=== PATIENT | female | born 1950 | race Caucasian/White ===

== ENCOUNTER → 2017-02-20 | Outpatient (CLI) | payer MEDICARE, BC ==
[~2017-02-20] MED LIST: CIPR-225 PO; METF500T4 PO; METF500T8 PO; METR500T PO; OMEP-10 PO; no home medications
--- NOTE | 2017-02-24 18:27 | Diagnostic Imaging Report ---
Digital mammogram bilateral screening. This study was compared to the prior exams of 08/22/2014 and 08/24/2010. At this time, there are no current complaints. The current study was also evaluated with a Computer Aided Detection (CAD) system. FINDINGS: There are scattered fibroglandular densities in both breasts which could obscure a lesion. Overall, there does not appear to have been any significant change when compared to the prior exam. No primary or secondary sign of malignancy is noted. IMPRESSION: 1. There is no radiographic evidence for malignancy. 2. The patient should have her annual bilateral screening mammogram on schedule in January of 2018. ACR BI-RADS Category 1: Negative. Result letter will be mailed to the patient. Note: At least 10% of breast cancer is not imaged by mammography. Dictated by: Dictated on workstation # [id number]
== END ==
LOC: RAD 10:25
PROVIDERS: ATTEND Family Medicine
DX: Z12.31 Encounter for screening mammogram for malignant neoplasm of breast (principal)
CPT/HCPCS: 77067

== ENCOUNTER 2017-02-22 17:38 | Emergency (ER) | payer MEDICARE, BC ==
[~2017-02-22] VITALS: Ht 152.4 cm; Wt 72.1 kg
[~2017-02-22 17:38] MED LIST changes: -CIPR-225 PO; -METF500T4 PO; -METF500T8 PO; -METR500T PO
[2017-02-22] MEDS ORDERED: METF500T8 PO (18:25)
[2017-02-22] MEDS ORDERED: METF500T4 PO (18:25)
[2017-02-22 18:41] LABS: BASOPHILS # (AUTO) 0.1 10^3/uL (0.0-0.1); BASOPHILS % (AUTO) 0 % (0-10); EOSINOPHILS # (AUTO) 0.3 10^3/uL (0.0-0.3); EOSINOPHILS % (AUTO) 2 % (0-10); LYMPHOCYTES # (AUTO) 2.7 X 10^3 (1.0-4.0); LYMPHOCYTES % (AUTO) 20 % (12-44); MEAN CORPUSCULAR HEMOGLOBIN 29 PG (25-34); MEAN CORPUSCULAR HGB CONC 33 G/DL (32-36); MEAN CORPUSCULAR VOLUME 87 FL (80-99); MEAN PLATELET VOLUME 11.2 FL (7.4-10.4); MONOCYTES # (AUTO) 0.7 X 10^3 (0.0-1.0); MONOCYTES % (AUTO) 5 % (0-12); NEUTROPHILS # (AUTO) 9.8 X 10^3 (1.8-7.8); NEUTROPHILS % (AUTO) 72 % (42-75); PLATELET COUNT 274 10^3/uL (130-400); RED BLOOD COUNT 5.33 10^6/uL (4.35-5.85); RED CELL DISTRIBUTION WIDTH 13.1 % (10.0-14.5); WHITE BLOOD COUNT 13.5 10^3/uL (4.3-11.0)
[2017-02-22 18:42] LABS: BILIRUBIN,URINE NEGATIVE (NEGATIVE); KETONES,URINE NEGATIVE (NEGATIVE); LEUKOCYTE ESTERASE ,URINE 1+ (NEGATIVE); NITRITE,URINE NEGATIVE (NEGATIVE); PH,URINE 6 (5-9); PROTEIN,URINE NEGATIVE (NEGATIVE); UROBILINOGEN,URINE NORMAL (NORMAL)
[2017-02-22 19:03] LABS: ALANINE AMINOTRANSFERASE 39 U/L (0-55); ALBUMIN 4.2 G/DL (3.2-4.5); ANION GAP 10 MMOL/L (5-14); ASPARTATE AMINO TRANSFERASE 20 U/L (5-34); BILIRUBIN,TOTAL 0.3 MG/DL (0.1-1.0); BLOOD UREA NITROGEN 10 MG/DL (7-18); BUN/CREATININE RATIO 12; CALCIUM 9.7 MG/DL (8.5-10.1); CARBON DIOXIDE 26 MMOL/L (21-32); CHLORIDE 106 MMOL/L (98-107); CREATININE SERUM 0.83 MG/DL (0.60-1.30); GFR ESTIMATED > 60; GLUCOSE 206 MG/DL (70-105); LIPASE 35 U/L (8-78); POTASSIUM 4.3 MMOL/L (3.6-5.0); TOTAL PROTEIN 7.9 G/DL (6.4-8.2)
[2017-02-22 19:24] LABS: SODIUM 142 MMOL/L (135-145)
--- NOTE | 2017-02-22 20:04 | Diagnostic Imaging Report ---
PROCEDURE: CT abdomen and pelvis without contrast. TECHNIQUE: Multiple contiguous axial images were obtained through the abdomen and pelvis without the use of intravenous contrast. INDICATION: Left lower quadrant pain x2 days Lung bases are clear. There is a calcified granuloma at the left lung base. There is a sliding hiatal hernia. The liver appears normal. The gallbladder is surgically absent. The pancreas appears normal. The spleen is not enlarged. The adrenal glands are normal. The kidneys appear normal. There is calcific atherosclerosis of the aorta and iliac arteries. There is no intraperitoneal free air or free fluid. There is diverticulosis of the colon. There is inflammatory change of the descending colon consistent with diverticulitis. Uterus is present. Urinary bladder appears normal. Adnexa are unremarkable. IMPRESSION: Diverticulitis of the descending colon. Dictated by: Dictated on workstation # [id number]
[2017-02-22] MEDS ORDERED: NS IV 1000 ML 1,000 ML IV ONE (20:09)
[2017-02-22] MEDS ORDERED: metroNIDAZOLE 500 MG (FLAGYL) TAB PO ONE (20:15)
[2017-02-22] MEDS ORDERED: METR500T PO (20:15)
[2017-02-22] MEDS ORDERED: CIPR-225 PO (20:15)
[2017-02-22] MEDS ORDERED: LEVOFLOXACIN 500 MG/100 ML IV 100 ML IV ONE (20:15)
--- NOTE | 2017-02-22 20:15 | ED Abdominal Pain ---
General Chief Complaint: Abdominal/GI Problems Stated Complaint: L SIDE PAIN Nursing Triage Note: PT CO OF LLQ PAIN Sepsis Screen: No Definite Risk Source of Information: Patient Exam Limitations: No Limitations History of Present Illness Time Seen By Provider: 19:25 Initial Comments This pleasant 67-year-old woman presents to the emergency room with left lower quadrant pain since yesterday morning. Temperature is 99.8. She denies any fevers over 100. She denies nausea, vomiting, diarrhea, or constipation. Urine has been normal. She denies any blood in her stools. Pain is intermittent and ranges from 0-10. Last bowel movement was this morning and was reportedly normal. She is having no significant pain at this time. Allergies and Home Medications Allergies Coded Allergies: IV Dye, Iodine Containing Contrast (Verified Allergy, 02/12/13) Uncoded Allergies: ASPRIN (Allergy, Mild, 03/02/10) Home Medications Ciprofloxacin HCl 500 Mg Tablet, 500 MG PO BID, #20 Prescribed by: CYRUS ANGEL on 02/22/172014 Metformin HCl 500 Mg Tab.er.24h, 500 MG PO DAILY, (Reported) Metronidazole 500 Mg Tablet, 500 MG PO TID, #30 Prescribed by: CYRUS ANGEL on 02/22/172014 Review of Systems Constitutional: no symptoms reported EENTM: No Symptoms Reported Respiratory: No Symptoms Reported Cardiovascular: No Symptoms Reported Gastrointestinal: See HPI Genitourinary: No Symptoms Reported Musculoskeletal: no symptoms reported Skin: no symptoms reported Psychiatric/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: No Symptoms Reported Endocrine: No Symptoms Reported Hematologic/Lymphatic: No Symptoms Reported Past Xwzffvv-Ynqpby-Rlpebu Hx Patient Social History Alcohol Use: Denies Use Recreational Drug Use: No Smoking Status: Never a Smoker Recent Foreign Travel: No Contact w/Someone Who Travel: No Recent Infectious Disease Expo: No Recent Hopitalizations: No Seasonal Allergies Seasonal Allergies: No Surgeries HX Surgeries: Yes (EGD/ESOPHAGEAL DILATIONS) Surgeries: Gallbladder, Oophorectomy, Tubal Ligation Respiratory Hx Respiratory Disorders: Yes (CPAP AT NIGHT) Respiratory Disorders: Sleep Apnea Cardiovascular Hx Cardiac Disorders: No 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 Hx 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 Genitourinary Hx Genitourinary Disorders: Yes Genitourinary Disorders: Kidney Stones Gastrointestinal Hx Gastrointestinal Disorders: Yes (esophageal strictures status post dilation) Gastrointestinal Disorders: Gastroesophageal Reflux, Hiatal Hernia Musculoskeletal Hx Musculoskeletal Disorders: No Endocrine Hx Endocrine Disorders: Yes (Diabetes, Diet controlled) Endocrine Disorders: Diabetes, Non-Insulin dep HEENT HX ENT Disorders: No Cancer Hx Cancer: No Psychosocial Hx Psychiatric Problems: No Integumentary HX Skin/Integumentary Disorder: No Blood Transfusions Hx Blood Disorders: No Physical Exam Vital Signs VS - Last 72 Hours, by Label 02/22/17 02/22/17 18:05 21:45 Temp 99.8 97.5 Pulse 114 90 Resp 18 18 B/P (MAP) 139/71 Pulse Ox 94 94 Capillary Refill : Less Than 3 Seconds General Appearance: WD/WN, no apparent distress HEENT: PERRL/EOMI, normal ENT inspection, pharynx normal Neck: normal inspection Respiratory: lungs clear, normal breath sounds, no respiratory distress, no accessory muscle use Cardiovascular: regular rate, rhythm, no edema, no murmur Gastrointestinal: normal bowel sounds, soft, tenderness (left side of abdomen) Extremities: normal inspection, no pedal edema Back: normal inspection 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, no motor/sensory deficits, alert, normal mood/affect, oriented x 3 Skin: normal color, warm/dry Progress/Results/Core Measures Results/Orders Lab Results Laboratory Tests Test 02/22/17 18:00 02/22/17 18:34 Range/Units White Blood Count 13.5 H 4.3-11.0 10^3/uL Red Blood Count 5.33 4.35-5.85 10^6/uL Hemoglobin 15.2 11.5-16.0 G/DL Hematocrit 46 35-52 % Mean Corpuscular Volume 87 80-99 FL Mean Corpuscular Hemoglobin 29 25-34 PG Mean Corpuscular Hemoglobin Concent 33 32-36 G/DL Red Cell Distribution Width 13.1 10.0-14.5 % Platelet Count 274 130-400 10^3/uL Mean Platelet Volume 11.2 H 7.4-10.4 FL Neutrophils (%) (Auto) 72 42-75 % Lymphocytes (%) (Auto) 20 12-44 % Monocytes (%) (Auto) 5 0-12 % Eosinophils (%) (Auto) 2 0-10 % Basophils (%) (Auto) 0 0-10 % Neutrophils # (Auto) 9.8 H 1.8-7.8 X 10^3 Lymphocytes # (Auto) 2.7 1.0-4.0 X 10^3 Monocytes # (Auto) 0.7 0.0-1.0 X 10^3 Eosinophils # (Auto) 0.3 0.0-0.3 10^3/uL Basophils # (Auto) 0.1 0.0-0.1 10^3/uL Sodium Level 142 135-145 MMOL/L Potassium Level 4.3 3.6-5.0 MMOL/L Chloride Level 106 98-107 MMOL/L Carbon Dioxide Level 26 21-32 MMOL/L Anion Gap 10 5-14 MMOL/L Blood Urea Nitrogen 10 7-18 MG/DL Creatinine 0.83 0.60-1.30 MG/DL Estimat Glomerular Filtration Rate > 60 BUN/Creatinine Ratio 12 Glucose Level 206 H 70-105 MG/DL Calcium Level 9.7 8.5-10.1 MG/DL Total Bilirubin 0.3 0.1-1.0 MG/DL Aspartate Amino Transf (AST/SGOT) 20 5-34 U/L Alanine Aminotransferase (ALT/SGPT) 39 0-55 U/L Alkaline Phosphatase 109 40-136 U/L Total Protein 7.9 6.4-8.2 G/DL Albumin 4.2 3.2-4.5 G/DL Lipase 35 8-78 U/L Urine Color YELLOW Urine Clarity CLEAR Urine pH 6 5-9 Urine Specific [place] 1.015 L 1.016-1.022 Urine Protein NEGATIVE NEGATIVE Urine Glucose (UA) 2+ H NEGATIVE Urine Ketones NEGATIVE NEGATIVE Urine Nitrite NEGATIVE NEGATIVE Urine Bilirubin NEGATIVE NEGATIVE Urine Urobilinogen NORMAL NORMAL MG/DL Urine Leukocyte Esterase 1+ H NEGATIVE Urine RBC (Auto) NEGATIVE NEGATIVE Urine RBC NONE /HPF Urine WBC 2-5 /HPF Urine Squamous Epithelial Cells 10-25 H /HPF Urine Crystals NONE /LPF Urine Bacteria NEGATIVE /HPF Urine Casts NONE /LPF Urine Mucus NEGATIVE /LPF Urine Culture Indicated NO My Orders Orders - CYRUS PALMER MD Cbc With Automated Diff (02/22/17 18:09) Comprehensive Metabolic Panel (02/22/17 18:09) Lipase (02/22/17 18:09) Ua Culture If Indicated (02/22/17 18:09) Saline Lock/Iv-Start (02/22/17 18:09) Ct Abdomen/Pelvis Wo (02/22/17 19:41) Ns Iv 1000 Ml (Sodium Chloride 0.9%) (02/22/17 20:09) Levofloxacin 500 Mg/100 Ml Iv (Levaquin (02/22/17 20:15) Metronidazole Tablet (Flagyl Tablet) (02/22/17 20:15) Acetaminophen Tablet (Tylenol Tablet) (02/22/17 20:30) Iv Infusion <= First Hr Ed (02/22/17 ) Vital Signs/I&O Vital Sign - Last 12Hours 02/22/17 02/22/17 18:05 21:45 Temp 99.8 97.5 Pulse 114 90 Resp 18 18 B/P (MAP) 139/71 Pulse Ox 94 94 Blood Pressure Mean: 93 Progress Note : Progress Note Patient was found to have leukocytosis. In the context of left-sided abdominal pain, colitis or diverticulitis was suspected. Options were discussed including empiric antibiotic therapy versus imaging. Patient elects imaging. Diverticulitis was identified on the CT scan. A dose of IV Levaquin was administered in the emergency room as patient does have diabetes and had borderline vital signs. Flagyl was administered orally along with Tylenol. A liter of IV fluids was infused. Return precautions were discussed. Diagnostic Imaging Diagonstic Imaging: CT Plain Films/CT/US/NM/MRI: abdomen, pelvis Comments CT abdomen and pelvis viewed by me and report reviewed. See report below: NAME: ROXANA ACOSTA [facility] REC#: [id number] PT STATUS: REG ER : 1950 PHYSICIAN: CYRUS PALMER MD ADMIT DATE: 02/22/17/ER Signed Date of Exam: 02/22/17 CT ABDOMEN/PELVIS WO PROCEDURE: CT abdomen and pelvis without contrast. TECHNIQUE: Multiple contiguous axial images were obtained through the abdomen and pelvis without the use of intravenous contrast. INDICATION: Left lower quadrant pain x2 days Lung bases are clear. There is a calcified granuloma at the left lung base. There is a sliding hiatal hernia. The liver appears normal. The gallbladder is surgically absent. The pancreas appears normal. The spleen is not enlarged. The adrenal glands are normal. The kidneys appear normal. There is calcific atherosclerosis of the aorta and iliac arteries. There is no intraperitoneal free air or free fluid. There is diverticulosis of the colon. There is inflammatory change of the descending colon consistent with diverticulitis. Uterus is present. Urinary bladder appears normal. Adnexa are unremarkable. IMPRESSION: Diverticulitis of the descending colon. Dictated by: Dictated on workstation # [id number] Dict: 02/22/171999 Trans: 02/22/172003 NEAL [id number] Interpreted by: COSME WOOD Electronically signed by:COSME WOOD 02/22/172003 Departure Impression Impression: Primary Impression: Diverticulitis of intestine Qualified Codes: K57.32 - Diverticulitis of large intestine without perforation or abscess without bleeding Disposition: HOME, SELF-CARE Condition: Improved Departure-Patient Inst. Decision time for Depature: 20:12 Referrals: JOON ARCEO MD (PCP/Family) Primary Care Physician Patient Instructions: Diverticulitis (DC) Add. Discharge Instructions: Complete your antibiotics as prescribed. Clear liquid diet until pain improves. Then gradually advance your diet with small quantities of bland food as tolerated. Avoid foods with fibrous particulate matter such as popcorn, frequent with small seeds, nuts, etc. Return to care if symptoms worsen. Follow up with your doctor later this week. Take Tylenol up to 1000 mg every 6 hours as needed for pain. All discharge instructions reviewed with patient and/or family. Voiced understanding. Scripts Ciprofloxacin HCl (Cipro) 500 Mg Tablet 500 MG PO BID, #20 TAB Prov: CYRUS PALMER MD 02/22/17 Metronidazole (Flagyl) 500 Mg Tablet 500 MG PO TID, #30 TAB Prov: CYRUS PALMER MD 02/22/17 Copy Copies To 1: JOON ARCEO MD, JOSHUA T MD Feb 22, 2017 20:15
[2017-02-22] MEDS ORDERED: ACETAMINOPHEN 500 MG TAB (TYLENOL) PO ONE (20:30)
[2017-02-22 21:45] VITALS: BP 139/65
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
== END 2017-02-22 21:47 | disposition home or self-care (01) ==
LOC: EDUNIT# 17:38 → ER 17:39
DX: K57.32 Diverticulitis of large intestine without perforation or abscess without bleeding (principal); E11.9 Type 2 diabetes mellitus without complications
CPT/HCPCS: 36415; 74176; 80053; 81000; 83690; 85025; 96361; 96365

== ENCOUNTER → 2017-08-18 | Outpatient (CLI) | payer MEDICARE, BC ==
[~2017-08-18] MED LIST changes: +CIPR-225 PO; +METF500T4 PO; +METF500T8 PO; +METR500T PO; +PANT40TA2 PO
== END ==
LOC: PREOP 12:10
PROVIDERS: ATTEND Surgery
DX: Z01.818 Encounter for other preprocedural examination (principal); R13.10 Dysphagia, unspecified; K21.9 Gastro-esophageal reflux disease without esophagitis

== ENCOUNTER 2017-08-19 08:57 | Day surgery (SDC) | payer MEDICARE, BC ==
[~2017-08-19] VITALS: Ht 152.4 cm; Wt 72.4 kg
[~2017-08-19 08:57] MED LIST changes: -PANT40TA2 PO
[2017-08-19 09:22] VITALS: BP 146/91
[2017-08-19] MEDS ORDERED: NS IV 500 ML 500 ML ONE (09:23)
[2017-08-19] MEDS ORDERED: NS IV 500 ML 500 ML IV SCH (09:30)
[2017-08-19] MEDS ORDERED: HURRICAINE EXT TUBE (BENZOCAINE) XX PRN (09:30)
[2017-08-19] MEDS ORDERED: LIDOCAINE JELLY 2% (XYLOCAINE) 5 ML TUBE MM PRN (09:30)
[2017-08-19] MEDS ORDERED: MIDAZOLAM 2 MG/2 ML (VERSED) VIAL ONE ×3 (10:41)
[2017-08-19] MEDS ORDERED: LIDOCAINE JELLY 2% (XYLOCAINE) 5 ML TUBE ONE (10:42)
[2017-08-19] MEDS ORDERED: fentaNYL INJECTION 100 MCG/2 ML AMP ONE (10:42)
[2017-08-19] MEDS ORDERED: HURRICAINE EXT TUBE (BENZOCAINE) ONE (10:42)
--- NOTE | 2017-08-19 10:47 | Conscious Sedation/ASA ---
Conscious Sedation Pre-Proced Time Reviewed: 10:00 ASA Class: 2 Airway Mallampati Classification: ([place] appropriate class) I. II. III, IV Lungs Heart ASA score ASA 1: a normal healthy patient ASA 2: a patient with a mild systemic disease (mid diabetes, controlled hypertension, obesity ASA 3: a patient with a severe systemic disease that limits activity (angina , COPD, prior Myocardial infarction) ASA 4: a patient with an incapacitating disease that is a constant threat to life (CHF, renal failure) ASA 5: a moribund patient not expected to survive 24 hrs. (ruptured aneurysm) ASA 6: a declared brain patient whose organs are being harvested. For emergent operations, add the letter E after the classification Grade 2 Sedation Plan: Analgesia, Amnesia, Plan communicated to team members, Discussed options with patient/fam, Discussed risks with patient/fam Note The patient is an appropriate candidate to undergo the planned procedure, sedation, and anesthesia. The patient immediately re-assessed prior to indication. LEE MOSS MD Aug 19, 2017 10:47 am
--- NOTE | 2017-08-19 10:47 | Progress Note-Pre Operative ---
Pre-Operative Progress Note H&P Reviewed The H&P was reviewed, patient examined and no changes noted. Date Seen by Provider: Aug 19, 2017 Time Seen by Provider: 10:00 Date H&P Reviewed: Aug 19, 2017 Time H&P Reviewed: 10:00 Pre-Operative Diagnosis: dysphagia LEE MOSS MD Aug 19, 2017 10:47 am
[2017-08-19] MEDS: fentaNYL INJECTION 100 MCG/2 ML AMP IVP PRN ×2 (10:48→10:53)
[2017-08-19] MEDS: MIDAZOLAM 2 MG/2 ML (VERSED) VIAL IVP PRN ×2 (10:50→10:55)
[2017-08-19] MEDS ORDERED: ACETAMINOPHEN 325 MG TABLET/CAPLET (TYLENOL) PO PRN (11:00)
[2017-08-19] MEDS ORDERED: morphine INJ 10 MG/ML 1ML (SYR OR VIAL) IV PRN (11:00)
[2017-08-19] MEDS ORDERED: ONDANSETRON 4 MG/2 ML (SDV) Z0FRAN IV PRN (11:00)
[2017-08-19] MEDS ORDERED: HYDROcodone/APAP 5 MG/325 MG (LORTAB) TAB PO PRN (11:00)
--- NOTE | 2017-08-19 11:18 | Progress Note-Post Operative ---
Post-Operative Progess Note Surgeon (s)/Manager Of It (s) Surgeon LEE MOSS MD Manager Of It: none Pre-Operative Diagnosis dysphagia Post-Operative Diagnosis reflux esophagitis(B-C), distal esophageal stricture, large HH(4cm), moderate gastritis. Procedure & Operative Findings Date of Procedure 08/19/17 Procedure Performed/Findings EGD with bx and balloon dilatation. Anesthesia Type GET Estimated Blood Loss Estimated blood loss (mL): minimal Specimens/Packing Specimens Removed antrum, GE jxn LEE MOSS MD Aug 19, 2017 11:18 am
[2017-08-19] MEDS ORDERED: PANT40TA2 PO ×2 (11:19)
--- NOTE | 2017-08-19 11:20 | Discharge Inst-Surgical ---
D/C Lap Instructions-KIDO New, Converted, or Re-Newed RX: RX on Chart Follow Up PRN Activity as tolerated High Fiber Diet 25g or more per day Avoid Alcohol, Caffeine, Spicy [place] and Acid foods. Drink 64 fluid oz or more of fluids per day. Symptoms to Report: Fever over 101 degree F, Nausea/Vomiting If any problems/questions: Contact your physician or go to Emergency Room LEE MOSS MD Aug 19, 2017 11:20 am
[2017-08-19 11:30] VITALS: BP 147/83
[2017-08-19 12:10] VITALS: BP 123/69
--- NOTE | 2017-08-19 21:36 | OPERATIVE REPORT ---
DATE OF SERVICE: 08/19/2017 ATTENDING PRIMARY CARE PHYSICIAN: Dr. Krystal Benavides. PREOPERATIVE DIAGNOSIS: Dysphagia. POSTOPERATIVE DIAGNOSIS: Reflux esophagitis between class B and C, moderate distal esophageal stricture, large hiatal hernia approximately 4 cm in size, moderate severity gastritis. PROCEDURE: EGD with biopsy and balloon dilatation. SURGEON: Dr. Moss. ANESTHESIA: Conscious sedation. ESTIMATED BLOOD LOSS: Minimal. FINDINGS: Reflux esophagitis between class B and C with a distal esophageal stricture and Schatzki's ring. There is also a concomitant large hiatal hernia approximately 4 cm in size. Moderate severity gastritis. Pylorus and duodenum appeared normal with no distal obstructions. DISPOSITION: The patient tolerated the procedure well. INDICATIONS: The patient is a 67-year-old female who was referred to us for reflux type of symptoms progressing the dysphagia. She reports that she has had this issue before in the past and has undergone previous EGDs as well as dilatations. Her last one was approximately 4 years ago. Over time she reports recurrent episodes of reflux which were initially manageable; however, she developed dysphagia, especially for specific solids with substernal pressure sensation and occasional episodes of regurgitation. DESCRIPTION OF PROCEDURE: The patient was brought to the endoscopy suite, laid in the left lateral decubitus position. After adequate IV pain and sedating medications and conscious sedation anesthesia, the mouthpiece was applied. The endoscope was placed in the mouth, visualizing the pharynx and hypopharyngeal region. Vocal cords, epiglottis and vallecula identified and appeared to be normal. The endoscope was then gently intubated at the esophageal opening and esophagus insufflated. The endoscope was then advanced to the first, second and third portions of the esophagus. At the level of the GE junction, a reflux esophagitis between class B and C identified. There was also a distal esophageal stricture identified which was moderate in severity. A biopsy was taken of this area using biopsy forceps with visualization of good hemostasis. The endoscope was then advanced through the area of stricture with minimal resistance and the endoscope retroflexed, visualizing a large hiatal hernia approximately 4 cm in size. The stricture was also identified through this view. A moderate severity gastritis was noted. There were no formal ulcers, polyps or any neoplasms identified. A biopsy was taken of the stomach antrum with visualization of good hemostasis. The endoscope was then advanced through the pylorus and the first and second portions of the duodenum, which appeared normal with no distal obstructions. We then proceeded with dilatation of esophageal stricture. A medium sized CRE fixed guidewire balloon was placed into the stomach under direct visualization. The balloon was then pulled back to the area of the stricture. We first proceeded with 3 atmospheres of pressure or 15 mm in diameter with no resistance. We then proceeded to 4.5 atmospheres of pressure or 17 mm diameter with minimal resistance. We then proceeded to 7 atmospheres of pressure or 18 mm in diameter with mild to moderate resistance and left this in place for approximately 60 seconds. The balloon was desufflated and removed. There were no mucosal tears or any bleeding identified. The endoscope was then slowly withdrawn while suctioning residual air and taking a second look with no additional findings. The patient tolerated the procedure well. We will have her undergo the necessary lifestyle and diet accommodation including small and more frequent meals, avoidance of eating at night as well as head elevation while laying supine. She also needs to avoid caffeinated beverages, spicy, greasy and acidic foods. We will also start her on Protonix 40 mg daily. Job ID: [id number] DocumentID: [id number] Dictated Date: 08/19/2017 11:25:37 Time Study Technician Date: 08/19/2017 21:35:38 Dictated By: LEE MOSS MD
== END 2017-08-19 12:23 | disposition home or self-care (01) ==
LOC: ENDO 08:57
PROVIDERS: ATTEND Surgery
DX: K21.0 Gastro-esophageal reflux disease with esophagitis (principal); K22.2 Esophageal obstruction; K44.9 Diaphragmatic hernia without obstruction or gangrene; K29.70 Gastritis, unspecified, without bleeding; E11.9 Type 2 diabetes mellitus without complications; Z79.84 Long term (current) use of oral hypoglycemic drugs
CPT/HCPCS: 88305; 88342

== ENCOUNTER → 2018-12-02 | Outpatient (CLI) | payer MEDICARE, BC ==
[~2018-12-02] MED LIST changes: +METF-397 PO; -METF500T4 PO; +PANT40TA2 PO
--- NOTE | 2018-12-02 16:59 | Diagnostic Imaging Report ---
INDICATION: Right flank pain EXAMINATION: KUB 4:31 p.m. Gallbladder surgically absent. Bowel gas pattern is normal. There are no pathologic masses or calcifications. IMPRESSION: No acute abnormalities in the abdomen. Dictated by: Dictated on workstation # [id number]
== END ==
LOC: RAD 16:00
PROVIDERS: ATTEND Nurse Practitioner Family
DX: R10.9 Unspecified abdominal pain (principal); Z90.49 Acquired absence of other specified parts of digestive tract
CPT/HCPCS: 74018

== ENCOUNTER → 2018-12-09 | Outpatient (CLI) | payer MEDICARE, BC ==
[2018-12-09 09:11] LABS: ALANINE AMINOTRANSFERASE 64 U/L (0-55); ALBUMIN 4.1 GM/DL (3.2-4.5); ALKALINE PHOSPHATASE 85 U/L (40-136); BILIRUBIN,TOTAL 0.5 MG/DL (0.1-1.0); BUN/CREATININE RATIO 15; CALCIUM 9.4 MG/DL (8.5-10.1); CARBON DIOXIDE 24 MMOL/L (21-32); CHLORIDE 108 MMOL/L (98-107); CREATININE SERUM 0.75 MG/DL (0.60-1.30); GFR ESTIMATED > 60; GLUCOSE 130 MG/DL (70-105); POTASSIUM 4.2 MMOL/L (3.6-5.0); SODIUM 142 MMOL/L (135-145); TOTAL PROTEIN 7.4 GM/DL (6.4-8.2)
--- NOTE | 2018-12-09 10:25 | Diagnostic Imaging Report ---
PROCEDURE: CT abdomen and pelvis without contrast. TECHNIQUE: Multiple contiguous axial images were obtained through the abdomen and pelvis without the use of intravenous contrast. INDICATION: Right flank pain. COMPARISON: Comparison is made with prior CT from 02/22/2017. FINDINGS: The lung bases are clear apart from a calcified granuloma in the left lower lobe. No discrete liver mass is seen. The gallbladder is surgically absent. No biliary duct dilatation is seen. The pancreas and spleen are unremarkable. No adrenal mass is seen. No definite renal calculi or hydronephrosis is identified apart from questionable tiny nonobstructing calculus upper pole right kidney. No definite ureteral or bladder calculi are seen. There is a moderate-sized hiatal hernia. The aorta is non-aneurysmal but heavily calcified. The bowel loops are normal caliber. There is no ascites. IMPRESSION: 1. Moderate-sized hiatal hernia. 2. Tiny nonobstructing right upper pole renal calculus. No ureteral calculi or hydronephrosis is detected. Dictated by: Dictated on workstation # [id number]
== END ==
LOC: RAD 08:17
PROVIDERS: ATTEND Nurse Practitioner Family
DX: K44.9 Diaphragmatic hernia without obstruction or gangrene (principal); Z90.49 Acquired absence of other specified parts of digestive tract
CPT/HCPCS: 36415; 74176; 80053

== ENCOUNTER 2019-01-13 12:38 | Inpatient (IN) | payer MEDICARE, BC ==
[~2019-01-13] VITALS: Ht 154.9 cm; Wt 73.0 kg
--- OUTSIDE RECORDS SUMMARY | 2019-01-13 12:47 | XMS REPORT | CCD ---
Author Author Nadia Lin Organization Krystal Benavides MD, [facility] Address [address] [place] [address] Phone Care Team Providers Care Commercial Finance Manager Name Role Phone PP Unavailable CCM Unavailable Summary Purpose Interface Exchange Insurance Providers Payer name Policy type / Coverage type Covered constitution party ID Effective Begin Date Effective End Date WPS Medicare Part B Medicare Part B [id number] 2018 Unknown [facility] Medicare Part B [id number] Unknown Family history Daughter Diagnosis Age At Onset Alcoholism Unknown Diabetes mellitus Type 2 Unknown Mother Diagnosis Age At Onset Alcoholism Unknown Ovarian cancer Unknown Cancer Unknown Bleeding disorders Unknown cervical cancer Unknown Runs in the family Diagnosis Age At Onset Heart disease Unknown Diabetes mellitus Type 2 Unknown Brother Diagnosis Age At Onset Diabetes mellitus Type 2 Unknown Father Diagnosis Age At Onset Kidney cancer Unknown Cancer Unknown Social History Social History Element Codes Description Effective Dates Employment Unknown 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 [employer] 02/26/2018 Marital status Unknown Raúl 07/24/2016 Number of children Unknown 10 2 07/24/[address]: 8529266 Former smoker quit 2005 07/24/[address]: 809859410 Never drinks alcohol 07/24/2016 Allergies, Adverse Reactions, Alerts Substance Reaction Codes Entered Date Inactivated Date Status aspirin hives, RxNorm: 1191 07/24/2016 No Inactive Date Active IV DYE, IODINE CONTAINING hives Unknown 07/24/2016 No Inactive Date Active Past Medical History Illness Codes Condition Status Onset Date Resolved Date Right lower quadrant pain ICD-9: 789.03 ICD-10: R10.31 Active 12/02/2018 Unknown Encounter for general adult medical examination with abnormal findings ICD-9: V70.0 ICD-10: Z00.01 Active 02/20/2017 Unknown Rash and other nonspecific skin eruption ICD-9: 782.1 ICD-10: R21 Active 08/23/2018 Unknown Type 2 diabetes mellitus without complications ICD-9: 250.00 ICD-10: E11.9 Active 07/23/2016 Unknown Gastro-esophageal reflux disease without esophagitis ICD-9: 530.81 ICD-10: K21.9 Active 12/15/2017 Unknown Primary central sleep apnea ICD-9: 327.22 ICD-10: G47.31 Active 12/15/2017 Unknown Diabetes Unknown Active 08/10/2017 Unknown Dysphagia, pharyngeal phase ICD-9: 787.23 ICD-10: R13.13 Active 08/10/2017 Unknown Encounter for screening mammogram for malignant neoplasm of breast ICD-9: V76.12 ICD-10: Z12.31 Active 02/10/2017 Unknown sleep apnea Unknown Active 07/24/2016 Unknown Torticollis Unknown Active 1950 Unknown Obstructive sleep apnea (adult) (pediatric) ICD-9: 327.23 ICD-10: G47.33 Active 07/23/2016 Unknown Personal history of colonic polyps ICD-9: V12.72 ICD-10: Z86.010 Active 07/23/2016 Unknown Problems Condition Codes Effective Dates Condition Status Right lower quadrant pain ICD-9: 789.03 ICD-10: R10.31 12/02/2018 Active Encounter for general adult medical examination with abnormal findings ICD-9: V70.0 ICD-10: Z00.01 02/20/2017 Active Rash and other nonspecific skin eruption ICD-9: 782.1 ICD-10: R21 08/23/2018 Active Type 2 diabetes mellitus without complications ICD-9: 250.00 ICD-10: E11.9 07/23/2016 Active Gastro-esophageal reflux disease without esophagitis ICD-9: 530.81 ICD-10: K21.9 12/15/2017 Active Primary central sleep apnea ICD-9: 327.22 ICD-10: G47.31 12/15/2017 Active Diabetes Unknown 08/10/2017 Active Dysphagia, pharyngeal phase ICD-9: 787.23 ICD-10: R13.13 08/10/2017 Active Encounter for screening mammogram for malignant neoplasm of breast ICD-9: V76.12 ICD-10: Z12.31 02/10/2017 Active sleep apnea Unknown 07/24/2016 Active Torticollis Unknown 1950 Active Obstructive sleep apnea (adult) (pediatric) ICD-9: 327.23 ICD-10: G47.33 07/23/2016 Active Personal history of colonic polyps ICD-9: V12.72 ICD-10: Z86.010 07/23/2016 Active Medications Medication Codes Instructions Start Date Stop Date Status Fill Instructions metformin 1,000 mg tablet RxNorm: 311260 Tablet(s) TAKE ONE TABLET BY MOUTH TWICE A DAY 11/19/2018 05/17/2019 Active metformin 1,000 mg tablet RxNorm: 734675 TAKE ONE TABLET BY MOUTH TWICE A DAY 11/18/2018 11/18/2018 Inactive metformin 1,000 mg tablet RxNorm: 926431 TAKE ONE TABLET BY MOUTH TWICE A DAY 11/17/2018 11/17/2018 Inactive betamethasone valerate 0.1 % topical cream RxNorm: 303230 1 Application TOP BID 09/06/2018 09/05/2018 Inactive betamethasone valerate 0.1 % topical cream RxNorm: 818959 1 Application TOP BID 09/06/2018 09/06/2018 Inactive Diflucan 150 mg tablet RxNorm: 696549 1 Tablet(s) PO daily 09/12/2018 Inactive ketoconazole 2 % topical cream RxNorm: 541666 1 Application TOP BID 09/06/2018 09/19/2018 Inactive Diflucan 150 mg tablet RxNorm: 471319 1 Tablet(s) PO daily 09/05/2018 Inactive ketoconazole 2 % topical cream RxNorm: 174469 1 Application TOP BID 09/06/2018 09/05/2018 Inactive metformin 1,000 mg tablet RxNorm: 027670 TAKE ONE TABLET BY MOUTH TWICE A DAY 08/18/2018 11/15/2018 Inactive metformin 1,000 mg tablet RxNorm: 968373 Tablet(s) PO TAKE ONE TABLET BY MOUTH TWICE A DAY 01/13/2018 05/12/2018 Inactive metformin 1,000 mg tablet RxNorm: 337020 Tablet(s) PO TAKE ONE TABLET BY MOUTH TWICE A DAY 01/11/2018 01/12/2018 Inactive metformin 1,000 mg tablet RxNorm: 579205 1 Tablet(s) PO BID 11/201701/17/2018 Inactive metformin 500 mg tablet RxNorm: 616340 TAKE ONE TABLET BY MOUTH TWICE A DAY 10/30/2017 01/10/2018 Inactive Pepcid 20 mg tablet RxNorm: 429780 1 Tablet(s) PO BID 201603/07/2018 Inactive metformin 500 mg tablet RxNorm: 072756 TAKE ONE TABLET BY MOUTH TWICE A DAY 08/04/2017 10/29/2017 Inactive metformin 500 mg tablet RxNorm: 639460 TAKE ONE TABLET BY MOUTH TWICE A DAY 08/04/2017 12/23/2017 Inactive metformin 500 mg tablet RxNorm: 685256 1 Tablet(s) PO BID 12/2307/20/2017 Inactive metformin 500 mg tablet RxNorm: 187570 1 Tablet(s) PO BID 08/0712/22/2016 Inactive Tylenol PM Extra Strength 25 mg-500 mg tablet RxNorm: 9297244 1 Tablet(s) PO QHS No Start Date Active Hair,Nails and Skin Vitamin oral RxNorm: 13395 oral No Start Date Active metformin 500 mg tablet RxNorm: 386619 1 Tablet(s) PO BID No Start Date 08/06/2016 Inactive Medication Administered No Medication Administered data Immunizations No Immunization data Assessments Condition Codes Effective Dates Right lower quadrant pain ICD-10: R10.31 ICD-9: 789.03 12/02/2018 Type 2 diabetes mellitus without complications ICD-10: E11.9 ICD-9: 250.00 08/23/2018 Rash and other nonspecific skin eruption ICD-10: R21 ICD-9: 782.1 08/23/2018 Encounter for general adult medical examination with abnormal findings ICD-10: Z00.01 ICD-9: V70.0 02/26/2018 Primary central sleep apnea ICD-10: G47.31 ICD-9: 327.22 12/15/2017 Gastro-esophageal reflux disease without esophagitis ICD-10 : K21.9 ICD-9: 530.81 12/15/2017 Dysphagia, pharyngeal phase ICD-10: R13.13 ICD-9: 787.23 08/10/2017 Encounter for screening mammogram for malignant neoplasm of breast ICD-10: Z12.31 ICD-9: V76.12 02/10/2017 Obstructive sleep apnea (adult) (pediatric) ICD-10: G47.33 ICD-9: 327.23 07/24/2016 Personal history of colonic polyps ICD-10: Z86.010 ICD-9: V12.72 07/24/2016 Reason For Visit Reason For Visit Effective Dates Notes abdominal pain 12/02/2018 rash 08/23/2018 Annual Medicare Wellness Exam 02/26/2018 diabetes mellitus 12/15/2017 diabetes mellitus 08/10/2017 Annual Medicare Wellness Exam 02/20/2017 diabetes mellitus 02/10/2017 diabetes mellitus 07/24/2016 Results Observation Observation Code Item Item Code Result Date Tsh Ord6 TSH (3rd IS) 0.57 uIU/mL 08/27/2018 Lipid Ord30 CHOL 167 mg/dL 08/27/2018 Lipid Ord30 HDL 46.0 mg/dl 08/27/2018 Lipid Ord30 TRIG 204 mg/dL 08/27/2018 Lipid Ord30 LDL 80 mg/dL 08/27/2018 Lipid Ord30 C/HDL 3.6 Ratio 08/27/2018 Comp Metabolic Jiw800 NA 143 mEq/L 08/27/2018 Comp Metabolic Jit141 K 4.3 mEq/L 08/27/2018 Comp Metabolic Bcu468 CL 106 mEq/L 08/27/2018 Comp Metabolic Mbw429 CO2 29.0 mEq/L 08/27/2018 Comp Metabolic Lsu270 ANION GAP 12 08/27/2018 Comp Metabolic Vgj115 GLUCOSE 116 mg/dL 08/27/2018 Comp Metabolic Btp998 Creat 0.7 mg/dL 08/27/2018 Comp Metabolic Uho604 eGFR 85 ml/min/1.73m2 08/27/2018 Comp Metabolic Lsh347 BUN 9 mg/dL 08/27/2018 Comp Metabolic Ugq491 B/C Ratio 12.5 Ratio 08/27/2018 Comp Metabolic Wvb544 CALCIUM 9.4 mg/dL 08/27/2018 Comp Metabolic Gke960 ALK PHOS 86 U/L 08/27/2018 Comp Metabolic Qjt475 AST(SGOT) 29 U/L 08/27/2018 Comp Metabolic Zlj508 ALT(SGPT) 56 U/L 08/27/2018 Comp Metabolic Uad897 BILI T 0.5 mg/dL 08/27/2018 Comp Metabolic Ylf724 ALBUMIN 4.1 g/dL 08/27/2018 Comp Metabolic Rmm586 TPRO 6.7 g/dL 08/27/2018 Comp Metabolic Nyd523 GLOB 2.6 g/dL 08/27/2018 Comp Metabolic Cgo749 A/G Ratio 1.6 Ratio 08/27/2018 Comp Metabolic Vic381 Osmo 285 mOsmo 08/27/2018 %Hba1C Edw981 % HbA1c 55895-7 6.5 % 08/27/2018 %Hba1C Vsv191 Gluc Ave 140 mg/dL 08/27/2018 Cbc With Differential Ord2 WBC 6.97 K/ul 08/27/2018 Cbc With Differential Ord2 RBC 5.08 M/ul 08/27/2018 Cbc With Differential Ord2 HGB 14.7 g/dl 08/27/2018 Cbc With Differential Ord2 HCT 45.2 % 08/27/2018 Cbc With Differential Ord2 Neut% 54.5 % 08/27/2018 Cbc With Differential Ord2 MCV 89.0 fl 08/27/2018 Cbc With Differential Ord2 Lymph% 31.1 % 08/27/2018 Cbc With Differential Ord2 MCH 28.9 pg 08/27/2018 Cbc With Differential Ord2 [place]% 6.9 % 08/27/2018 Cbc With Differential Ord2 MCHC 32.5 pg 08/27/2018 Cbc With Differential Ord2 Eos% 6.6 % 08/27/2018 Cbc With Differential Ord2 Baso% 0.9 % 08/27/2018 Cbc With Differential Ord2 PLT 245 K/ul 08/27/2018 Cbc With Differential Ord2 Neut ABS# 3.80 K/ul 08/27/2018 Cbc With Differential Ord2 RDW 13.6 % 08/27/2018 Cbc With Differential Ord2 Lymph ABS# 2.17 K/ul 08/27/2018 Cbc With Differential Ord2 [place] ABS# 0.5 K/ul 08/27/2018 Cbc With Differential Ord2 Eos ABS# 0.5 K/ul 08/27/2018 Cbc With Differential Ord2 Baso ABS# 0.1 K/ul 08/27/2018 %Hba1C Jyd022 % HbA1c 09035-6 7.4 % 12/18/2017 %Hba1C Sla477 Gluc Ave 166 mg/dL 12/18/2017 Cbc With Differential Ord2 WBC 6.00 K/ul 12/18/2017 Cbc With Differential Ord2 RBC 5.02 M/ul 12/18/2017 Cbc With Differential Ord2 HGB 14.2 g/dl 12/18/2017 Cbc With Differential Ord2 HCT 43.9 % 12/18/2017 Cbc With Differential Ord2 Neut% 47.1 % 12/18/2017 Cbc With Differential Ord2 MCV 87.5 fl 12/18/2017 Cbc With Differential Ord2 Lymph% 37.5 % 12/18/2017 Cbc With Differential Ord2 MCH 28.3 pg 12/18/2017 Cbc With Differential Ord2 [place]% 6.8 % 12/18/2017 Cbc With Differential Ord2 MCHC 32.3 pg 12/18/2017 Cbc With Differential Ord2 Eos% 7.8 % 12/18/2017 Cbc With Differential Ord2 PLT 218 K/ul 12/18/2017 Cbc With Differential Ord2 Baso% 0.8 % 12/18/2017 Cbc With Differential Ord2 RDW 14.0 % 12/18/2017 Cbc With Differential Ord2 Neut ABS# 2.82 K/ul 12/18/2017 Cbc With Differential Ord2 Lymph ABS# 2.25 K/ul 12/18/2017 Cbc With Differential Ord2 [place] ABS# 0.4 K/ul 12/18/2017 Cbc With Differential Ord2 Eos ABS# 0.5 K/ul 12/18/2017 Cbc With Differential Ord2 Baso ABS# 0.1 K/ul 12/18/2017 Microalbumin Pne411 MicroAlb <0.7 mg/dL 12/18/2017 Comp Metabolic Ahf772 NA 143 mEq/L 12/18/2017 Comp Metabolic Xva167 K 4.1 mEq/L 12/18/2017 Comp Metabolic Fyg890 CL 106 mEq/L 12/18/2017 Comp Metabolic Ple001 CO2 29.0 mEq/L 12/18/2017 Comp Metabolic Wea958 ANION GAP 12 12/18/2017 Comp Metabolic Xza126 GLUCOSE 147 mg/dL 12/18/2017 Comp Metabolic Bft781 Creat 0.7 mg/dL 12/18/2017 Comp Metabolic Klu397 eGFR 83 ml/min/1.73m2 12/18/2017 Comp Metabolic Tuk961 BUN 11 mg/dL 12/18/2017 Comp Metabolic Lch626 B/C Ratio 14.9 Ratio 12/18/2017 Comp Metabolic Mng775 CALCIUM 9.6 mg/dL 12/18/2017 Comp Metabolic Ooa582 ALK PHOS 98 U/L 12/18/2017 Comp Metabolic Bcp541 AST(SGOT) 26 U/L 12/18/2017 Comp Metabolic Loe650 ALT(SGPT) 48 U/L 12/18/2017 Comp Metabolic Lcc385 BILI T 0.4 mg/dL 12/18/2017 Comp Metabolic Aom230 ALBUMIN 3.9 g/dL 12/18/2017 Comp Metabolic Caj776 TPRO 6.8 g/dL 12/18/2017 Comp Metabolic Tdy745 GLOB 2.9 g/dL 12/18/2017 Comp Metabolic Ihn574 A/G Ratio 1.4 Ratio 12/18/2017 Comp Metabolic Mcc429 Osmo 287 mOsmo 12/18/2017 Tsh Ord6 TSH (3rd IS) 1.24 uIU/mL 12/18/2017 Lipid Ord30 CHOL 153 mg/dL 12/18/2017 Lipid Ord30 HDL 45.0 mg/dl 12/18/2017 Lipid Ord30 TRIG 163 mg/dL 12/18/2017 Lipid Ord30 LDL 75 mg/dL 12/18/2017 Lipid Ord30 C/HDL 3.4 Ratio 12/18/2017 %Hba1C Tds910 % HbA1c 78012-4 7.0 % 02/20/2017 %Hba1C Kxy292 Gluc Ave 154 mg/dL 02/20/2017 Tsh Ord6 hTSH II 0.51 uIU/mL 11/14/2016 Cbc With Differential Ord2 WBC 5.89 K/ul 11/14/2016 Cbc With Differential Ord2 RBC 5.12 M/ul 11/14/2016 Cbc With Differential Ord2 HGB 14.9 g/dl 11/14/2016 Cbc With Differential Ord2 Neut% 56.0 % 11/14/2016 Cbc With Differential Ord2 HCT 45.6 % 11/14/2016 Cbc With Differential Ord2 Lymph% 30.6 % 11/14/2016 Cbc With Differential Ord2 MCV 89.1 fl 11/14/2016 Cbc With Differential Ord2 MCH 29.1 pg 11/14/2016 Cbc With Differential Ord2 [place]% 6.3 % 11/14/2016 Cbc With Differential Ord2 MCHC 32.7 pg 11/14/2016 Cbc With Differential Ord2 Eos% 6.3 % 11/14/2016 Cbc With Differential Ord2 Baso% 0.8 % 11/14/2016 Cbc With Differential Ord2 PLT 248 K/ul 11/14/2016 Cbc With Differential Ord2 Neut ABS# 3.30 K/ul 11/14/2016 Cbc With Differential Ord2 RDW 13.8 % 11/14/2016 Cbc With Differential Ord2 Lymph ABS# 1.80 K/ul 11/14/2016 Cbc With Differential Ord2 [place] ABS# 0.4 K/ul 11/14/2016 Cbc With Differential Ord2 Eos ABS# 0.4 K/ul 11/14/2016 Cbc With Differential Ord2 Baso ABS# 0.1 K/ul 11/14/2016 Comp Metabolic Ifa957 NA 138 mEq/L 11/14/2016 Comp Metabolic Ved655 K 4.2 mEq/L 11/14/2016 Comp Metabolic Hgz750 CL 104 mEq/L 11/14/2016 Comp Metabolic Rax751 CO2 30.0 mEq/L 11/14/2016 Comp Metabolic Msh574 ANION GAP 8 11/14/2016 Comp Metabolic Xor888 GLUCOSE 154 mg/dL 11/14/2016 Comp Metabolic Vky794 Creat 0.7 mg/dL 11/14/2016 Comp Metabolic Frb210 eGFR 86 ml/min/1.73m2 11/14/2016 Comp Metabolic Kry292 BUN 12 mg/dL 11/14/2016 Comp Metabolic Vid429 B/C Ratio 16.7 Ratio 11/14/2016 Comp Metabolic Suh320 CALCIUM 10.0 mg/dL 11/14/2016 Comp Metabolic Oae412 ALK PHOS 103 U/L 11/14/2016 Comp Metabolic Epn549 AST(SGOT) 27 U/L 11/14/2016 Comp Metabolic Qdo627 ALT(SGPT) 50 U/L 11/14/2016 Comp Metabolic Iox712 BILI T 0.4 mg/dL 11/14/2016 Comp Metabolic Lhv440 ALBUMIN 4.4 g/dL 11/14/2016 Comp Metabolic Nlh161 TPRO 7.4 g/dL 11/14/2016 Comp Metabolic Gyn894 GLOB 3.0 g/dL 11/14/2016 Comp Metabolic Usv836 A/G Ratio 1.5 Ratio 11/14/2016 Comp Metabolic Dye470 Osmo 279 mOsmo 11/14/2016 Free T4 Lil486 FREE T4 0.86 ng/dL 11/14/2016 Lipid Ord30 CHOL 164 mg/dL 11/14/2016 Lipid Ord30 HDL 49.0 mg/dl 11/14/2016 Lipid Ord30 TRIG 130 mg/dL 11/14/2016 Lipid Ord30 LDL 89 mg/dL 11/14/2016 Lipid Ord30 C/HDL 3.3 Ratio 11/14/2016 Total T3 Ord42 TT3 1.32 ng/ml 11/14/2016 %Hba1C Mpp720 % HbA1c 25092-1 7.0 % 11/14/2016 %Hba1C Rjd569 Gluc Ave 154 mg/dL 11/14/2016 Comp Metabolic Ypv501 NA 136 mEq/L 07/24/2016 Comp Metabolic Dri550 K 4.1 mEq/L 07/24/2016 Comp Metabolic Zfy987 CL 102 mEq/L 07/24/2016 Comp Metabolic Jdh426 CO2 28.0 mEq/L 07/24/2016 Comp Metabolic Wvf877 ANION GAP 10 07/24/2016 Comp Metabolic Oky998 GLUCOSE 211 mg/dL 07/24/2016 Comp Metabolic Uxk670 Creat 0.7 mg/dL 07/24/2016 Comp Metabolic Ctm448 eGFR 95 ml/min/1.73m2 07/24/2016 Comp Metabolic Dgk935 BUN 14 mg/dL 07/24/2016 Comp Metabolic Wjn940 B/C Ratio 21.2 Ratio 07/24/2016 Comp Metabolic Zyh927 CALCIUM 9.5 mg/dL 07/24/2016 Comp Metabolic Awb930 ALK PHOS 93 U/L 07/24/2016 Comp Metabolic Hsh158 AST(SGOT) 17 U/L 07/24/2016 Comp Metabolic Bmm807 ALT(SGPT) 40 U/L 07/24/2016 Comp Metabolic Qqj914 BILI T 0.3 mg/dL 07/24/2016 Comp Metabolic Bmt684 ALBUMIN 4.2 g/dL 07/24/2016 Comp Metabolic Iqo347 TPRO 7.2 g/dL 07/24/2016 Comp Metabolic Xnx973 GLOB 3.0 g/dL 07/24/2016 Comp Metabolic Jmx914 A/G Ratio 1.4 Ratio 07/24/2016 Comp Metabolic Fjc669 Osmo 279 mOsmo 07/24/2016 Tsh Ord6 hTSH II 0.44 uIU/mL 07/24/2016 %Hba1C Omu219 % HbA1c 77426-5 7.1 % 07/24/2016 %Hba1C Gue149 Gluc Ave 157 mg/dL 07/24/2016 Cbc With Differential Ord2 WBC 6.23 K/ul 07/24/2016 Cbc With Differential Ord2 RBC 5.02 M/ul 07/24/2016 Cbc With Differential Ord2 HGB 14.6 g/dl 07/24/2016 Cbc With Differential Ord2 HCT 44.2 % 07/24/2016 Cbc With Differential Ord2 Neut% 49.9 % 07/24/2016 Cbc With Differential Ord2 Lymph% 33.9 % 07/24/2016 Cbc With Differential Ord2 MCV 88.0 fl 07/24/2016 Cbc With Differential Ord2 MCH 29.1 pg 07/24/2016 Cbc With Differential Ord2 [place]% 7.7 % 07/24/2016 Cbc With Differential Ord2 Eos% 7.5 % 07/24/2016 Cbc With Differential Ord2 MCHC 33.0 pg 07/24/2016 Cbc With Differential Ord2 PLT 261 K/ul 07/24/2016 Cbc With Differential Ord2 Baso% 1.0 % 07/24/2016 Cbc With Differential Ord2 Neut ABS# 3.11 K/ul 07/24/2016 Cbc With Differential Ord2 RDW 13.6 % 07/24/2016 Cbc With Differential Ord2 Lymph ABS# 2.11 K/ul 07/24/2016 Cbc With Differential Ord2 [place] ABS# 0.5 K/ul 07/24/2016 Cbc With Differential Ord2 Eos ABS# 0.5 K/ul 07/24/2016 Cbc With Differential Ord2 Baso ABS# 0.1 K/ul 07/24/2016 Review of Systems System Result Effective Dates Constitutional No recent illness 2018 Constitutional No chills 12/02/2018 Constitutional No diaphoresis 12/02/2018 Constitutional No fever 12/02/2018 Eyes No eye erythema 12/02/2018 Ears/Nose/Throat/Neck No nasal discharge 12/02/2018 Cardiovascular No chest pain/pressure 08/2019 Respiratory No cough 12/02/2018 Respiratory No chest congestion 2018 Gastrointestinal abdominal pain 2018 Gastrointestinal No constipation 2018 Gastrointestinal No diarrhea 12/02/2018 Gastrointestinal No vomiting 12/02/2018 Gastrointestinal No nausea 12/02/2018 Gastrointestinal No melena 12/02/2018 Gastrointestinal No hematochezia 2018 Genitourinary/Nephrology flank pain 12/02 Genitourinary/Nephrology No dysuria 12/02 Genitourinary/Nephrology No hematuria 08/2019 Musculoskeletal back pain 12/02/2018 Dermatologic No rash 12/02/2018 Neurologic No alteration of consciousness 12/02/2018 Neurologic No mental status change 2018 Constitutional No recent illness 2017 Constitutional No anorexia 08/23/2018 Constitutional No night sweats 2017 Constitutional No chills 08/23/2018 Constitutional No diaphoresis 08/23/2018 Constitutional No fatigue 08/23/2018 Constitutional No fever 08/23/2018 Constitutional No insomnia 08/23/2018 Constitutional No malaise 08/23/2018 Constitutional No weight loss 08/23/2018 Constitutional No weight gain 08/23/2018 Dermatologic rash 08/23/2018 Constitutional No recent illness 2017 Constitutional No chills 02/26/2018 Constitutional No diaphoresis 02/26/2018 Constitutional No fever 02/26/2018 Eyes No eye erythema 02/26/2018 Ears/Nose/Throat/Neck No nasal discharge 02/26/2018 Cardiovascular No chest pain/pressure 04/2018 Cardiovascular No dyspnea 02/26/2018 Respiratory No cough 02/26/2018 Respiratory No dyspnea 02/26/2018 Neurologic No alteration of consciousness 02/26/2018 Neurologic No mental status change 2017 Constitutional No recent illness 2017 Constitutional No anorexia 12/15/2017 Constitutional No night sweats 2017 Constitutional No chills 12/15/2017 Constitutional No diaphoresis 12/15/2017 Constitutional No fatigue 12/15/2017 Constitutional No fever 12/15/2017 Constitutional No insomnia 12/15/2017 Constitutional No malaise 12/15/2017 Constitutional No weight loss 12/15/2017 Constitutional No weight gain 12/15/2017 Eyes No eye discharge 12/15/2017 Eyes No eye erythema 12/15/2017 Ears/Nose/Throat/Neck No dizziness 2017 Ears/Nose/Throat/Neck No headache 2017 Ears/Nose/Throat/Neck nasal allergies Cardiovascular No chest pain/pressure Cardiovascular No dyspnea 12/15/2017 Cardiovascular No edema 12/15/2017 Respiratory No productive sputum 2017 Respiratory No chest congestion 2017 Respiratory No cigarette smoking 2017 Respiratory No cough 12/15/2017 Gastrointestinal No hemorrhoids 2017 Gastrointestinal No constipation 2017 Gastrointestinal No diarrhea 12/15/2017 Genitourinary/Nephrology No dysuria 12/15 Musculoskeletal joint complaint 2017 Dermatologic No rash 12/15/2017 Dermatologic No sores 12/15/2017 Neurologic No alteration of consciousness 12/15/2017 Psychiatric No anxiety 12/15/2017 Psychiatric No depression 12/15/2017 Endocrine No dry or coarse skin 2017 Hematologic/Lymphatic No abnormal bleeding and bruising 12/15/2017 Constitutional No recent illness 2016 Constitutional No anorexia 08/10/2017 Constitutional No night sweats 2016 Constitutional No chills 08/10/2017 Constitutional No diaphoresis 08/10/2017 Constitutional No fatigue 08/10/2017 Constitutional No fever 08/10/2017 Constitutional No insomnia 08/10/2017 Constitutional No malaise 08/10/2017 Eyes No eye discharge 08/10/2017 Eyes No eye erythema 08/10/2017 Ears/Nose/Throat/Neck No dizziness 2016 Ears/Nose/Throat/Neck No headache 2016 Ears/Nose/Throat/Neck nasal allergies Cardiovascular No chest pain/pressure Cardiovascular No dyspnea 08/10/2017 Cardiovascular No edema 08/10/2017 Respiratory No productive sputum 2016 Respiratory No chest congestion 2016 Respiratory No cigarette smoking 2016 Respiratory No cough 08/10/2017 Gastrointestinal No constipation 2016 Gastrointestinal No diarrhea 08/10/2017 Genitourinary/Nephrology No dysuria 08/10 Musculoskeletal joint complaint 2016 Dermatologic No rash 08/10/2017 Dermatologic No sores 08/10/2017 Psychiatric No anxiety 08/10/2017 Psychiatric No depression 08/10/2017 Gastrointestinal dysphagia 08/10/2017 Genitourinary/Nephrology No breast complaint 08/10/2017 Endocrine diabetes mellitus type 2 2016 Constitutional No recent illness 2016 Constitutional No chills 02/20/2017 Constitutional No diaphoresis 02/20/2017 Constitutional No fever 02/20/2017 Eyes No eye erythema 02/20/2017 Ears/Nose/Throat/Neck No nasal allergies 02/20/2017 Ears/Nose/Throat/Neck No nasal discharge 02/20/2017 Cardiovascular No chest pain/pressure Respiratory No cough 02/20/2017 Respiratory No dyspnea 02/20/2017 Gastrointestinal No abdominal pain 2016 Neurologic No alteration of consciousness 02/20/2017 Neurologic No mental status change 2016 Constitutional No recent illness 2016 Constitutional No anorexia 02/10/2017 Constitutional No night sweats 2016 Constitutional No chills 02/10/2017 Constitutional No diaphoresis 02/10/2017 Constitutional No fatigue 02/10/2017 Constitutional No fever 02/10/2017 Constitutional No insomnia 02/10/2017 Constitutional No malaise 02/10/2017 Eyes No eye discharge 02/10/2017 Eyes No eye erythema 02/10/2017 Ears/Nose/Throat/Neck No dizziness 2016 Ears/Nose/Throat/Neck No headache 2016 Ears/Nose/Throat/Neck nasal allergies Cardiovascular No chest pain/pressure Cardiovascular No dyspnea 02/10/2017 Cardiovascular No edema 02/10/2017 Respiratory No productive sputum 2016 Respiratory No chest congestion 2016 Respiratory No cigarette smoking 2016 Respiratory No cough 02/10/2017 Gastrointestinal No hemorrhoids 2016 Gastrointestinal No constipation 2016 Gastrointestinal No diarrhea 02/10/2017 Genitourinary/Nephrology No dysuria 02/10 Musculoskeletal joint complaint 2016 Dermatologic No rash 02/10/2017 Dermatologic No sores 02/10/2017 Neurologic No alteration of consciousness 02/10/2017 Psychiatric No anxiety 02/10/2017 Psychiatric No depression 02/10/2017 Genitourinary/Nephrology breast complaint 02/10/2017 Constitutional No recent illness 2015 Constitutional No anorexia 07/24/2016 Constitutional No night sweats 2015 Constitutional No chills 07/24/2016 Constitutional No diaphoresis 07/24/2016 Constitutional No fatigue 07/24/2016 Constitutional No fever 07/24/2016 Constitutional No insomnia 07/24/2016 Constitutional No malaise 07/24/2016 Constitutional No weight loss 07/24/2016 Constitutional No weight gain 07/24/2016 Eyes No eye erythema 07/24/2016 Eyes No eye discharge 07/24/2016 Ears/Nose/Throat/Neck No dizziness 2015 Ears/Nose/Throat/Neck No headache 2015 Ears/Nose/Throat/Neck nasal allergies 11/2015 Cardiovascular No chest pain/pressure 11/2015 Cardiovascular No dyspnea 07/24/2016 Cardiovascular No edema 07/24/2016 Respiratory No productive sputum 2015 Respiratory No chest congestion 2015 Respiratory No cough 07/24/2016 Respiratory No cigarette smoking 2015 Gastrointestinal No hemorrhoids 2015 Gastrointestinal No diarrhea 07/24/2016 Gastrointestinal No constipation 2015 Genitourinary/Nephrology No dysuria 07/24 Musculoskeletal joint complaint 2015 Dermatologic No rash 07/24/2016 Dermatologic No sores 07/24/2016 Neurologic No alteration of consciousness 07/24/2016 Psychiatric No depression 07/24/2016 Psychiatric No anxiety 07/24/2016 Endocrine No dry or coarse skin 2015 Hematologic/Lymphatic No abnormal bleeding and bruising 07/24/2016 Physical Exam Exam Name System Name Item Name Status Result Effective Dates Notes Full Exam - General 1994 Constitutional general appearance Overall: well developed 12/02/2018 None Full Exam - General 1994 Constitutional general appearance Overall: in no acute distress 12/02/2018 None Full Exam - General 1994 Constitutional general appearance Overall: well nourished 12/02/2018 None Full Exam - General 1994 Eyes conjunctiva /eyelids Overall: eyelids normal 12/02/2018 None Full Exam - General 1994 Eyes conjunctiva /eyelids Overall: cornea clear 12/02/2018 None Full Exam - General 1994 Eyes conjunctiva /eyelids Overall: conjunctiva clear 12/02/2018 None Full Exam - General 1994 Ears/Nose/Throat lips/teeth/gingiva Overall: benign lips 12/02/2018 None Full Exam - General 1994 Ears/Nose/Throat oral cavity/pharynx/larynx Overall: oral mucosa clear 12/02/2018 None Full Exam - General 1994 Respiratory respiratory effort/rhythm Overall: normal rate 12/02/2018 None Full Exam - General 1994 Respiratory respiratory effort/rhythm Overall: no retractions 12/02/2018 None Full Exam - General 1994 Respiratory auscultation Overall: breath sounds clear bilaterally 12/02/2018 None Full Exam - General 1994 Cardiovascular auscultation of heart Overall: regular rate 12/02/2018 None Full Exam - General 1994 Cardiovascular auscultation of heart Overall: normal heart sounds 12/02/2018 None Full Exam - General 1994 Abdomen abdominal exam Overall: normal bowel sounds 12/02/2018 None Full Exam - General 1994 Abdomen abdominal exam Lower quadrant: tender to palpation 12/02/2018 None Full Exam - General 1994 Abdomen abdominal exam Lower quadrant: dull pain 12/02/2018 None Full Exam - General 1994 Abdomen abdominal exam Lower quadrant: no guarding 12/02/2018 None Full Exam - General 1994 Abdomen abdominal exam Lower quadrant: no rebound tenderness 12/02/2018 None Full Exam - General 1994 Abdomen abdominal exam Lower quadrant: soft 12/02/2018 None Full Exam - General 1994 Abdomen abdominal exam Upper quadrant: tender to palpation 12/02/2018 None Full Exam - General 1994 Abdomen abdominal exam Upper quadrant: dull pain 12/02/2018 None Full Exam - General 1994 Abdomen abdominal exam Upper quadrant: no guarding 12/02/2018 None Full Exam - General 1994 Abdomen abdominal exam Upper quadrant: no rebound tenderness 12/02/2018 None Full Exam - General 1994 Abdomen abdominal exam Upper quadrant: soft 12/02/2018 None Full Exam - General 1994 Musculoskeletal head and neck Overall: head atraumatic 12/02/2018 None Full Exam - General 1994 Musculoskeletal gait and station Overall: normal station 12/02/2018 None Full Exam - General 1994 Musculoskeletal gait and station Overall: normal gait 12/02/2018 None Full Exam - General 1994 Neurologic cranial nerves Overall: crainial nerves 2 - 12 grossly intact 12/02/2018 None Full Exam - General 1994 Psychiatric orientation/consciousness Overall: oriented to person, place and time 12/02/2018 None Full Exam - General 1994 Psychiatric mood and affect Overall: normal mood and affect 12/02/2018 None Full Exam - General 1994 Psychiatric appearance Overall: well-groomed, good eye contact 12/02/2018 None Full Exam - Dermatology Constitutional general appearance Overall: well nourished 08/23/2018 None Full Exam - Dermatology Constitutional general appearance Overall: well developed 08/23/2018 None Full Exam - Dermatology Constitutional general appearance Overall: in no acute distress 08/23/2018 None Full Exam - Dermatology Constitutional general appearance Overall: of normal body habitus 08/23/2018 None Full Exam - Dermatology Constitutional general appearance Overall: well groomed 08/23/2018 None Full Exam - Dermatology Psychiatric orientation Overall: oriented to person, place and time 08/23/2018 None Full Exam - Dermatology Integument insp & palp - left upper extremity Lesion: patch 08/23/2018 None Full Exam - Dermatology Integument insp & palp - left upper extremity Location: on the palm 08/23/2018 None Full Exam - Dermatology Integument insp & palp - right upper extremity Location: on the palm 08/23/2018 None Full Exam - Dermatology Integument insp & palp - right upper extremity Lesion: patch 08/23/2018 None Full Exam - Dermatology Integument insp & palp - right lower extremity Location: on the foot 08/23/2018 None Full Exam - Dermatology Integument insp & palp - right lower extremity Lesion: patch 08/23/2018 None Full Exam - General 1994 Constitutional general appearance Overall: well developed 02/26/2018 None Full Exam - General 1994 Constitutional general appearance Overall: in no acute distress 02/26/2018 None Full Exam - General 1994 Constitutional general appearance Overall: well nourished 02/26/2018 None Full Exam - General 1994 Eyes conjunctiva /eyelids Overall: conjunctiva clear 02/26/2018 None Full Exam - General 1994 Eyes conjunctiva /eyelids Overall: eyelids normal 02/26/2018 None Full Exam - General 1994 Ears/Nose/Throat lips/teeth/gingiva Overall: benign lips 02/26/2018 None Full Exam - General 1994 Respiratory respiratory effort/rhythm Overall: no retractions 02/26/2018 None Full Exam - General 1994 Respiratory respiratory effort/rhythm Overall: normal rate 02/26/2018 None Full Exam - General 1994 Musculoskeletal head and neck Overall: head atraumatic 02/26/2018 None Full Exam - General 1994 Neurologic cranial nerves Overall: crainial nerves 2 - 12 grossly intact 02/26/2018 None Full Exam - General 1994 Psychiatric orientation/consciousness Overall: oriented to person, place and time 02/26/2018 None Full Exam - General 1994 Psychiatric mood and affect Overall: normal mood and affect 02/26/2018 None Full Exam - General 1994 Psychiatric appearance Overall: well-groomed, good eye contact 02/26/2018 None Full Exam - General 1994 Constitutional general appearance Overall: well developed 12/15/2017 None Full Exam - General 1994 Constitutional general appearance Overall: in no acute distress 12/15/2017 None Full Exam - General 1994 Constitutional general appearance Overall: well nourished 12/15/2017 None Full Exam - General 1994 Eyes conjunctiva /eyelids Overall: conjunctiva clear 12/15/2017 None Full Exam - General 1994 Eyes pupils and irises Overall: pupils equal, round, reactive to light and accomodation 12/15/2017 None Full Exam - General 1994 Ears/Nose/Throat otoscopic exam Overall: external auditory canals clear 12/15/2017 None Full Exam - General 1994 Ears/Nose/Throat otoscopic exam Overall: tympanic membranes clear 12/15/2017 None Full Exam - General 1994 Ears/Nose/Throat oral cavity/pharynx/larynx Overall: oral mucosa clear 12/15/2017 None Full Exam - General 1994 Respiratory auscultation Overall: breath sounds clear bilaterally 12/15/2017 None Full Exam - General 1994 Respiratory respiratory effort/rhythm Overall: no retractions 12/15/2017 None Full Exam - General 1994 Respiratory respiratory effort/rhythm Overall: normal rate 12/15/2017 None Full Exam - General 1994 Cardiovascular extremities Overall: no clubbing 12/15/2017 None Full Exam - General 1994 Cardiovascular auscultation of heart Overall: regular rate 12/15/2017 None Full Exam - General 1994 Cardiovascular auscultation of heart Overall: normal heart sounds 12/15/2017 None Full Exam - General 1994 Cardiovascular auscultation of heart Overall: no murmurs 12/15/2017 None Full Exam - General 1994 Abdomen abdominal exam Overall: no tenderness 12/15/2017 None Full Exam - General 1994 Abdomen abdominal exam Overall: normal bowel sounds 12/15/2017 None Full Exam - General 1994 Abdomen abdominal exam Contour: rounded 12/15/2017 None Full Exam - General 1994 Lymphatic neck nodes Overall: anterior cervical chain benign 12/15/2017 None Full Exam - General 1994 Lymphatic neck nodes Overall: posterior cervical chain benign 12/15/2017 None Full Exam - General 1994 Musculoskeletal head and neck Deformities: head tilt 12/15/2017 [email or web address] Full Exam - General 1994 Integument inspection of skin Overall: few scattered moles, no gross abnormalities 12/15/2017 None Full Exam - General 1994 Neurologic cranial nerves Overall: crainial nerves 2 - 12 grossly intact 12/15/2017 None Full Exam - General 1994 Psychiatric orientation/consciousness Overall: oriented to person, place and time 12/15/2017 None Full Exam - General 1994 Constitutional general appearance Overall: well developed 08/10/2017 None Full Exam - General 1994 Constitutional general appearance Overall: in no acute distress 08/10/2017 None Full Exam - General 1994 Constitutional general appearance Overall: well nourished 08/10/2017 None Full Exam - General 1994 Eyes conjunctiva /eyelids Overall: conjunctiva clear 08/10/2017 None Full Exam - General 1994 Eyes pupils and irises Overall: pupils equal, round, reactive to light and accomodation 08/10/2017 None Full Exam - General 1994 Ears/Nose/Throat otoscopic exam Overall: external auditory canals clear 08/10/2017 None Full Exam - General 1994 Ears/Nose/Throat otoscopic exam Overall: tympanic membranes clear 08/10/2017 None Full Exam - General 1994 Ears/Nose/Throat oral cavity/pharynx/larynx Overall: oral mucosa clear 08/10/2017 None Full Exam - General 1994 Respiratory auscultation Overall: breath sounds clear bilaterally 08/10/2017 None Full Exam - General 1994 Respiratory respiratory effort/rhythm Overall: no retractions 08/10/2017 None Full Exam - General 1994 Respiratory respiratory effort/rhythm Overall: normal rate 08/10/2017 None Full Exam - General 1994 Cardiovascular extremities Overall: no clubbing 08/10/2017 None Full Exam - General 1994 Cardiovascular auscultation of heart Overall: regular rate 08/10/2017 None Full Exam - General 1994 Cardiovascular auscultation of heart Overall: normal heart sounds 08/10/2017 None Full Exam - General 1994 Cardiovascular auscultation of heart Overall: no murmurs 08/10/2017 None Full Exam - General 1994 Abdomen abdominal exam Overall: no tenderness 08/10/2017 None Full Exam - General 1994 Abdomen abdominal exam Overall: normal bowel sounds 08/10/2017 None Full Exam - General 1994 Abdomen abdominal exam Contour: rounded 08/10/2017 None Full Exam - General 1994 Lymphatic neck nodes Overall: anterior cervical chain benign 08/10/2017 None Full Exam - General 1994 Lymphatic neck nodes Overall: posterior cervical chain benign 08/10/2017 None Full Exam - General 1994 Musculoskeletal head and neck Deformities: head tilt 08/10/2017 [email or web address] Full Exam - General 1994 Psychiatric orientation/consciousness Overall: oriented to person, place and time 08/10/2017 None Full Exam - General 1994 Constitutional general appearance Overall: well developed 02/20/2017 None Full Exam - General 1994 Constitutional general appearance Overall: in no acute distress 02/20/2017 None Full Exam - General 1994 Constitutional general appearance Overall: well nourished 02/20/2017 None Full Exam - General 1994 Eyes conjunctiva /eyelids Overall: conjunctiva clear 02/20/2017 None Full Exam - General 1994 Eyes conjunctiva /eyelids Overall: eyelids normal 02/20/2017 None Full Exam - General 1994 Ears/Nose/Throat lips/teeth/gingiva Overall: benign lips 02/20/2017 None Full Exam - General 1994 Ears/Nose/Throat oral cavity/pharynx/larynx Overall: oral mucosa clear 02/20/2017 None Full Exam - General 1994 Respiratory auscultation Overall: breath sounds clear bilaterally 02/20/2017 None Full Exam - General 1994 Respiratory respiratory effort/rhythm Overall: no retractions 02/20/2017 None Full Exam - General 1994 Respiratory respiratory effort/rhythm Overall: normal rate 02/20/2017 None Full Exam - General 1994 Cardiovascular auscultation of heart Overall: regular rate 02/20/2017 None Full Exam - General 1994 Cardiovascular auscultation of heart Overall: normal heart sounds 02/20/2017 None Full Exam - General 1994 Musculoskeletal head and neck Overall: head atraumatic 02/20/2017 None Full Exam - General 1994 Psychiatric orientation/consciousness Overall: oriented to person, place and time 02/20/2017 None Full Exam - General 1994 Psychiatric mood and affect Overall: normal mood and affect 02/20/2017 None Full Exam - General 1994 Psychiatric appearance Overall: well-groomed, good eye contact 02/20/2017 None Full Exam - General 1994 Constitutional general appearance Overall: well developed 02/10/2017 None Full Exam - General 1994 Constitutional general appearance Overall: in no acute distress 02/10/2017 None Full Exam - General 1994 Constitutional general appearance Overall: well nourished 02/10/2017 None Full Exam - General 1994 Eyes conjunctiva /eyelids Overall: conjunctiva clear 02/10/2017 None Full Exam - General 1994 Eyes pupils and irises Overall: pupils equal, round, reactive to light and accomodation 02/10/2017 None Full Exam - General 1994 Ears/Nose/Throat otoscopic exam Overall: external auditory canals clear 02/10/2017 None Full Exam - General 1994 Ears/Nose/Throat otoscopic exam Overall: tympanic membranes clear 02/10/2017 None Full Exam - General 1994 Ears/Nose/Throat oral cavity/pharynx/larynx Overall: oral mucosa clear 02/10/2017 None Full Exam - General 1994 Respiratory auscultation Overall: breath sounds clear bilaterally 02/10/2017 None Full Exam - General 1994 Respiratory respiratory effort/rhythm Overall: no retractions 02/10/2017 None Full Exam - General 1994 Respiratory respiratory effort/rhythm Overall: normal rate 02/10/2017 None Full Exam - General 1994 Cardiovascular extremities Overall: no clubbing 02/10/2017 None Full Exam - General 1994 Cardiovascular auscultation of heart Overall: regular rate 02/10/2017 None Full Exam - General 1994 Cardiovascular auscultation of heart Overall: normal heart sounds 02/10/2017 None Full Exam - General 1994 Cardiovascular auscultation of heart Overall: no murmurs 02/10/2017 None Full Exam - General 1994 Abdomen abdominal exam Overall: no tenderness 02/10/2017 None Full Exam - General 1994 Abdomen abdominal exam Overall: normal bowel sounds 02/10/2017 None Full Exam - General 1994 Abdomen abdominal exam Contour: rounded 02/10/2017 None Full Exam - General 1994 Lymphatic neck nodes Overall: anterior cervical chain benign 02/10/2017 None Full Exam - General 1994 Lymphatic neck nodes Overall: posterior cervical chain benign 02/10/2017 None Full Exam - General 1994 Musculoskeletal head and neck Deformities: head tilt 02/10/2017 [email or web address] Full Exam - General 1994 Integument inspection of skin Overall: few scattered moles, no gross abnormalities 02/10/2017 None Full Exam - General 1994 Neurologic cranial nerves Overall: crainial nerves 2 - 12 grossly intact 02/10/2017 None Full Exam - General 1994 Psychiatric orientation/consciousness Overall: oriented to person, place and time 02/10/2017 None Full Exam - General 1994 Chest/Breast breast and axillae palpation Lower outer quadrant: mass present 02/10/2017 None Full Exam - General 1994 Chest/Breast breast and axillae palpation Lower outer quadrant: tender 02/10/2017 None Full Exam - General 1994 Constitutional general appearance Overall: well developed 07/24/2016 None Full Exam - General 1994 Constitutional general appearance Overall: in no acute distress 07/24/2016 None Full Exam - General 1994 Constitutional general appearance Overall: well nourished 07/24/2016 None Full Exam - General 1994 Psychiatric orientation/consciousness Overall: oriented to person, place and time 07/24/2016 None Full Exam - General 1994 Neurologic cranial nerves Overall: crainial nerves 2 - 12 grossly intact 07/24/2016 None Full Exam - General 1994 Integument inspection of skin Overall: few scattered moles, no gross abnormalities 07/24/2016 None Full Exam - General 1994 Musculoskeletal head and neck Deformities: head tilt 07/24/2016 [email or web address] Full Exam - General 1994 Lymphatic neck nodes Overall: anterior cervical chain benign 07/24/2016 None Full Exam - General 1994 Lymphatic neck nodes Overall: posterior cervical chain benign 07/24/2016 None Full Exam - General 1994 Abdomen abdominal exam Overall: no tenderness 07/24/2016 None Full Exam - General 1994 Abdomen abdominal exam Overall: normal bowel sounds 07/24/2016 None Full Exam - General 1994 Abdomen abdominal exam Contour: rounded 07/24/2016 None Full Exam - General 1994 Cardiovascular auscultation of heart Overall: regular rate 07/24/2016 None Full Exam - General 1994 Cardiovascular auscultation of heart Overall: normal heart sounds 07/24/2016 None Full Exam - General 1994 Cardiovascular auscultation of heart Overall: no murmurs 07/24/2016 None Full Exam - General 1994 Cardiovascular extremities Overall: no clubbing 07/24/2016 None Full Exam - General 1994 Respiratory auscultation Overall: breath sounds clear bilaterally 07/24/2016 None Full Exam - General 1994 Respiratory respiratory effort/rhythm Overall: no retractions 07/24/2016 None Full Exam - General 1994 Respiratory respiratory effort/rhythm Overall: normal rate 07/24/2016 None Full Exam - General 1994 Ears/Nose/Throat otoscopic exam Overall: external auditory canals clear 07/24/2016 None Full Exam - General 1994 Ears/Nose/Throat otoscopic exam Overall: tympanic membranes clear 07/24/2016 None Full Exam - General 1994 Ears/Nose/Throat oral cavity/pharynx/larynx Overall: oral mucosa clear 07/24/2016 None Full Exam - General 1994 Eyes conjunctiva /eyelids Overall: conjunctiva clear 07/24/2016 None Full Exam - General 1994 Eyes pupils and irises Overall: pupils equal, round, reactive to light and accomodation 07/24/2016 None Procedures Procedure Codes Date PPPS, SUBSEQ VISIT CPT -4: G0439 02/26/2018 PPPS, SUBSEQ VISIT CPT -4: G0439 02/20/2017 Vital Signs Date Vital 12/02/2018 Blood Pressure 1: 132/74 Code : 8480-6 BMI: 32.0 Code : 32687-8 Heart Rate 1 : 97 bpm Height: 5' SpO2: 97% Weight: 164 lbs 08/23/2018 Blood Pressure 1: 130/78 Code : 8480-6 BMI: 31.1 Code : 10233-8 Heart Rate 1 : 95 bpm Height: 5' SpO2: 98% Weight: 159 lbs 02/26/2018 Blood Pressure 1: 124/80 Code : 8480-6 BMI: 31.6 Code : 32037-6 Heart Rate 1 : 89 bpm Height: 5' SpO2: 95% Waist Measure (cm): 102 cm Weight: 162 lbs 12/15/2017 Blood Pressure 1: 122/76 Code : 8480-6 BMI: 32.2 Code : 22120-2 Heart Rate 1 : 90 bpm Height: 5' SpO2: 97% Weight: 165 lbs 08/10/2017 Blood Pressure 1: 116/72 Code : 8480-6 BMI: 31.4 Code : 42907-6 Heart Rate 1 : 95 bpm Height: 5' SpO2: 96% Weight: 161 lbs 02/20/2017 Blood Pressure 1: 134/76 Code : 8480-6 BMI: 31.1 Code : 50331-2 Heart Rate 1 : 90 bpm Height: 5' SpO2: 93% Waist Measure (cm): 91 cm Weight: 159 lbs 02/10/2017 Blood Pressure 1: 132/80 Code : 8480-6 BMI: 31.1 Code : 84878-4 Heart Rate 1 : 93 bpm Height: 5' SpO2: 96% Weight: 159 lbs 07/24/2016 Blood Pressure 1: 130/72 Code : 8480-6 BMI: 32.6 Code : 60244-1 Heart Rate 1 : 86 bpm Height: 5' SpO2: 96% Weight: 167 lbs Functional Status No Functional Status data History of Present Illness Symptom Name Status Result Effective Date Notes Location in the RUQ 12/02/2018 None Radiating the flank 12/02/2018 None Radiating the back None Quality aching 2018 None Quality constant 08/2019 None Quality sharp 2018 None Quality worsening 08/2019 None Onset and Resolution sudden in onset 12/02/2018 None Onset of Symptom 1 months ago 12/02/2018 None Limitation on Activities moderately limits activities 12/02/2018 None rash Location-Major on the hands 08/23/2018 None rash Location-Major on the feet 08/23/2018 None rash Location-Extremities on both palms 08/23/2018 None rash Location-Extremities on both soles 08/23/2018 None rash Quality acute 11/2017 None rash Quality flaking 08/23/2018 None rash Quality pruritic 08/23/2018 None rash Onset and Resolution sudden in onset 08/23/2018 None rash Onset of Symptom 1 month ago 08/23/2018 None rash Triggers no known triggers 08/23/2018 None rash Pertinent Findings Denies tenderness 08/23/2018 None rash Prior Treatments unresponsive to treatment 08/23/2018 None Annual Medicare Wellness Exam Alcohol Use does not drink any alcohol 02/26/2018 None Annual Medicare Wellness Exam Aspirin Use no 02/26/2018 None Annual Medicare Wellness Exam Blood Glucose (self reported) has a diagnosis of diabetes 02/26/2018 None Annual Medicare Wellness Exam Blood Pressure (self reported ) low / normal (120/80) 02/26/2018 None Annual Medicare Wellness Exam Cholesterol (self reported) desireable (below 200) 02/26/2018 None Annual Medicare Wellness Exam Hemaglobin A-1C (self reported ) borderline high (7) 02/26/2018 None Annual Medicare Wellness Exam Depression (last 6 months) almost never 02/26/2018 None Annual Medicare Wellness Exam Depression or Hopelessness almost never 02/26/2018 None Annual Medicare Wellness Exam Describe Your Health good 02/26/2018 None Annual Medicare Wellness Exam Exercise Habits exercises 5 days per week 02/26/2018 None Annual Medicare Wellness Exam Exercise Habits exercises 30 minutes per day 02/26/2018 None Annual Medicare Wellness Exam Handling Stress usually neda effectively 02/26/2018 None Annual Medicare Wellness Exam Hours of Sleep 8 02/26/2018 None Annual Medicare Wellness Exam Interaction with Friends no 02/26/2018 None Annual Medicare Wellness Exam Interests & Pleasure almost never 02/26/2018 None Annual Medicare Wellness Exam Life Satisfaction very satisfied 02/26/2018 None Annual Medicare Wellness Exam Motor Vehicle Safety always fastens seat belt: most of the time 2017 None Annual Medicare Wellness Exam Motor Vehicle Safety drives after drinking: no 02/26/2018 None Annual Medicare Wellness Exam Motor Vehicle Safety rides with someone who has been drinking: no 02/26 None Annual Medicare Wellness Exam Nutrition servings of fried food / high fat foods per day: 0 2017 None Annual Medicare Wellness Exam Nutrition servings of high fiber / whole grain per day: 2 02/26/2018 None Annual Medicare Wellness Exam Nutrition servings of vegetables / fruit per day: 1 02/26/2018 None Annual Medicare Wellness Exam Smoking and Tobacco Use non smoker 02/26/2018 None Annual Medicare Wellness Exam Social & Emotional Support always 02/26/2018 None Annual Medicare Wellness Exam Stress almost never 02/26/2018 None Annual Medicare Wellness Exam Sun Exposure protects skin when outdoors: no 02/26/2018 None diabetes mellitus Onset of Symptom onset as an adult 12/15/2017 None diabetes mellitus Quality NIDDM 12/15/2017 None diabetes mellitus Severity mild 12/15/2017 None diabetes mellitus Alleviating Factors medication 12/15/2017 None diabetes mellitus Exacerbating Factors diet 12/15/2017 None diabetes mellitus Nutrition ADA diet 12/15/2017 None diabetes mellitus Pertinent Findings Denies dizziness 12/15/2017 None diabetes mellitus Pertinent Findings Denies dyspnea 12/15/2017 None diabetes mellitus Pertinent Findings Denies nausea 12/15/2017 None diabetes mellitus Onset of Symptom onset as an adult 08/10/2017 None diabetes mellitus Quality NIDDM 08/10/2017 None diabetes mellitus Severity mild 08/10/2017 None diabetes mellitus Alleviating Factors medication 08/10/2017 None diabetes mellitus Exacerbating Factors diet 08/10/2017 None diabetes mellitus Nutrition ADA diet 08/10/2017 None diabetes mellitus Pertinent Findings Denies dizziness 08/10/2017 None diabetes mellitus Pertinent Findings Denies dyspnea 08/10/2017 None diabetes mellitus Pertinent Findings Denies nausea 08/10/2017 None diabetes mellitus Test results Pt checking blood glucose readings, did not bring results to clinic 08/10/2017 None diabetes mellitus Glucose monitoring daily 08/10/2017 None dysphagia Location in the epigastric area 08/10/2017 None dysphagia Quality chronic 08/10/2017 None dysphagia Quality difficulty with hard solids 08/10/2017 -meats in particular dysphagia Quality intermittent 08/10/2017 None dysphagia Quality worsening 08/10/2017 None dysphagia Onset and Resolution ongoing 08/10/2017 None dysphagia Onset of Symptom 3-4 months ago 08/10/2017 None dysphagia Limitation on Activities limits oral intake 08/10/2017 None dysphagia Frequency of Episodes daily 08/10/2017 None dysphagia Frequency of Episodes increasing 08/10/2017 None dysphagia Triggers meals 08/10/2017 None Annual Medicare Wellness Exam Alcohol Use does not drink any alcohol 02/20/2017 None Annual Medicare Wellness Exam Aspirin Use no 02/20/2017 None Annual Medicare Wellness Exam Blood Glucose (self reported) high (126 or higher) 02/20/2017 None Annual Medicare Wellness Exam Blood Pressure (self reported ) don't know 02/20/2017 None Annual Medicare Wellness Exam Cholesterol (self reported) don't know 02/20/2017 None Annual Medicare Wellness Exam Depression (last 6 months) almost never 02/20/2017 None Annual Medicare Wellness Exam Depression or Hopelessness almost never 02/20/2017 None Annual Medicare Wellness Exam Describe Your Health good 02/20/2017 None Annual Medicare Wellness Exam Exercise Habits exercises 7 days per week 02/20/2017 None Annual Medicare Wellness Exam Exercise Habits exercises 30 minutes per day 02/20/2017 None Annual Medicare Wellness Exam Handling Stress usually neda effectively 02/20/2017 None Annual Medicare Wellness Exam Hemaglobin A-1C (self reported ) borderline high (7) 02/20/2017 None Annual Medicare Wellness Exam Hours of Sleep 8 02/20/2017 None Annual Medicare Wellness Exam Interaction with Friends yes 02/20/2017 None Annual Medicare Wellness Exam Interests & Pleasure daily 02/20/2017 None Annual Medicare Wellness Exam Life Satisfaction very satisfied 02/20/2017 None Annual Medicare Wellness Exam Motor Vehicle Safety always fastens seat belt: y 02/20/2017 None Annual Medicare Wellness Exam Motor Vehicle Safety drives after drinking: n 02/20/2017 None Annual Medicare Wellness Exam Motor Vehicle Safety rides with someone who has been drinking: n 2016 None Annual Medicare Wellness Exam Nutrition servings of fried food / high fat foods per day: 0 2016 None Annual Medicare Wellness Exam Nutrition servings of high fiber / whole grain per day: 2 02/20/2017 None Annual Medicare Wellness Exam Nutrition servings of vegetables / fruit per day: 3 02/20/2017 None Annual Medicare Wellness Exam Smoking and Tobacco Use non smoker 02/20/2017 None Annual Medicare Wellness Exam Social & Emotional Support always 02/20/2017 None Annual Medicare Wellness Exam Stress some of the time 02/20/2017 None Annual Medicare Wellness Exam Sun Exposure protects skin when outdoors: y 02/20/2017 None diabetes mellitus Quality NIDDM 02/10/2017 None diabetes mellitus Severity mild 02/10/2017 None diabetes mellitus Alleviating Factors medication 02/10/2017 None diabetes mellitus Nutrition ADA diet 02/10/2017 None diabetes mellitus Pertinent Findings Denies dizziness 02/10/2017 None diabetes mellitus Pertinent Findings Denies dyspnea 02/10/2017 None diabetes mellitus Onset of Symptom onset as an adult 02/10/2017 None diabetes mellitus Test results Pt checking blood glucose readings, did not bring results to clinic 02/10/2017 None diabetes mellitus Glucose monitoring twice daily 02/10/2017 None diabetes mellitus Exacerbating Factors diet 02/10/2017 None diabetes mellitus Pertinent Findings Denies nausea 02/10/2017 None breast complaint Location in the left lower outer quadrant 02/10/2017 None breast complaint Quality mass 02/10/2017 None breast complaint Onset and Resolution ongoing 02/10/2017 None diabetes mellitus Quality NIDDM 07/24/2016 None diabetes mellitus Blood glucose levels greater than 120 07/24/2016 None diabetes mellitus Glucose monitoring twice daily 07/24/2016 None diabetes mellitus Pertinent Findings Denies dizziness 07/24/2016 None diabetes mellitus Pertinent Findings Denies dyspnea 07/24/2016 None diabetes mellitus Pertinent Findings Denies numbness 07/24/2016 None diabetes mellitus Test results HgbA1c level 6.4 07/24/2016 None diabetes mellitus Significant Medications glucagon 07/24/2016 None diabetes mellitus Alleviating Factors medication 07/24/2016 None diabetes mellitus Nutrition ADA diet 07/24/2016 None diabetes mellitus Onset of Symptom onset as an adult 07/24/2016 None diabetes mellitus Severity mild 07/24/2016 None Advance Directives No Advance Directive data Encounters Encounter Performer Location Codes Date EST. PATIENT, LEVEL IV Diagnosis: Right lower quadrant pain[ICD10: R10.31] Ni Benavides MD, [facility] CPT-4: 00257 12/02/2018 ([id number] EST. PATIENT, LEVEL III Diagnosis: Type 2 diabetes mellitus without complications[ICD10: E11.9] Diagnosis: Rash and other nonspecific skin eruption[ICD10: R21] Nadia Benavides MD, [facility] CPT-4: 80735 08/23/2018 [id number] EST. PATIENT, LEVEL III Diagnosis: Type 2 diabetes mellitus without complications[ICD10: E11.9] Diagnosis: Gastro-esophageal reflux disease without esophagitis[ICD10: K21.9] Diagnosis: Primary central sleep apnea[ICD10: G47.31] Krystal Benavides MD, [facility] CPT-4: 90043 12/15/2017 ([id number]) [id number] EST. PATIENT, LEVEL IV Diagnosis: Dysphagia, pharyngeal phase[ICD10: R13.13] Diagnosis: Type 2 diabetes mellitus without complications[ICD10: E11.9] Krystal Benavides MD, [facility] CPT-4: 63704 08/10/2017 ([id number]) [id number] EST. PATIENT, LEVEL IV Diagnosis: Type 2 diabetes mellitus without complications[ICD10: E11.9] Diagnosis: Encounter for screening mammogram for malignant neoplasm of breast[ ICD10: Z12.31] [facility] CPT-4: 00249 02/10/2017 ([id number]) OFFICE VISIT, NEW - LEVEL 3 Diagnosis: Type 2 diabetes mellitus without complications[ICD10: E11.9] Diagnosis: Obstructive sleep apnea (adult) (pediatric)[ICD10: G47.33] Diagnosis: Personal history of colonic polyps[ICD10: Z86.010] [facility] CPT-4: 04940 07/24/2016 Plan of Care Planned Activity Notes Codes Status Date Care Plan: X-RAY EXAM OF ABDOMEN LOINC : 77011-4 Pending 12/03/2018 Visit Plan: RLQ pain, R flank pain - discussed with Dr. Benavides - will order KUB to rule out kidney stone - if pain persists will order CT scan - pt is to notify clinic if symptoms change or with any questions or concerns. 12/02/2018 Appointment: Ni Green WPtel: [facility]5 [phone] (15 min) Moderate 12/02/2018 Patient Education: Patient Medication Summary Completed 12/02/2018 Visit Plan: Rash -hands and feet -suspect fungal -continue with clotrimazole/betamethasone cream as directed -call in 1 week with update if not improving DM-check labs 08/23/2018 Appointment: Nadia Lin WPtel: [facility]5 [phone] (15 min) Moderate 08/23/2018 Patient Education: Patient Medication Summary Completed 08/23/2018 Patient Education: Diabetes Completed 08/23/2018 Visit Plan: Medicare Exam - today we discussed the patients past history, immunizations, preventative exams/evaluations - colonoscopy, fecal occult blood testing, routine labs for renal function, glucose, cholesterol, osteoporosis evaluations, cardiovascular testing and cancer screenings. We have also discussed mental health and the signs/symptoms of depression. The patient was advised of home safety evaluations and the need to make sure that as the aging process continues, we need to be aware of different ways to make the home a safer place to reside. The patient has also been counseled that exercise is necessary - and of utmost importance as we age to help decrease fall risk and to maintain independece in the home. Today we discussed the need for the patient to create paperwork for Advanced directives as well as for the patient to provide this office with a copy of her DOPA paperwork for health care surrogate. 02/26/2018 Appointment: Ni Green WPtel: [phone] [facility] [place] [address] - Annual Wellness Visit 02/26/2018 Patient Education: Patient Medication Summary Completed 02/26/2018 Visit Plan: Diabetes Mellitus - controlled - per recent FSBS reports. I have recommended for the patient to have follow up labs prior to the next office visit. The patient has been instructed to continue with current medications as previously directed, continue with regular FSBS monitoring to assure continued control of diabetes. Pt to call for any acute concerns, complaints, or if the blood glucose readings are starting to become less controlled. Sleep apnea-wears cpap GERD - continue with PPI 12/15/2017 Appointment: Krystal Benavides WPtel: [facility] (15 min) Moderate 12/15/2017 Patient Education: Patient Medication Summary Completed 12/15/2017 Referral: Abel Weinstein [address] [place] [address] [facility] Patient informed. Referral info faxed. Completed 08/18/2017 Appointment: Krystal Benavides WPtel: [facility]3 [facility]66[facility] (15 min) Moderate 08/13/2017 Visit Plan: Diabetes Mellitus - controlled - per recent FSBS reports. I have recommended for the patient to have follow up labs prior to the next office visit. The patient has been instructed to continue with current medications as previously directed, continue with regular FSBS monitoring to assure continued control of diabetes. Pt to call for any acute concerns, complaints, or if the blood glucose readings are starting to become less controlled. Dysphagia - pharyngeal - referral to Dr. Corinna CARBALLO: needs egd - possible esophageal stretching during egd. 08/10/2017 Appointment: Krystal Benavides WPtel: [phone] [facility]66[facility] (15 min) Moderate 08/10/2017 Patient Education: Patient Medication Summary Completed 08/10/2017 Patient Education: Obesity Completed 08/10/2017 Care Plan: Referral Order SNOMED-CT : [id number] Pending 08/10/2017 Visit Plan: Medicare Exam - today we discussed the patients past history, immunizations, preventative exams/evaluations - colonoscopy, fecal occult blood testing, routine labs for renal function, glucose, cholesterol, osteoporosis evaluations, cardiovascular testing and cancer screenings. We have also discussed mental health and the signs/symptoms of depression. The patient was advised of home safety evaluations and the need to make sure that as the aging process continues, we need to be aware of different ways to make the home a safer place to reside. The patient has also been counseled that exercise is necessary - and of utmost importance as we age to help decrease fall risk and to maintain independece in the home. Today we discussed the need for the patient to create paperwork for Advanced directives as well as for the patient to provide this office with a copy of her DOPA paperwork for health care surrogate. 02/20/2017 Appointment: Ni Green WPtel: [facility]6 [facility] [place] [address] - Annual Wellness Visit 02/20/2017 Patient Education: Patient Medication Summary Completed 02/20/2017 Visit Plan: Diabetes Mellitus - Uncontrolled - per recent FSBS reports. I have recommended for the patient to have follow up labs prior to the next office visit. The patient has been instructed to continue with current medications as previously directed, continue with regular FSBS monitoring to assure continued control of diabetes. Pt to call for any acute concerns, complaints, or if the blood glucose readings are starting to become less controlled. I have recommended for the patient to follow more strictly to the diabetic diet as discussed in clinic to allow for greater blood glucose control. Breast complaint - RX for mammogram 02/10/2017 Appointment: Krystal Ben[facility]ides WPtel: [phone] [place] (15 min) Moderate 02/10/2017 Patient Education: Patient Medication Summary Completed 02/10/2017 Patient Education: Obesity Completed 02/10/2017 Appointment: Krystal Benavides WPtel: [phone] (15 min) Moderate 01/22/2017 Visit Plan: Diabetes Mellitus - controlled - per recent FSBS reports. I have recommended for the patient to have follow up labs prior to the next office visit. The patient has been instructed to continue with current medications as previously directed, continue with regular FSBS monitoring to assure continued control of diabetes. Pt to call for any acute concerns, complaints, or if the blood glucose readings are starting to become less controlled. Sleep apnea-wears cpap History of polyp-recommend colonoscopy- patient to consider 07/24/2016 Appointment: New Patient 07/24/2016 Patient Education: Patient Medication Summary Completed 07/24/2016 Patient Education: Obesity Completed 07/24/2016 Referral: Abel Weinstein [address] [facility] Referral Appointment Requested Instructions Comment . Diabetes Mellitus - Uncontrolled - per recent FSBS reports. I have recommended for the patient to have follow up labs prior to the next office visit. The patient has been instructed to continue with current medications as previously directed, continue with regular FSBS monitoring to assure continued control of diabetes. Pt to call for any acute concerns, complaints, or if the blood glucose readings are starting to become less controlled. I have recommended for the patient to follow more strictly to the diabetic diet as discussed in clinic to allow for greater blood glucose control. Breast complaint - RX for mammogram . Diabetes Mellitus - controlled - per recent FSBS reports. I have recommended for the patient to have follow up labs prior to the next office visit. The patient has been instructed to continue with current medications as previously directed, continue with regular FSBS monitoring to assure continued control of diabetes. Pt to call for any acute concerns, complaints, or if the blood glucose readings are starting to become less controlled. Sleep apnea-wears cpap GERD - continue with PPI . Medicare Exam - today we discussed the patients past history, immunizations, preventative exams/evaluations - colonoscopy, fecal occult blood testing, routine labs for renal function, glucose, cholesterol, osteoporosis evaluations, cardiovascular testing and cancer screenings. We have also discussed mental health and the signs/symptoms of depression. The patient was advised of home safety evaluations and the need to make sure that as the aging process continues, we need to be aware of different ways to make the home a safer place to reside. The patient has also been counseled that exercise is necessary - and of utmost importance as we age to help decrease fall risk and to maintain independece in the home. Today we discussed the need for the patient to create paperwork for Advanced directives as well as for the patient to provide this office with a copy of her DOPA paperwork for health care surrogate. . Medicare Exam - today we discussed the patients past history, immunizations, preventative exams/evaluations - colonoscopy, fecal occult blood testing, routine labs for renal function, glucose, cholesterol, osteoporosis evaluations, cardiovascular testing and cancer screenings. We have also discussed mental health and the signs/symptoms of depression. The patient was advised of home safety evaluations and the need to make sure that as the aging process continues, we need to be aware of different ways to make the home a safer place to reside. The patient has also been counseled that exercise is necessary - and of utmost importance as we age to help decrease fall risk and to maintain independece in the home. Today we discussed the need for the patient to create paperwork for Advanced directives as well as for the patient to provide this office with a copy of her DOPA paperwork for health care surrogate. . RLQ pain, R flank pain - discussed with Dr. Benavides - will order KUB to rule out kidney stone - if pain persists will order CT scan - pt is to notify clinic if symptoms change or with any questions or concerns. return to clinic in 4months - check labs one week before next follow up appt [facility] - Dr. Morales Freeman . Diabetes Mellitus - controlled - per recent FSBS reports. I have recommended for the patient to have follow up labs prior to the next office visit. The patient has been instructed to continue with current medications as previously directed, continue with regular FSBS monitoring to assure continued control of diabetes. Pt to call for any acute concerns, complaints, or if the blood glucose readings are starting to become less controlled. Dysphagia - pharyngeal - referral to Dr. Weinstein - RE: needs egd - possible esophageal stretching during egd. . Rash -hands and feet -suspect fungal -continue with clotrimazole/betamethasone cream as directed -call in 1 week with update if not improving DM-check labs RECOMMEND COLONOSCOPY RECOMMEND PAP SMEAR/PELVIC EXAM . Diabetes Mellitus - controlled - per recent FSBS reports. I have recommended for the patient to have follow up labs prior to the next office visit. The patient has been instructed to continue with current medications as previously directed, continue with regular FSBS monitoring to assure continued control of diabetes. Pt to call for any acute concerns, complaints, or if the blood glucose readings are starting to become less controlled. Sleep apnea-wears cpap History of polyp-recommend colonoscopy-patient to consider
--- OUTSIDE RECORDS SUMMARY | 2019-01-13 12:48 | XMS REPORT | CCD ---
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 [employer] 02/26/2018 Marital status Unknown Raúl 07/24/2016 Number of children Unknown 10 2 07/24/[address]: 9424009 Former smoker quit 2005 07/24/[address]: 308215937 Never drinks alcohol 07/24/2016 Allergies, Adverse Reactions, [...] Fill Instructions metformin 1,000 mg tablet RxNorm: 047191 Tablet(s) TAKE ONE TABLET BY MOUTH TWICE A DAY 11/19/2018 05/17/2019 Active metformin 1,000 mg tablet RxNorm: 375284 TAKE ONE TABLET BY MOUTH TWICE A DAY 11/18/2018 11/18/2018 Inactive metformin 1,000 mg tablet RxNorm: 084543 TAKE ONE TABLET BY MOUTH TWICE A DAY 11/17/2018 11/17/2018 Inactive betamethasone valerate 0.1 % topical cream RxNorm: 536597 1 Application TOP BID 09/06/2018 09/05/2018 Inactive betamethasone valerate 0.1 % topical cream RxNorm: 365291 1 Application TOP BID 09/06/2018 09/06/2018 Inactive Diflucan 150 mg tablet RxNorm: 041037 1 Tablet(s) PO daily 09/12/2018 Inactive ketoconazole 2 % topical cream RxNorm: 014812 1 Application TOP BID 09/06/2018 09/19/2018 Inactive Diflucan 150 mg tablet RxNorm: 852532 1 Tablet(s) PO daily 09/05/2018 Inactive ketoconazole 2 % topical cream RxNorm: 008986 1 Application TOP BID 09/06/2018 09/05/2018 Inactive metformin 1,000 mg tablet RxNorm: 795639 TAKE ONE TABLET BY MOUTH TWICE A DAY 08/18/2018 11/15/2018 Inactive metformin 1,000 mg tablet RxNorm: 246403 Tablet(s) PO TAKE ONE TABLET BY MOUTH TWICE A DAY 01/13/2018 05/12/2018 Inactive metformin 1,000 mg tablet RxNorm: 358690 Tablet(s) PO TAKE ONE TABLET BY MOUTH TWICE A DAY 01/11/2018 01/12/2018 Inactive metformin 1,000 mg tablet RxNorm: 704746 1 Tablet(s) PO BID 11/201701/17/2018 Inactive metformin 500 mg tablet RxNorm: 508224 TAKE ONE TABLET BY MOUTH TWICE A DAY 10/30/2017 01/10/2018 Inactive Pepcid 20 mg tablet RxNorm: 466522 1 Tablet(s) PO BID 201603/07/2018 Inactive metformin 500 mg tablet RxNorm: 420497 TAKE ONE TABLET BY MOUTH TWICE A DAY 08/04/2017 10/29/2017 Inactive metformin 500 mg tablet RxNorm: 226038 TAKE ONE TABLET BY MOUTH TWICE A DAY 08/04/2017 12/23/2017 Inactive metformin 500 mg tablet RxNorm: 294469 1 Tablet(s) PO BID 12/2307/20/2017 Inactive metformin 500 mg tablet RxNorm: 894820 1 Tablet(s) PO BID 08/0712/22/2016 Inactive Tylenol PM Extra Strength 25 mg-500 mg tablet RxNorm: 7731633 1 Tablet(s) PO QHS No Start Date Active Hair,Nails and Skin Vitamin oral RxNorm: 30789 oral No Start Date Active metformin 500 mg tablet RxNorm: 550838 1 Tablet(s) PO BID No Start Date [...] Ord30 C/HDL 3.6 Ratio 08/27/2018 Comp Metabolic Yyu485 NA 143 mEq/L 08/27/2018 Comp Metabolic Acy139 K 4.3 mEq/L 08/27/2018 Comp Metabolic Ecs932 CL 106 mEq/L 08/27/2018 Comp Metabolic Gco152 CO2 29.0 mEq/L 08/27/2018 Comp Metabolic Lex713 ANION GAP 12 08/27/2018 Comp Metabolic Uwb662 GLUCOSE 116 mg/dL 08/27/2018 Comp Metabolic Nqs886 Creat 0.7 mg/dL 08/27/2018 Comp Metabolic Lwu778 eGFR 85 ml/min/1.73m2 08/27/2018 Comp Metabolic Pov190 BUN 9 mg/dL 08/27/2018 Comp Metabolic Xix983 B/C Ratio 12.5 Ratio 08/27/2018 Comp Metabolic Uvd178 CALCIUM 9.4 mg/dL 08/27/2018 Comp Metabolic Hun215 ALK PHOS 86 U/L 08/27/2018 Comp Metabolic Wgp659 AST(SGOT) 29 U/L 08/27/2018 Comp Metabolic Aez640 ALT(SGPT) 56 U/L 08/27/2018 Comp Metabolic Yhg746 BILI T 0.5 mg/dL 08/27/2018 Comp Metabolic Opz427 ALBUMIN 4.1 g/dL 08/27/2018 Comp Metabolic Dsu252 TPRO 6.7 g/dL 08/27/2018 Comp Metabolic Aho813 GLOB 2.6 g/dL 08/27/2018 Comp Metabolic Irt821 A/G Ratio 1.6 Ratio 08/27/2018 Comp Metabolic Jrh693 Osmo 285 mOsmo 08/27/2018 %Hba1C Obk200 % HbA1c 38150-7 6.5 % 08/27/2018 %Hba1C Hbc182 Gluc Ave 140 mg/dL 08/27/2018 Cbc With [...] 28.9 pg 08/27/2018 Cbc With Differential Ord2 [place]% 6.9 % 08/27/2018 Cbc With Differential Ord2 MCHC 32.5 pg 08/27/2018 Cbc With Differential Ord2 Eos% 6.6 % 08/27/2018 Cbc With Differential Ord2 PLT 245 K/ul 08/27/2018 Cbc With Differential Ord2 Baso% 0.9 % 08/27/2018 Cbc With Differential Ord2 RDW 13.6 % 08/27/2018 Cbc With Differential Ord2 Neut ABS# 3.80 K/ul 08/27/2018 Cbc With Differential Ord2 Lymph ABS# 2.17 K/ul 08/27/2018 Cbc With Differential Ord2 [place] ABS# 0.5 K/ul 08/27/2018 Cbc With Differential Ord2 Eos ABS# 0.5 K/ul 08/27/2018 Cbc With Differential Ord2 Baso ABS# 0.1 K/ul 08/27/2018 %Hba1C Vpc038 % HbA1c 26528-6 7.4 % 12/18/2017 %Hba1C Qzb154 Gluc Ave 166 mg/dL 12/18/2017 Cbc With [...] 28.3 pg 12/18/2017 Cbc With Differential Ord2 [place]% 6.8 % 12/18/2017 Cbc With Differential Ord2 [...] 2.25 K/ul 12/18/2017 Cbc With Differential Ord2 [place] ABS# 0.4 K/ul 12/18/2017 Cbc With Differential Ord2 Eos ABS# 0.5 K/ul 12/18/2017 Cbc With Differential Ord2 Baso ABS# 0.1 K/ul 12/18/2017 Microalbumin Bet094 MicroAlb <0.7 mg/dL 12/18/2017 Comp Metabolic Rhj702 NA 143 mEq/L 12/18/2017 Comp Metabolic Ceu824 K 4.1 mEq/L 12/18/2017 Comp Metabolic Yar936 CL 106 mEq/L 12/18/2017 Comp Metabolic Hny590 CO2 29.0 mEq/L 12/18/2017 Comp Metabolic Lhr770 ANION GAP 12 12/18/2017 Comp Metabolic Gqs091 GLUCOSE 147 mg/dL 12/18/2017 Comp Metabolic Jkl777 Creat 0.7 mg/dL 12/18/2017 Comp Metabolic Zsc680 eGFR 83 ml/min/1.73m2 12/18/2017 Comp Metabolic Lrq642 BUN 11 mg/dL 12/18/2017 Comp Metabolic Tbh626 B/C Ratio 14.9 Ratio 12/18/2017 Comp Metabolic Gni453 CALCIUM 9.6 mg/dL 12/18/2017 Comp Metabolic Jnx145 ALK PHOS 98 U/L 12/18/2017 Comp Metabolic Gwx381 AST(SGOT) 26 U/L 12/18/2017 Comp Metabolic Cxr887 ALT(SGPT) 48 U/L 12/18/2017 Comp Metabolic Lhc539 BILI T 0.4 mg/dL 12/18/2017 Comp Metabolic Lgf873 ALBUMIN 3.9 g/dL 12/18/2017 Comp Metabolic Owr873 TPRO 6.8 g/dL 12/18/2017 Comp Metabolic Yrw173 GLOB 2.9 g/dL 12/18/2017 Comp Metabolic Keh354 A/G Ratio 1.4 Ratio 12/18/2017 Comp Metabolic Sbj910 Osmo 287 mOsmo 12/18/2017 Tsh Ord6 TSH (3rd IS) 1.24 uIU/mL 12/18/2017 Lipid Ord30 CHOL 153 mg/dL 12/18/2017 Lipid Ord30 HDL 45.0 mg/dl 12/18/2017 Lipid Ord30 TRIG 163 mg/dL 12/18/2017 Lipid Ord30 LDL 75 mg/dL 12/18/2017 Lipid Ord30 C/HDL 3.4 Ratio 12/18/2017 %Hba1C Bwa620 % HbA1c 71547-6 7.0 % 02/20/2017 %Hba1C Uqh262 Gluc Ave 154 mg/dL 02/20/2017 Tsh Ord6 hTSH II 0.51 uIU/mL 11/14/2016 Cbc With Differential Ord2 WBC 5.89 K/ul 11/14/2016 Cbc With Differential Ord2 RBC 5.12 M/ul 11/14/2016 Cbc With Differential Ord2 HGB 14.9 g/dl 11/14/2016 Cbc With Differential Ord2 HCT 45.6 % 11/14/2016 Cbc With Differential Ord2 Neut% 56.0 % 11/14/2016 Cbc With Differential Ord2 Lymph% 30.6 % 11/14/2016 Cbc With Differential Ord2 MCV 89.1 fl 11/14/2016 Cbc With Differential Ord2 MCH 29.1 pg 11/14/2016 Cbc With Differential Ord2 [place]% 6.3 % 11/14/2016 Cbc With Differential Ord2 MCHC 32.7 pg 11/14/2016 Cbc With Differential Ord2 Eos% 6.3 % 11/14/2016 Cbc With Differential Ord2 PLT 248 K/ul 11/14/2016 Cbc With Differential Ord2 Baso% 0.8 % 11/14/2016 Cbc With Differential Ord2 RDW 13.8 % 11/14/2016 Cbc With Differential Ord2 Neut ABS# 3.30 K/ul 11/14/2016 Cbc With Differential Ord2 Lymph ABS# 1.80 K/ul 11/14/2016 Cbc With Differential Ord2 [place] ABS# 0.4 K/ul 11/14/2016 Cbc With Differential Ord2 Eos ABS# 0.4 K/ul 11/14/2016 Cbc With Differential Ord2 Baso ABS# 0.1 K/ul 11/14/2016 Comp Metabolic Ltf256 NA 138 mEq/L 11/14/2016 Comp Metabolic Str025 K 4.2 mEq/L 11/14/2016 Comp Metabolic Iyk277 CL 104 mEq/L 11/14/2016 Comp Metabolic Cni727 CO2 30.0 mEq/L 11/14/2016 Comp Metabolic Qjx078 ANION GAP 8 11/14/2016 Comp Metabolic Zpr937 GLUCOSE 154 mg/dL 11/14/2016 Comp Metabolic Lbj118 Creat 0.7 mg/dL 11/14/2016 Comp Metabolic Fzw832 eGFR 86 ml/min/1.73m2 11/14/2016 Comp Metabolic Car988 BUN 12 mg/dL 11/14/2016 Comp Metabolic Ajw418 B/C Ratio 16.7 Ratio 11/14/2016 Comp Metabolic Tfo459 CALCIUM 10.0 mg/dL 11/14/2016 Comp Metabolic Hpi371 ALK PHOS 103 U/L 11/14/2016 Comp Metabolic Clu935 AST(SGOT) 27 U/L 11/14/2016 Comp Metabolic Gfs828 ALT(SGPT) 50 U/L 11/14/2016 Comp Metabolic Zrw034 BILI T 0.4 mg/dL 11/14/2016 Comp Metabolic Cta740 ALBUMIN 4.4 g/dL 11/14/2016 Comp Metabolic Eqf204 TPRO 7.4 g/dL 11/14/2016 Comp Metabolic Ffi080 GLOB 3.0 g/dL 11/14/2016 Comp Metabolic Bty500 A/G Ratio 1.5 Ratio 11/14/2016 Comp Metabolic Whj248 Osmo 279 mOsmo 11/14/2016 Free T4 Ckp639 FREE T4 0.86 ng/dL 11/14/2016 Lipid Ord30 CHOL 164 mg/dL 11/14/2016 Lipid Ord30 HDL 49.0 mg/dl 11/14/2016 Lipid Ord30 TRIG 130 mg/dL 11/14/2016 Lipid Ord30 LDL 89 mg/dL 11/14/2016 Lipid Ord30 C/HDL 3.3 Ratio 11/14/2016 Total T3 Ord42 TT3 1.32 ng/ml 11/14/2016 %Hba1C Yoq407 % HbA1c 59793-9 7.0 % 11/14/2016 %Hba1C Ccm924 Gluc Ave 154 mg/dL 11/14/2016 Comp Metabolic Smk056 NA 136 mEq/L 07/24/2016 Comp Metabolic Yov382 K 4.1 mEq/L 07/24/2016 Comp Metabolic Ihs702 CL 102 mEq/L 07/24/2016 Comp Metabolic Jfc520 CO2 28.0 mEq/L 07/24/2016 Comp Metabolic Tdc062 ANION GAP 10 07/24/2016 Comp Metabolic Vpy178 GLUCOSE 211 mg/dL 07/24/2016 Comp Metabolic Vmd940 Creat 0.7 mg/dL 07/24/2016 Comp Metabolic Hrg905 eGFR 95 ml/min/1.73m2 07/24/2016 Comp Metabolic Kwu782 BUN 14 mg/dL 07/24/2016 Comp Metabolic Tbb958 B/C Ratio 21.2 Ratio 07/24/2016 Comp Metabolic Ywf856 CALCIUM 9.5 mg/dL 07/24/2016 Comp Metabolic Cyh722 ALK PHOS 93 U/L 07/24/2016 Comp Metabolic Fsi711 AST(SGOT) 17 U/L 07/24/2016 Comp Metabolic Ztd419 ALT(SGPT) 40 U/L 07/24/2016 Comp Metabolic Gpa391 BILI T 0.3 mg/dL 07/24/2016 Comp Metabolic Dvg486 ALBUMIN 4.2 g/dL 07/24/2016 Comp Metabolic Ths241 TPRO 7.2 g/dL 07/24/2016 Comp Metabolic Lrx949 GLOB 3.0 g/dL 07/24/2016 Comp Metabolic Iat539 A/G Ratio 1.4 Ratio 07/24/2016 Comp Metabolic Ogw086 Osmo 279 mOsmo 07/24/2016 Tsh Ord6 hTSH II 0.44 uIU/mL 07/24/2016 %Hba1C Zir117 % HbA1c 49217-3 7.1 % 07/24/2016 %Hba1C Gqn289 Gluc Ave 157 mg/dL 07/24/2016 Cbc With Differential Ord2 WBC 6.23 K/ul 07/24/2016 Cbc With Differential Ord2 RBC 5.02 M/ul 07/24/2016 Cbc With Differential Ord2 HGB 14.6 g/dl 07/24/2016 Cbc With Differential Ord2 HCT 44.2 % 07/24/2016 Cbc With Differential Ord2 Neut% 49.9 % 07/24/2016 Cbc With Differential Ord2 MCV 88.0 fl 07/24/2016 Cbc With Differential Ord2 Lymph% 33.9 % 07/24/2016 Cbc With Differential Ord2 MCH 29.1 pg 07/24/2016 Cbc With Differential Ord2 [place]% 7.7 % 07/24/2016 Cbc With Differential Ord2 MCHC 33.0 pg 07/24/2016 Cbc With Differential Ord2 Eos% 7.5 % 07/24/2016 Cbc With Differential Ord2 PLT 261 K/ul 07/24/2016 Cbc With Differential Ord2 Baso% 1.0 % 07/24/2016 Cbc With Differential Ord2 RDW 13.6 % 07/24/2016 Cbc With Differential Ord2 Neut ABS# 3.11 K/ul 07/24/2016 Cbc With Differential Ord2 Lymph ABS# 2.11 K/ul 07/24/2016 Cbc With Differential Ord2 [place] ABS# 0.5 K/ul 07/24/2016 Cbc With Differential [...] Code : 8480-6 BMI: 32.0 Code : 34382-1 Heart Rate 1 : 97 bpm Height: 5' SpO2: 97% Weight: 164 lbs 08/23/2018 Blood Pressure 1: 130/78 Code : 8480-6 BMI: 31.1 Code : 05851-3 Heart Rate 1 : 95 bpm Height: 5' SpO2: 98% Weight: 159 lbs 02/26/2018 Blood Pressure 1: 124/80 Code : 8480-6 BMI: 31.6 Code : 14547-8 Heart Rate 1 : 89 bpm Height: 5' SpO2: 95% Waist Measure (cm): 102 cm Weight: 162 lbs 12/15/2017 Blood Pressure 1: 122/76 Code : 8480-6 BMI: 32.2 Code : 59218-8 Heart Rate 1 : 90 bpm Height: 5' SpO2: 97% Weight: 165 lbs 08/10/2017 Blood Pressure 1: 116/72 Code : 8480-6 BMI: 31.4 Code : 81799-6 Heart Rate 1 : 95 bpm Height: 5' SpO2: 96% Weight: 161 lbs 02/20/2017 Blood Pressure 1: 134/76 Code : 8480-6 BMI: 31.1 Code : 90467-1 Heart Rate 1 : 90 bpm Height: 5' SpO2: 93% Waist Measure (cm): 91 cm Weight: 159 lbs 02/10/2017 Blood Pressure 1: 132/80 Code : 8480-6 BMI: 31.1 Code : 50490-8 Heart Rate 1 : 93 bpm Height: 5' SpO2: 96% Weight: 159 lbs 07/24/2016 Blood Pressure 1: 130/72 Code : 8480-6 BMI: 32.6 Code : 80663-7 Heart Rate 1 : 86 bpm Height: [...] lower quadrant pain[ICD10: R10.31] Ni Benavides MD, [facility] CPT-4: 02646 12/02/2018 ([id number] EST. PATIENT, LEVEL III Diagnosis: Type 2 diabetes mellitus without complications[ICD10: E11.9] Diagnosis: Rash and other nonspecific skin eruption[ICD10: R21] Nadia Benavides MD, [facility] CPT-4: 77896 08/23/2018 [id number] EST. PATIENT, LEVEL III Diagnosis: Type 2 diabetes mellitus without complications[ICD10: E11.9] Diagnosis: Gastro-esophageal reflux disease without esophagitis[ICD10: K21.9] Diagnosis: Primary central sleep apnea[ICD10: G47.31] Krystal Benavides MD, [facility] CPT-4: 48122 12/15/2017 ([id number]) 28064 EST. PATIENT, LEVEL IV Diagnosis: Dysphagia, pharyngeal phase[ICD10: R13.13] Diagnosis: Type 2 diabetes mellitus without complications[ICD10: E11.9] Krystal Benavides MD, [facility] CPT-4: 53149 08/10/2017 ([id number]) 30419 EST. PATIENT, LEVEL IV Diagnosis: Type 2 diabetes mellitus without complications[ICD10: E11.9] Diagnosis: Encounter for screening mammogram for malignant neoplasm of breast[ ICD10: Z12.31] [facility] CPT-4: 56352 02/10/2017 ([id number]) OFFICE VISIT, NEW - LEVEL 3 Diagnosis: Type 2 diabetes mellitus without complications[ICD10: E11.9] Diagnosis: Obstructive sleep apnea (adult) (pediatric)[ICD10: G47.33] Diagnosis: Personal history of colonic polyps[ICD10: Z86.010] [facility] CPT-4: 04907 07/24/2016 Plan of Care Planned Activity Notes Codes Status Date Care Plan: X-RAY EXAM OF ABDOMEN LOINC : 10199-6 Pending 12/03/2018 Visit Plan: RLQ pain, R flank pain - discussed with Dr. Benavides - will order KUB to rule out kidney stone - if pain persists will order CT scan - pt is to notify clinic if symptoms change or with any questions or concerns. 12/02/2018 Appointment: Ni Green WPtel: [facility] (15 min) Moderate 12/02/2018 Patient Education: Patient Medication Summary Completed 12/02/2018 Visit Plan: Rash -hands and feet -suspect fungal -continue with clotrimazole/betamethasone cream as directed -call in 1 week with update if not improving DM-check labs 08/23/2018 Appointment: Nadia Lin WPtel: [phone] (15 min) Moderate 08/23/2018 Patient Education: Patient [...] surrogate. 02/26/2018 Appointment: Ni Green WPtel: [phone] [facility] [place] [address] - Annual Wellness Visit 02/26/2018 Patient Education: [...] with PPI 12/15/2017 Appointment: Krystal Benavides WPtel: [facility] [address] (15 min) Moderate 12/15/2017 Patient Education: Patient Medication Summary Completed 12/15/2017 Referral: Abel Weinstein [address] [place] [address] [facility] Patient informed. Referral info faxed. Completed 08/18/2017 Appointment: Krystal Benavides WPtel: [facility]6 [facility] (15 min) Moderate 08/13/2017 Visit [...] egd. 08/10/2017 Appointment: Krystal Benavides WPtel: [phone] [facility] (15 min) Moderate 08/10/2017 Patient Education: Patient Medication Summary Completed 08/10/2017 Patient Education: Obesity Completed 08/10/2017 Care Plan: Referral Order SNOMED-CT : [id number] Pending 08/10/2017 Visit Plan: Medicare Exam - [...] care surrogate. 02/20/2017 Appointment: Ni Green WPtel: [facility]0 [facility] [place] [address] - Annual Wellness Visit 02/20/2017 Patient Education: [...] for mammogram 02/10/2017 [phone] [place] (15 min) Moderate 02/10/2017 Patient Education: Patient Medication Summary Completed 02/10/2017 Patient Education: Obesity Completed 02/10/2017 [phone] (15 min) Moderate 01/22/2017 Visit Plan: Diabetes [...] 07/24/2016 Referral: Abel Weinstein [address] [facility] Referral Appointment Requested Instructions Comment . Diabetes [...]
--- OUTSIDE RECORDS SUMMARY | 2019-01-13 12:49 | XMS REPORT | CCD ---
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 [employer] 02/26/2018 Marital status Unknown Raúl 07/24/2016 Number of children Unknown 10 2 07/24/[address]: 3121292 Former smoker quit 2005 07/24/[address]: 919456210 Never drinks alcohol 07/24/2016 Allergies, Adverse Reactions, Alerts Substance Reaction Codes Entered Date Inactivated Date Status aspirin hives, RxNorm: 1191 07/24/2016 No Inactive Date Active IV DYE, IODINE CONTAINING hives Unknown 07/24/2016 No Inactive Date Active Past Medical History Illness Codes Condition Status Onset Date Resolved Date Encounter for general adult medical examination with [...] Problems Condition Codes Effective Dates Condition Status Encounter for general adult medical examination with [...] Fill Instructions metformin 1,000 mg tablet RxNorm: 035059 Tablet(s) TAKE ONE TABLET BY MOUTH TWICE A DAY 11/19/2018 05/17/2019 Active metformin 1,000 mg tablet RxNorm: 782182 TAKE ONE TABLET BY MOUTH TWICE A DAY 11/18/2018 11/18/2018 Inactive metformin 1,000 mg tablet RxNorm: 405628 TAKE ONE TABLET BY MOUTH TWICE A DAY 11/17/2018 11/17/2018 Inactive betamethasone valerate 0.1 % topical cream RxNorm: 946218 1 Application TOP BID 09/06/2018 09/05/2018 Inactive betamethasone valerate 0.1 % topical cream RxNorm: 667320 1 Application TOP BID 09/06/2018 09/06/2018 Inactive Diflucan 150 mg tablet RxNorm: 166914 1 Tablet(s) PO daily 09/12/2018 Inactive ketoconazole 2 % topical cream RxNorm: 355302 1 Application TOP BID 09/06/2018 09/19/2018 Inactive Diflucan 150 mg tablet RxNorm: 506298 1 Tablet(s) PO daily 09/05/2018 Inactive ketoconazole 2 % topical cream RxNorm: 193340 1 Application TOP BID 09/06/2018 09/05/2018 Inactive metformin 1,000 mg tablet RxNorm: 326024 TAKE ONE TABLET BY MOUTH TWICE A DAY 08/18/2018 11/15/2018 Inactive metformin 1,000 mg tablet RxNorm: 972130 Tablet(s) PO TAKE ONE TABLET BY MOUTH TWICE A DAY 01/13/2018 05/12/2018 Inactive metformin 1,000 mg tablet RxNorm: 948066 Tablet(s) PO TAKE ONE TABLET BY MOUTH TWICE A DAY 01/11/2018 01/12/2018 Inactive metformin 1,000 mg tablet RxNorm: 539949 1 Tablet(s) PO BID 11/201701/17/2018 Inactive metformin 500 mg tablet RxNorm: 572262 TAKE ONE TABLET BY MOUTH TWICE A DAY 10/30/2017 01/10/2018 Inactive Pepcid 20 mg tablet RxNorm: 290411 1 Tablet(s) PO BID 201603/07/2018 Inactive metformin 500 mg tablet RxNorm: 807464 TAKE ONE TABLET BY MOUTH TWICE A DAY 08/04/2017 10/29/2017 Inactive metformin 500 mg tablet RxNorm: 092980 TAKE ONE TABLET BY MOUTH TWICE A DAY 08/04/2017 12/23/2017 Inactive metformin 500 mg tablet RxNorm: 844945 1 Tablet(s) PO BID 12/2307/20/2017 Inactive metformin 500 mg tablet RxNorm: 875259 1 Tablet(s) PO BID 08/0712/22/2016 Inactive Tylenol PM Extra Strength 25 mg-500 mg tablet RxNorm: 9834818 1 Tablet(s) PO QHS No Start Date Active Hair,Nails and Skin Vitamin oral RxNorm: 88568 oral No Start Date Active metformin 500 mg tablet RxNorm: 826823 1 Tablet(s) PO BID No Start Date 08/06/2016 Inactive Medication Administered No Medication Administered data Immunizations No Immunization data Assessments Condition Codes Effective Dates Type 2 diabetes mellitus without complications ICD-10: E11.9 ICD-9: 250.00 08/23/2018 Rash and other nonspecific skin eruption ICD-10: R21 ICD-9: 782.1 08/23/2018 Encounter for general adult medical examination with abnormal findings ICD-10: Z00.01 ICD-9: V70.0 02/26/2018 Gastro-esophageal reflux disease without esophagitis ICD-10 : K21.9 ICD-9: 530.81 12/15/2017 Primary central sleep apnea ICD-10: G47.31 ICD-9: 327.22 12/15/2017 Dysphagia, pharyngeal phase ICD-10: R13.13 ICD-9: 787.23 08/10/2017 Encounter for screening mammogram for malignant neoplasm of breast ICD-10: Z12.31 ICD-9: V76.12 02/10/2017 Personal history of colonic polyps ICD-10: Z86.010 ICD-9: V12.72 07/24/2016 Obstructive sleep apnea (adult) (pediatric) ICD-10: G47.33 ICD-9: 327.23 07/24/2016 Reason For Visit Reason For Visit Effective Dates Notes rash 08/23/2018 Annual Medicare Wellness Exam 02/26/2018 diabetes mellitus 12/15/2017 diabetes mellitus 08/10/2017 Annual Medicare Wellness Exam 02/20/2017 diabetes mellitus 02/10/2017 diabetes mellitus 07/24/2016 Results Observation Observation Code Item Item Code Result Date Comp Metabolic Fjw924 NA 143 mEq/L 08/27/2018 Comp Metabolic Tly241 K 4.3 mEq/L 08/27/2018 Comp Metabolic Eyx189 CL 106 mEq/L 08/27/2018 Comp Metabolic Ioh839 CO2 29.0 mEq/L 08/27/2018 Comp Metabolic Dtg709 ANION GAP 12 08/27/2018 Comp Metabolic Zoo107 GLUCOSE 116 mg/dL 08/27/2018 Comp Metabolic Hnc492 Creat 0.7 mg/dL 08/27/2018 Comp Metabolic Byl291 eGFR 85 ml/min/1.73m2 08/27/2018 Comp Metabolic Sla512 BUN 9 mg/dL 08/27/2018 Comp Metabolic Zjt582 B/C Ratio 12.5 Ratio 08/27/2018 Comp Metabolic Oli733 CALCIUM 9.4 mg/dL 08/27/2018 Comp Metabolic Ogu658 ALK PHOS 86 U/L 08/27/2018 Comp Metabolic Ofq326 AST(SGOT) 29 U/L 08/27/2018 Comp Metabolic Vir853 ALT(SGPT) 56 U/L 08/27/2018 Comp Metabolic Igm680 BILI T 0.5 mg/dL 08/27/2018 Comp Metabolic Dcf914 ALBUMIN 4.1 g/dL 08/27/2018 Comp Metabolic Jnj996 TPRO 6.7 g/dL 08/27/2018 Comp Metabolic Asu987 GLOB 2.6 g/dL 08/27/2018 Comp Metabolic Pkb321 A/G Ratio 1.6 Ratio 08/27/2018 Comp Metabolic Ntt006 Osmo 285 mOsmo 08/27/2018 %Hba1C Mod608 % HbA1c 20185-0 6.5 % 08/27/2018 %Hba1C Hmm809 Gluc Ave 140 mg/dL 08/27/2018 Lipid Ord30 CHOL 167 mg/dL 08/27/2018 Lipid Ord30 HDL 46.0 mg/dl 08/27/2018 Lipid Ord30 TRIG 204 mg/dL 08/27/2018 Lipid Ord30 LDL 80 mg/dL 08/27/2018 Lipid Ord30 C/HDL 3.6 Ratio 08/27/2018 Tsh Ord6 TSH (3rd IS) 0.57 uIU/mL 08/27/2018 Cbc With Differential Ord2 WBC 6.97 [...] 28.9 pg 08/27/2018 Cbc With Differential Ord2 [place]% 6.9 % 08/27/2018 Cbc With Differential Ord2 [...] 2.17 K/ul 08/27/2018 Cbc With Differential Ord2 [place] ABS# 0.5 K/ul 08/27/2018 Cbc With Differential Ord2 Eos ABS# 0.5 K/ul 08/27/2018 Cbc With Differential Ord2 Baso ABS# 0.1 K/ul 08/27/2018 %Hba1C Kvf076 % HbA1c 09438-1 7.4 % 12/18/2017 %Hba1C Uzq733 Gluc Ave 166 mg/dL 12/18/2017 Tsh Ord6 TSH (3rd IS) 1.24 uIU/mL 12/18/2017 Lipid Ord30 CHOL 153 mg/dL 12/18/2017 Lipid Ord30 HDL 45.0 mg/dl 12/18/2017 Lipid Ord30 TRIG 163 mg/dL 12/18/2017 Lipid Ord30 LDL 75 mg/dL 12/18/2017 Lipid Ord30 C/HDL 3.4 Ratio 12/18/2017 Comp Metabolic Dql964 NA 143 mEq/L 12/18/2017 Comp Metabolic Rmg483 K 4.1 mEq/L 12/18/2017 Comp Metabolic Bgk725 CL 106 mEq/L 12/18/2017 Comp Metabolic Pup430 CO2 29.0 mEq/L 12/18/2017 Comp Metabolic Efz324 ANION GAP 12 12/18/2017 Comp Metabolic Dqv677 GLUCOSE 147 mg/dL 12/18/2017 Comp Metabolic Dno455 Creat 0.7 mg/dL 12/18/2017 Comp Metabolic Shd224 eGFR 83 ml/min/1.73m2 12/18/2017 Comp Metabolic Gzb547 BUN 11 mg/dL 12/18/2017 Comp Metabolic Vmr726 B/C Ratio 14.9 Ratio 12/18/2017 Comp Metabolic Syv351 CALCIUM 9.6 mg/dL 12/18/2017 Comp Metabolic Mwd005 ALK PHOS 98 U/L 12/18/2017 Comp Metabolic Slb247 AST(SGOT) 26 U/L 12/18/2017 Comp Metabolic Jiv952 ALT(SGPT) 48 U/L 12/18/2017 Comp Metabolic Qtx973 BILI T 0.4 mg/dL 12/18/2017 Comp Metabolic Lqf629 ALBUMIN 3.9 g/dL 12/18/2017 Comp Metabolic Tiz651 TPRO 6.8 g/dL 12/18/2017 Comp Metabolic Wjh141 GLOB 2.9 g/dL 12/18/2017 Comp Metabolic Son595 A/G Ratio 1.4 Ratio 12/18/2017 Comp Metabolic Phr051 Osmo 287 mOsmo 12/18/2017 Microalbumin Kbt092 MicroAlb <0.7 mg/dL 12/18/2017 Cbc With Differential Ord2 WBC 6.00 K/ul 12/18/2017 Cbc With Differential Ord2 RBC 5.02 M/ul 12/18/2017 Cbc With Differential Ord2 HGB 14.2 g/dl 12/18/2017 Cbc With Differential Ord2 Neut% 47.1 % 12/18/2017 Cbc With Differential Ord2 HCT 43.9 % 12/18/2017 Cbc With Differential Ord2 MCV 87.5 fl 12/18/2017 Cbc With Differential Ord2 Lymph% 37.5 % 12/18/2017 Cbc With Differential Ord2 MCH 28.3 pg 12/18/2017 Cbc With Differential Ord2 [place]% 6.8 % 12/18/2017 Cbc With Differential Ord2 [...] 2.25 K/ul 12/18/2017 Cbc With Differential Ord2 [place] ABS# 0.4 K/ul 12/18/2017 Cbc With Differential Ord2 Eos ABS# 0.5 K/ul 12/18/2017 Cbc With Differential Ord2 Baso ABS# 0.1 K/ul 12/18/2017 %Hba1C Qfl117 % HbA1c 75227-4 7.0 % 02/20/2017 %Hba1C Jlc264 Gluc Ave 154 mg/dL 02/20/2017 %Hba1C Xdb079 % HbA1c 22248-2 7.0 % 11/14/2016 %Hba1C Qqa692 Gluc Ave 154 mg/dL 11/14/2016 Total T3 Ord42 TT3 1.32 ng/ml 11/14/2016 Lipid Ord30 CHOL 164 mg/dL 11/14/2016 Lipid Ord30 HDL 49.0 mg/dl 11/14/2016 Lipid Ord30 TRIG 130 mg/dL 11/14/2016 Lipid Ord30 LDL 89 mg/dL 11/14/2016 Lipid Ord30 C/HDL 3.3 Ratio 11/14/2016 Free T4 Kuz635 FREE T4 0.86 ng/dL 11/14/2016 Comp Metabolic Mbu754 NA 138 mEq/L 11/14/2016 Comp Metabolic Oui827 K 4.2 mEq/L 11/14/2016 Comp Metabolic Eqr383 CL 104 mEq/L 11/14/2016 Comp Metabolic Zbw933 CO2 30.0 mEq/L 11/14/2016 Comp Metabolic Jxs866 ANION GAP 8 11/14/2016 Comp Metabolic Lom382 GLUCOSE 154 mg/dL 11/14/2016 Comp Metabolic Nmf793 Creat 0.7 mg/dL 11/14/2016 Comp Metabolic Oxa440 eGFR 86 ml/min/1.73m2 11/14/2016 Comp Metabolic Gqm952 BUN 12 mg/dL 11/14/2016 Comp Metabolic Jgu765 B/C Ratio 16.7 Ratio 11/14/2016 Comp Metabolic Lxs380 CALCIUM 10.0 mg/dL 11/14/2016 Comp Metabolic Wul611 ALK PHOS 103 U/L 11/14/2016 Comp Metabolic Snt394 AST(SGOT) 27 U/L 11/14/2016 Comp Metabolic Ozc157 ALT(SGPT) 50 U/L 11/14/2016 Comp Metabolic Sju949 BILI T 0.4 mg/dL 11/14/2016 Comp Metabolic Oah886 ALBUMIN 4.4 g/dL 11/14/2016 Comp Metabolic Cqs258 TPRO 7.4 g/dL 11/14/2016 Comp Metabolic Zhm247 GLOB 3.0 g/dL 11/14/2016 Comp Metabolic Ixg034 A/G Ratio 1.5 Ratio 11/14/2016 Comp Metabolic Gyp706 Osmo 279 mOsmo 11/14/2016 Cbc With Differential Ord2 WBC 5.89 [...] 29.1 pg 11/14/2016 Cbc With Differential Ord2 [place]% 6.3 % 11/14/2016 Cbc With Differential Ord2 MCHC 32.7 pg 11/14/2016 Cbc With Differential Ord2 Eos% 6.3 % 11/14/2016 Cbc With Differential Ord2 PLT 248 K/ul 11/14/2016 Cbc With Differential Ord2 Baso% 0.8 % 11/14/2016 Cbc With Differential Ord2 Neut ABS# 3.30 K/ul 11/14/2016 Cbc With Differential Ord2 RDW 13.8 % 11/14/2016 Cbc With Differential Ord2 Lymph ABS# 1.80 K/ul 11/14/2016 Cbc With Differential Ord2 [place] ABS# 0.4 K/ul 11/14/2016 Cbc With Differential Ord2 Eos ABS# 0.4 K/ul 11/14/2016 Cbc With Differential Ord2 Baso ABS# 0.1 K/ul 11/14/2016 Tsh Ord6 hTSH II 0.51 uIU/mL 11/14/2016 Cbc With Differential Ord2 WBC 6.23 K/ul 07/24/2016 Cbc With Differential Ord2 RBC 5.02 M/ul 07/24/2016 Cbc With Differential Ord2 HGB 14.6 g/dl 07/24/2016 Cbc With Differential Ord2 Neut% 49.9 % 07/24/2016 Cbc With Differential Ord2 HCT 44.2 % 07/24/2016 Cbc With Differential Ord2 MCV 88.0 fl 07/24/2016 Cbc With Differential Ord2 Lymph% 33.9 % 07/24/2016 Cbc With Differential Ord2 MCH 29.1 pg 07/24/2016 Cbc With Differential Ord2 [place]% 7.7 % 07/24/2016 Cbc With Differential Ord2 [...] 2.11 K/ul 07/24/2016 Cbc With Differential Ord2 [place] ABS# 0.5 K/ul 07/24/2016 Cbc With Differential Ord2 Eos ABS# 0.5 K/ul 07/24/2016 Cbc With Differential Ord2 Baso ABS# 0.1 K/ul 07/24/2016 Tsh Ord6 hTSH II 0.44 uIU/mL 07/24/2016 %Hba1C Dzz096 % HbA1c 40580-4 7.1 % 07/24/2016 %Hba1C Fgk614 Gluc Ave 157 mg/dL 07/24/2016 Comp Metabolic Vva649 NA 136 mEq/L 07/24/2016 Comp Metabolic Cpy717 K 4.1 mEq/L 07/24/2016 Comp Metabolic Pdt920 CL 102 mEq/L 07/24/2016 Comp Metabolic Pqi824 CO2 28.0 mEq/L 07/24/2016 Comp Metabolic Fvu093 ANION GAP 10 07/24/2016 Comp Metabolic Tne996 GLUCOSE 211 mg/dL 07/24/2016 Comp Metabolic Miq079 Creat 0.7 mg/dL 07/24/2016 Comp Metabolic Kpj055 eGFR 95 ml/min/1.73m2 07/24/2016 Comp Metabolic Yvw113 BUN 14 mg/dL 07/24/2016 Comp Metabolic Tnc941 B/C Ratio 21.2 Ratio 07/24/2016 Comp Metabolic Ksy724 CALCIUM 9.5 mg/dL 07/24/2016 Comp Metabolic Dzc979 ALK PHOS 93 U/L 07/24/2016 Comp Metabolic Por806 AST(SGOT) 17 U/L 07/24/2016 Comp Metabolic Jes862 ALT(SGPT) 40 U/L 07/24/2016 Comp Metabolic Haf205 BILI T 0.3 mg/dL 07/24/2016 Comp Metabolic Ogo622 ALBUMIN 4.2 g/dL 07/24/2016 Comp Metabolic Hdb746 TPRO 7.2 g/dL 07/24/2016 Comp Metabolic Igx586 GLOB 3.0 g/dL 07/24/2016 Comp Metabolic Ojf385 A/G Ratio 1.4 Ratio 07/24/2016 Comp Metabolic Pqf249 Osmo 279 mOsmo 07/24/2016 Review of Systems System Result Effective Dates Constitutional No recent illness 2017 Constitutional No [...] Result Effective Dates Notes Full Exam - Dermatology Constitutional general appearance [...] -4: G0439 02/20/2017 Vital Signs Date Vital 08/23/2018 Blood Pressure 1: 130/78 Code : 8480-6 BMI: 31.1 Code : 09096-5 Heart Rate 1 : 95 bpm Height: 5' SpO2: 98% Weight: 159 lbs 02/26/2018 Blood Pressure 1: 124/80 Code : 8480-6 BMI: 31.6 Code : 18765-8 Heart Rate 1 : 89 bpm Height: 5' SpO2: 95% Waist Measure (cm): 102 cm Weight: 162 lbs 12/15/2017 Blood Pressure 1: 122/76 Code : 8480-6 BMI: 32.2 Code : 73857-6 Heart Rate 1 : 90 bpm Height: 5' SpO2: 97% Weight: 165 lbs 08/10/2017 Blood Pressure 1: 116/72 Code : 8480-6 BMI: 31.4 Code : 30271-2 Heart Rate 1 : 95 bpm Height: 5' SpO2: 96% Weight: 161 lbs 02/20/2017 Blood Pressure 1: 134/76 Code : 8480-6 BMI: 31.1 Code : 55048-6 Heart Rate 1 : 90 bpm Height: 5' SpO2: 93% Waist Measure (cm): 91 cm Weight: 159 lbs 02/10/2017 Blood Pressure 1: 132/80 Code : 8480-6 BMI: 31.1 Code : 04308-8 Heart Rate 1 : 93 bpm Height: 5' SpO2: 96% Weight: 159 lbs 07/24/2016 Blood Pressure 1: 130/72 Code : 8480-6 BMI: 32.6 Code : 01507-3 Heart Rate 1 : 86 bpm Height: 5' SpO2: 96% Weight: 167 lbs Functional Status No Functional Status data History of Present Illness Symptom Name Status Result Effective Date Notes rash Location-Major on the hands 08/23/2018 None [...] data Encounters Encounter Performer Location Codes Date ([id number]) [id number] EST. PATIENT, LEVEL III Diagnosis: Type 2 diabetes mellitus without complications[ICD10: E11.9] Diagnosis: Rash and other nonspecific skin eruption[ICD10: R21] Nadia Benavides MD, [facility] CPT-4: 61024 08/23/2018 [id number] EST. PATIENT, LEVEL III Diagnosis: Type 2 diabetes mellitus without complications[ICD10: E11.9] Diagnosis: Gastro-esophageal reflux disease without esophagitis[ICD10: K21.9] Diagnosis: Primary central sleep apnea[ICD10: G47.31] Krystal Benavides MD, [facility] CPT-4: 93342 12/15/2017 ([id number]) [id number] EST. PATIENT, LEVEL IV Diagnosis: Dysphagia, pharyngeal phase[ICD10: R13.13] Diagnosis: Type 2 diabetes mellitus without complications[ICD10: E11.9] Krystal Benavides MD, [facility] CPT-4: 04909 08/10/2017 ([id number]) [id number] EST. PATIENT, LEVEL IV Diagnosis: Type 2 diabetes mellitus without complications[ICD10: E11.9] Diagnosis: Encounter for screening mammogram for malignant neoplasm of breast[ ICD10: Z12.31] Krystal Benavides MD, [facility] CPT-4: 76194 02/10/2017 ([id number]) OFFICE VISIT, NEW - LEVEL 3 Diagnosis: Type 2 diabetes mellitus without complications[ICD10: E11.9] Diagnosis: Obstructive sleep apnea (adult) (pediatric)[ICD10: G47.33] Diagnosis: Personal history of colonic polyps[ICD10: Z86.010] [facility] CPT-4: 85239 07/24/2016 Plan of Care Planned Activity Notes Codes Status Date Visit Plan: Rash -hands and feet -suspect fungal -continue with clotrimazole/betamethasone cream as directed -call in 1 week with update if not improving DM-check labs 08/23/2018 Appointment: Nadia Lin WPtel: [phone] [facility] [phone] (15 min) Moderate 08/23/2018 Patient Education: Patient [...] care surrogate. 02/26/2018 Appointment: Ni Green WPtel: [facility]5 [facility] [place] [address] - Annual Wellness Visit 02/26/2018 Patient Education: [...] with PPI 12/15/2017 Appointment: Krystal Benavides WPtel: [facility]8 [facility] (15 min) Moderate 12/15/2017 Patient Education: Patient Medication Summary Completed 12/15/2017 Referral: Abel Weinstein [facility] Patient informed. Referral info faxed. Completed 08/18/2017 Appointment: Krystal Benavides WPtel: [facility]6 [facility] (15 min) Moderate 08/13/2017 Visit Plan: Diabetes [...] - pharyngeal - referral to Dr. Corinna Harkins RE: needs egd - possible esophageal stretching during egd. 08/10/2017 Appointment: Krystal Benavides WPtel: [facility] [address] (15 min) Moderate 08/10/2017 Patient Education: Patient Medication Summary Completed 08/10/2017 Patient Education: Obesity Completed 08/10/2017 Care Plan: Referral Order SNOMED-CT : [id number] Pending 08/10/2017 Visit Plan: Medicare Exam - [...] care surrogate. 02/20/2017 Appointment: Ni Green WPtel: [facility] [facility] [place] [place] [address] - Annual Wellness Visit 02/20/2017 Patient Education: [...] for mammogram 02/10/2017 Appointment: Krystal Benavides WPtel: [phone] [facility] (15 min) Moderate 02/10/2017 Patient Education: Patient Medication Summary Completed 02/10/2017 Patient Education: Obesity Completed 02/10/2017 [phone] (15 min) Moderate 01/22/2017 Visit Plan: [...] Abel Weinstein [address] [facility] Referral Appointment Requested Instructions Comment . [...] her DOPA paperwork for health care surrogate. return to clinic in 4months - check labs one week before next follow up appt [facility] - Dr. Morales Freeman . Diabetes [...]
--- OUTSIDE RECORDS SUMMARY | 2019-01-13 12:50 | XMS REPORT | CCD ---
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 [employer] 02/26/2018 Marital status Unknown Raúl 07/24/2016 Number of children Unknown 10 2 07/24/[address]: 4770666 Former smoker quit 2005 07/24/[address]: 276476141 Never drinks alcohol 07/24/2016 Allergies, Adverse Reactions, [...] Fill Instructions metformin 1,000 mg tablet RxNorm: 626198 TAKE ONE TABLET BY MOUTH TWICE A DAY 11/18/2018 05/16/2019 Active metformin 1,000 mg tablet RxNorm: 362746 TAKE ONE TABLET BY MOUTH TWICE A DAY 11/17/2018 11/17/2018 Inactive betamethasone valerate 0.1 % topical cream RxNorm: 230899 1 Application TOP BID 09/06/2018 09/05/2018 Inactive betamethasone valerate 0.1 % topical cream RxNorm: 252316 1 Application TOP BID 09/06/2018 09/06/2018 Inactive Diflucan 150 mg tablet RxNorm: 093003 1 Tablet(s) PO daily 09/12/2018 Inactive ketoconazole 2 % topical cream RxNorm: 951881 1 Application TOP BID 09/06/2018 09/19/2018 Inactive Diflucan 150 mg tablet RxNorm: 619019 1 Tablet(s) PO daily 09/05/2018 Inactive ketoconazole 2 % topical cream RxNorm: 993271 1 Application TOP BID 09/06/2018 09/05/2018 Inactive metformin 1,000 mg tablet RxNorm: 063084 TAKE ONE TABLET BY MOUTH TWICE A DAY 08/18/2018 11/15/2018 Inactive metformin 1,000 mg tablet RxNorm: 954300 Tablet(s) PO TAKE ONE TABLET BY MOUTH TWICE A DAY 01/13/2018 05/12/2018 Inactive metformin 1,000 mg tablet RxNorm: 584029 Tablet(s) PO TAKE ONE TABLET BY MOUTH TWICE A DAY 01/11/2018 01/12/2018 Inactive metformin 1,000 mg tablet RxNorm: 288544 1 Tablet(s) PO BID 11/201701/17/2018 Inactive metformin 500 mg tablet RxNorm: 497509 TAKE ONE TABLET BY MOUTH TWICE A DAY 10/30/2017 01/10/2018 Inactive Pepcid 20 mg tablet RxNorm: 220952 1 Tablet(s) PO BID 201603/07/2018 Inactive metformin 500 mg tablet RxNorm: 578427 TAKE ONE TABLET BY MOUTH TWICE A DAY 08/04/2017 10/29/2017 Inactive metformin 500 mg tablet RxNorm: 137614 TAKE ONE TABLET BY MOUTH TWICE A DAY 08/04/2017 12/23/2017 Inactive metformin 500 mg tablet RxNorm: 804151 1 Tablet(s) PO BID 12/2307/20/2017 Inactive metformin 500 mg tablet RxNorm: 359393 1 Tablet(s) PO BID 08/0712/22/2016 Inactive Tylenol PM Extra Strength 25 mg-500 mg tablet RxNorm: 0547645 1 Tablet(s) PO QHS No Start Date Active Hair,Nails and Skin Vitamin oral RxNorm: 80020 oral No Start Date Active metformin 500 mg tablet RxNorm: 867213 1 Tablet(s) PO BID No Start Date [...] Ord30 C/HDL 3.6 Ratio 08/27/2018 Comp Metabolic Aet143 NA 143 mEq/L 08/27/2018 Comp Metabolic Ysl585 K 4.3 mEq/L 08/27/2018 Comp Metabolic Kdh665 CL 106 mEq/L 08/27/2018 Comp Metabolic Qmz387 CO2 29.0 mEq/L 08/27/2018 Comp Metabolic Spy256 ANION GAP 12 08/27/2018 Comp Metabolic Rzb518 GLUCOSE 116 mg/dL 08/27/2018 Comp Metabolic Xoh675 Creat 0.7 mg/dL 08/27/2018 Comp Metabolic Jhn653 eGFR 85 ml/min/1.73m2 08/27/2018 Comp Metabolic Fsr541 BUN 9 mg/dL 08/27/2018 Comp Metabolic Wts472 B/C Ratio 12.5 Ratio 08/27/2018 Comp Metabolic Iyi373 CALCIUM 9.4 mg/dL 08/27/2018 Comp Metabolic Azq440 ALK PHOS 86 U/L 08/27/2018 Comp Metabolic Mqm704 AST(SGOT) 29 U/L 08/27/2018 Comp Metabolic Grw541 ALT(SGPT) 56 U/L 08/27/2018 Comp Metabolic Wyg773 BILI T 0.5 mg/dL 08/27/2018 Comp Metabolic Utv847 ALBUMIN 4.1 g/dL 08/27/2018 Comp Metabolic Pal178 TPRO 6.7 g/dL 08/27/2018 Comp Metabolic Nmt906 GLOB 2.6 g/dL 08/27/2018 Comp Metabolic Laz380 A/G Ratio 1.6 Ratio 08/27/2018 Comp Metabolic Ypt873 Osmo 285 mOsmo 08/27/2018 %Hba1C Yre213 % HbA1c 85504-2 6.5 % 08/27/2018 %Hba1C Irj791 Gluc Ave 140 mg/dL 08/27/2018 Cbc With [...] 28.9 pg 08/27/2018 Cbc With Differential Ord2 [facility]% 6.9 % 08/27/2018 Cbc With Differential Ord2 [...] 2.17 K/ul 08/27/2018 Cbc With Differential Ord2 [facility] ABS# 0.5 K/ul 08/27/2018 Cbc With Differential Ord2 Eos ABS# 0.5 K/ul 08/27/2018 Cbc With Differential Ord2 Baso ABS# 0.1 K/ul 08/27/2018 %Hba1C Yta640 % HbA1c 85154-4 7.4 % 12/18/2017 %Hba1C Bpu471 Gluc Ave 166 mg/dL 12/18/2017 Cbc With [...] 28.3 pg 12/18/2017 Cbc With Differential Ord2 [facility]% 6.8 % 12/18/2017 Cbc With Differential Ord2 [...] 2.25 K/ul 12/18/2017 Cbc With Differential Ord2 [facility] ABS# 0.4 K/ul 12/18/2017 Cbc With Differential Ord2 Eos ABS# 0.5 K/ul 12/18/2017 Cbc With Differential Ord2 Baso ABS# 0.1 K/ul 12/18/2017 Microalbumin Obf012 MicroAlb <0.7 mg/dL 12/18/2017 Comp Metabolic Bns556 NA 143 mEq/L 12/18/2017 Comp Metabolic Ags724 K 4.1 mEq/L 12/18/2017 Comp Metabolic Bnf643 CL 106 mEq/L 12/18/2017 Comp Metabolic Lai321 CO2 29.0 mEq/L 12/18/2017 Comp Metabolic Zij375 ANION GAP 12 12/18/2017 Comp Metabolic Xyk326 GLUCOSE 147 mg/dL 12/18/2017 Comp Metabolic Nvd081 Creat 0.7 mg/dL 12/18/2017 Comp Metabolic Vpg816 eGFR 83 ml/min/1.73m2 12/18/2017 Comp Metabolic Bac333 BUN 11 mg/dL 12/18/2017 Comp Metabolic Jan927 B/C Ratio 14.9 Ratio 12/18/2017 Comp Metabolic Izx545 CALCIUM 9.6 mg/dL 12/18/2017 Comp Metabolic Gjc068 ALK PHOS 98 U/L 12/18/2017 Comp Metabolic Tkz026 AST(SGOT) 26 U/L 12/18/2017 Comp Metabolic Pcj745 ALT(SGPT) 48 U/L 12/18/2017 Comp Metabolic Qof610 BILI T 0.4 mg/dL 12/18/2017 Comp Metabolic Apu675 ALBUMIN 3.9 g/dL 12/18/2017 Comp Metabolic Qew261 TPRO 6.8 g/dL 12/18/2017 Comp Metabolic Qhd951 GLOB 2.9 g/dL 12/18/2017 Comp Metabolic Tdo186 A/G Ratio 1.4 Ratio 12/18/2017 Comp Metabolic Ith635 Osmo 287 mOsmo 12/18/2017 Tsh Ord6 TSH (3rd IS) 1.24 uIU/mL 12/18/2017 Lipid Ord30 CHOL 153 mg/dL 12/18/2017 Lipid Ord30 HDL 45.0 mg/dl 12/18/2017 Lipid Ord30 TRIG 163 mg/dL 12/18/2017 Lipid Ord30 LDL 75 mg/dL 12/18/2017 Lipid Ord30 C/HDL 3.4 Ratio 12/18/2017 %Hba1C Rog665 % HbA1c 87894-8 7.0 % 02/20/2017 %Hba1C Xlc090 Gluc Ave 154 mg/dL 02/20/2017 Tsh Ord6 [...] 29.1 pg 11/14/2016 Cbc With Differential Ord2 [facility]% 6.3 % 11/14/2016 Cbc With Differential Ord2 [...] 1.80 K/ul 11/14/2016 Cbc With Differential Ord2 [facility] ABS# 0.4 K/ul 11/14/2016 Cbc With Differential Ord2 Eos ABS# 0.4 K/ul 11/14/2016 Cbc With Differential Ord2 Baso ABS# 0.1 K/ul 11/14/2016 Comp Metabolic Ykx187 NA 138 mEq/L 11/14/2016 Comp Metabolic Nda517 K 4.2 mEq/L 11/14/2016 Comp Metabolic Tvm677 CL 104 mEq/L 11/14/2016 Comp Metabolic Wik288 CO2 30.0 mEq/L 11/14/2016 Comp Metabolic Mzb484 ANION GAP 8 11/14/2016 Comp Metabolic Neo966 GLUCOSE 154 mg/dL 11/14/2016 Comp Metabolic Nhi992 Creat 0.7 mg/dL 11/14/2016 Comp Metabolic Gvi225 eGFR 86 ml/min/1.73m2 11/14/2016 Comp Metabolic Fyi415 BUN 12 mg/dL 11/14/2016 Comp Metabolic Iza436 B/C Ratio 16.7 Ratio 11/14/2016 Comp Metabolic Ylv849 CALCIUM 10.0 mg/dL 11/14/2016 Comp Metabolic Yrt111 ALK PHOS 103 U/L 11/14/2016 Comp Metabolic Rky198 AST(SGOT) 27 U/L 11/14/2016 Comp Metabolic Bmv447 ALT(SGPT) 50 U/L 11/14/2016 Comp Metabolic Wdt250 BILI T 0.4 mg/dL 11/14/2016 Comp Metabolic Ypi823 ALBUMIN 4.4 g/dL 11/14/2016 Comp Metabolic Fgs720 TPRO 7.4 g/dL 11/14/2016 Comp Metabolic Xwb034 GLOB 3.0 g/dL 11/14/2016 Comp Metabolic Gbs760 A/G Ratio 1.5 Ratio 11/14/2016 Comp Metabolic Soo107 Osmo 279 mOsmo 11/14/2016 Free T4 Bnk927 FREE T4 0.86 ng/dL 11/14/2016 Lipid Ord30 CHOL 164 mg/dL 11/14/2016 Lipid Ord30 HDL 49.0 mg/dl 11/14/2016 Lipid Ord30 TRIG 130 mg/dL 11/14/2016 Lipid Ord30 LDL 89 mg/dL 11/14/2016 Lipid Ord30 C/HDL 3.3 Ratio 11/14/2016 Total T3 Ord42 TT3 1.32 ng/ml 11/14/2016 %Hba1C Zzd151 % HbA1c 08396-0 7.0 % 11/14/2016 %Hba1C Dij945 Gluc Ave 154 mg/dL 11/14/2016 Comp Metabolic Xsu187 NA 136 mEq/L 07/24/2016 Comp Metabolic Wfn140 K 4.1 mEq/L 07/24/2016 Comp Metabolic Kij426 CL 102 mEq/L 07/24/2016 Comp Metabolic Xwr413 CO2 28.0 mEq/L 07/24/2016 Comp Metabolic Key374 ANION GAP 10 07/24/2016 Comp Metabolic Gsa314 GLUCOSE 211 mg/dL 07/24/2016 Comp Metabolic Myy057 Creat 0.7 mg/dL 07/24/2016 Comp Metabolic Qli243 eGFR 95 ml/min/1.73m2 07/24/2016 Comp Metabolic Yia551 BUN 14 mg/dL 07/24/2016 Comp Metabolic Trn841 B/C Ratio 21.2 Ratio 07/24/2016 Comp Metabolic Vxy037 CALCIUM 9.5 mg/dL 07/24/2016 Comp Metabolic Wnj388 ALK PHOS 93 U/L 07/24/2016 Comp Metabolic Erp143 AST(SGOT) 17 U/L 07/24/2016 Comp Metabolic Nsh539 ALT(SGPT) 40 U/L 07/24/2016 Comp Metabolic Rtq729 BILI T 0.3 mg/dL 07/24/2016 Comp Metabolic Krp238 ALBUMIN 4.2 g/dL 07/24/2016 Comp Metabolic Bdb184 TPRO 7.2 g/dL 07/24/2016 Comp Metabolic Prt443 GLOB 3.0 g/dL 07/24/2016 Comp Metabolic Ojb380 A/G Ratio 1.4 Ratio 07/24/2016 Comp Metabolic Cpk684 Osmo 279 mOsmo 07/24/2016 Tsh Ord6 hTSH II 0.44 uIU/mL 07/24/2016 %Hba1C Stm245 % HbA1c 72842-3 7.1 % 07/24/2016 %Hba1C Omg110 Gluc Ave 157 mg/dL 07/24/2016 Cbc With [...] 29.1 pg 07/24/2016 Cbc With Differential Ord2 [facility]% 7.7 % 07/24/2016 Cbc With Differential Ord2 [...] 2.11 K/ul 07/24/2016 Cbc With Differential Ord2 [facility] ABS# 0.5 K/ul 07/24/2016 Cbc With Differential [...] Code : 8480-6 BMI: 31.1 Code : 66962-3 Heart Rate 1 : 95 bpm Height: 5' SpO2: 98% Weight: 159 lbs 02/26/2018 Blood Pressure 1: 124/80 Code : 8480-6 BMI: 31.6 Code : 21004-8 Heart Rate 1 : 89 bpm Height: 5' SpO2: 95% Waist Measure (cm): 102 cm Weight: 162 lbs 12/15/2017 Blood Pressure 1: 122/76 Code : 8480-6 BMI: 32.2 Code : 70083-9 Heart Rate 1 : 90 bpm Height: 5' SpO2: 97% Weight: 165 lbs 08/10/2017 Blood Pressure 1: 116/72 Code : 8480-6 BMI: 31.4 Code : 04580-7 Heart Rate 1 : 95 bpm Height: 5' SpO2: 96% Weight: 161 lbs 02/20/2017 Blood Pressure 1: 134/76 Code : 8480-6 BMI: 31.1 Code : 70306-6 Heart Rate 1 : 90 bpm Height: 5' SpO2: 93% Waist Measure (cm): 91 cm Weight: 159 lbs 02/10/2017 Blood Pressure 1: 132/80 Code : 8480-6 BMI: 31.1 Code : 45406-1 Heart Rate 1 : 93 bpm Height: 5' SpO2: 96% Weight: 159 lbs 07/24/2016 Blood Pressure 1: 130/72 Code : 8480-6 BMI: 32.6 Code : 07173-6 Heart Rate 1 : 86 bpm Height: [...] data Encounters Encounter Performer Location Codes Date ([id number]) [id number] EST. PATIENT, LEVEL III Diagnosis: Type 2 diabetes mellitus without complications[ICD10: E11.9] Diagnosis: Rash and other nonspecific skin eruption[ICD10: R21] Nadia Benavides MD, [facility] CPT-4: 83866 08/23/2018 ([id number]) 41930 EST. PATIENT, LEVEL III Diagnosis: Type 2 diabetes mellitus without complications[ICD10: E11.9] Diagnosis: Gastro-esophageal reflux disease without esophagitis[ICD10: K21.9] Diagnosis: Primary central sleep apnea[ICD10: G47.31] Krystal Benavides MD, [facility] CPT-4: 15547 12/15/2017 [id number]) [id number] EST. PATIENT, LEVEL IV Diagnosis: Dysphagia, pharyngeal phase[ICD10: R13.13] Diagnosis: Type 2 diabetes mellitus without complications[ICD10: E11.9] Krystal Benavides MD, [facility] CPT-4: 54286 08/10/2017 [id number]) [id number] EST. PATIENT, LEVEL IV Diagnosis: Type 2 diabetes mellitus without complications[ICD10: E11.9] Diagnosis: Encounter for screening mammogram for malignant neoplasm of breast[ ICD10: Z12.31] Krystal Benavides MD, [facility] CPT-4: 20381 02/10/2017 ([id number]) OFFICE VISIT, NEW - LEVEL 3 Diagnosis: Type 2 diabetes mellitus without complications[ICD10: E11.9] Diagnosis: Obstructive sleep apnea (adult) (pediatric)[ICD10: G47.33] Diagnosis: Personal history of colonic polyps[ICD10: Z86.010] Nadia Benavides MD, [facility] CPT-4: 25379 07/24/2016 Plan of Care Planned Activity Notes Codes Status Date Visit Plan: Rash -hands and feet -suspect fungal -continue with clotrimazole/betamethasone cream as directed -call in 1 week with update if not improving DM-check labs 08/23/2018 Appointment: Nadia Lin WPtel: [address] [place], [place] [phone] (15 min) Moderate 08/23/2018 Patient Education: Patient [...] care surrogate. 02/26/2018 Appointment: Ni Green WPtel: [facility] - Annual Wellness Visit 02/26/2018 Patient Education: [...] with PPI 12/15/2017 Appointment: Krystal Benavides WPtel: [facility] (15 min) Moderate 12/15/2017 Patient Education: Patient Medication Summary Completed 12/15/2017 Referral: Abel Weinstein [address] [facility] Patient informed. Referral info faxed. Completed 08/18/2017 Appointment: Krystal Benavides WPtel: [facility] (15 min) Moderate 08/13/2017 Visit Plan: [...] during egd. 08/10/2017 Appointment: Krystal Benavides WPtel: [phone] [facility] (15 min) Moderate 08/10/2017 Patient Education: Patient Medication Summary Completed 08/10/2017 Patient Education: Obesity Completed 08/10/2017 Care Plan: Referral Order SNOMED-CT : [id number] Pending 08/10/2017 Visit Plan: Medicare Exam - [...] care surrogate. 02/20/2017 [facility]ment[phone] [facility] Wellness [facility] 02/20/2017 Patient Education: [...] mammogram 02/10/2017 Appointment: Krystal Benavides WPtel: [phone] [facility] (15 min) Moderate 02/10/2017 Patient Education: Patient Medication Summary Completed 02/10/2017 Patient Education: Obesity Completed 02/10/2017 Appointment: Krystal Benavides WPtel: [phone] [facility] [place] (15 min) Moderate 01/22/2017 Visit Plan: Diabetes [...] 07/24/2016 Referral: Abel Weinstein [address] [facility] Referral Appointment Requested Instructions Comment . [...] week before next follow up appt [facility] - Dr. Morales Freeman . Diabetes [...]
--- OUTSIDE RECORDS SUMMARY | 2019-01-13 12:52 | XMS REPORT | CCD ---
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 [employer] 02/26/2018 Marital status Unknown Raúl 07/24/2016 Number of children Unknown 10 2 07/24/[address]: 6795143 Former smoker quit 2005 07/24/[address]: 709560134 Never drinks alcohol 07/24/2016 Allergies, Adverse Reactions, [...] Fill Instructions metformin 1,000 mg tablet RxNorm: 052604 TAKE ONE TABLET BY MOUTH TWICE A DAY 11/17/2018 05/15/2019 Active betamethasone valerate 0.1 % topical cream RxNorm: 347122 1 Application TOP BID 09/06/2018 09/05/2018 Inactive betamethasone valerate 0.1 % topical cream RxNorm: 900604 1 Application TOP BID 09/06/2018 09/06/2018 Inactive Diflucan 150 mg tablet RxNorm: 488247 1 Tablet(s) PO daily 09/12/2018 Inactive ketoconazole 2 % topical cream RxNorm: 858187 1 Application TOP BID 09/06/2018 09/19/2018 Inactive Diflucan 150 mg tablet RxNorm: 108833 1 Tablet(s) PO daily 09/05/2018 Inactive ketoconazole 2 % topical cream RxNorm: 769002 1 Application TOP BID 09/06/2018 09/05/2018 Inactive metformin 1,000 mg tablet RxNorm: 712702 TAKE ONE TABLET BY MOUTH TWICE A DAY 08/18/2018 11/15/2018 Inactive metformin 1,000 mg tablet RxNorm: 634069 Tablet(s) PO TAKE ONE TABLET BY MOUTH TWICE A DAY 01/13/2018 05/12/2018 Inactive metformin 1,000 mg tablet RxNorm: 715204 Tablet(s) PO TAKE ONE TABLET BY MOUTH TWICE A DAY 01/11/2018 01/12/2018 Inactive metformin 1,000 mg tablet RxNorm: 745871 1 Tablet(s) PO BID 11/201701/17/2018 Inactive metformin 500 mg tablet RxNorm: 926212 TAKE ONE TABLET BY MOUTH TWICE A DAY 10/30/2017 01/10/2018 Inactive Pepcid 20 mg tablet RxNorm: 025133 1 Tablet(s) PO BID 201603/07/2018 Inactive metformin 500 mg tablet RxNorm: 014504 TAKE ONE TABLET BY MOUTH TWICE A DAY 08/04/2017 10/29/2017 Inactive metformin 500 mg tablet RxNorm: 529679 TAKE ONE TABLET BY MOUTH TWICE A DAY 08/04/2017 12/23/2017 Inactive metformin 500 mg tablet RxNorm: 608454 1 Tablet(s) PO BID 12/2307/20/2017 Inactive metformin 500 mg tablet RxNorm: 026951 1 Tablet(s) PO BID 08/0712/22/2016 Inactive Tylenol PM Extra Strength 25 mg-500 mg tablet RxNorm: 9388310 1 Tablet(s) PO QHS No Start Date Active Hair,Nails and Skin Vitamin oral RxNorm: 78135 oral No Start Date Active metformin 500 mg tablet RxNorm: 185627 1 Tablet(s) PO BID No Start Date [...] Ord30 C/HDL 3.6 Ratio 08/27/2018 Comp Metabolic Qga477 NA 143 mEq/L 08/27/2018 Comp Metabolic Epf077 K 4.3 mEq/L 08/27/2018 Comp Metabolic Szy232 CL 106 mEq/L 08/27/2018 Comp Metabolic Loa440 CO2 29.0 mEq/L 08/27/2018 Comp Metabolic Nzm800 ANION GAP 12 08/27/2018 Comp Metabolic Sow343 GLUCOSE 116 mg/dL 08/27/2018 Comp Metabolic Vtw831 Creat 0.7 mg/dL 08/27/2018 Comp Metabolic Tug211 eGFR 85 ml/min/1.73m2 08/27/2018 Comp Metabolic Njm569 BUN 9 mg/dL 08/27/2018 Comp Metabolic Nui421 B/C Ratio 12.5 Ratio 08/27/2018 Comp Metabolic Tcz606 CALCIUM 9.4 mg/dL 08/27/2018 Comp Metabolic Qid058 ALK PHOS 86 U/L 08/27/2018 Comp Metabolic Nex644 AST(SGOT) 29 U/L 08/27/2018 Comp Metabolic Jer803 ALT(SGPT) 56 U/L 08/27/2018 Comp Metabolic Ytd498 BILI T 0.5 mg/dL 08/27/2018 Comp Metabolic Pfm646 ALBUMIN 4.1 g/dL 08/27/2018 Comp Metabolic Dhj058 TPRO 6.7 g/dL 08/27/2018 Comp Metabolic Rfz982 GLOB 2.6 g/dL 08/27/2018 Comp Metabolic Bmo350 A/G Ratio 1.6 Ratio 08/27/2018 Comp Metabolic Plz755 Osmo 285 mOsmo 08/27/2018 %Hba1C Eyd825 % HbA1c 14461-8 6.5 % 08/27/2018 %Hba1C Iqr890 Gluc Ave 140 mg/dL 08/27/2018 Cbc With [...] 28.9 pg 08/27/2018 Cbc With Differential Ord2 [place]% 6.9 % 08/27/2018 Cbc With Differential Ord2 [...] 2.17 K/ul 08/27/2018 Cbc With Differential Ord2 [place] ABS# 0.5 K/ul 08/27/2018 Cbc With Differential Ord2 Eos ABS# 0.5 K/ul 08/27/2018 Cbc With Differential Ord2 Baso ABS# 0.1 K/ul 08/27/2018 %Hba1C Zgf001 % HbA1c 81907-1 7.4 % 12/18/2017 %Hba1C Adl053 Gluc Ave 166 mg/dL 12/18/2017 Cbc With [...] 28.3 pg 12/18/2017 Cbc With Differential Ord2 [place]% 6.8 % 12/18/2017 Cbc With Differential Ord2 [...] 2.25 K/ul 12/18/2017 Cbc With Differential Ord2 [place] ABS# 0.4 K/ul 12/18/2017 Cbc With Differential Ord2 Eos ABS# 0.5 K/ul 12/18/2017 Cbc With Differential Ord2 Baso ABS# 0.1 K/ul 12/18/2017 Microalbumin Cwa163 MicroAlb <0.7 mg/dL 12/18/2017 Comp Metabolic Qee237 NA 143 mEq/L 12/18/2017 Comp Metabolic Wnz835 K 4.1 mEq/L 12/18/2017 Comp Metabolic Kui068 CL 106 mEq/L 12/18/2017 Comp Metabolic Vzc972 CO2 29.0 mEq/L 12/18/2017 Comp Metabolic Kev757 ANION GAP 12 12/18/2017 Comp Metabolic Ayh105 GLUCOSE 147 mg/dL 12/18/2017 Comp Metabolic Tgc208 Creat 0.7 mg/dL 12/18/2017 Comp Metabolic Gfo353 eGFR 83 ml/min/1.73m2 12/18/2017 Comp Metabolic Oum745 BUN 11 mg/dL 12/18/2017 Comp Metabolic Xxe630 B/C Ratio 14.9 Ratio 12/18/2017 Comp Metabolic Xzs054 CALCIUM 9.6 mg/dL 12/18/2017 Comp Metabolic Wak840 ALK PHOS 98 U/L 12/18/2017 Comp Metabolic Fqe226 AST(SGOT) 26 U/L 12/18/2017 Comp Metabolic Udj447 ALT(SGPT) 48 U/L 12/18/2017 Comp Metabolic Tnx093 BILI T 0.4 mg/dL 12/18/2017 Comp Metabolic Fch992 ALBUMIN 3.9 g/dL 12/18/2017 Comp Metabolic Pgi863 TPRO 6.8 g/dL 12/18/2017 Comp Metabolic Vqf352 GLOB 2.9 g/dL 12/18/2017 Comp Metabolic Lne095 A/G Ratio 1.4 Ratio 12/18/2017 Comp Metabolic Lkw243 Osmo 287 mOsmo 12/18/2017 Tsh Ord6 TSH (3rd IS) 1.24 uIU/mL 12/18/2017 Lipid Ord30 CHOL 153 mg/dL 12/18/2017 Lipid Ord30 HDL 45.0 mg/dl 12/18/2017 Lipid Ord30 TRIG 163 mg/dL 12/18/2017 Lipid Ord30 LDL 75 mg/dL 12/18/2017 Lipid Ord30 C/HDL 3.4 Ratio 12/18/2017 %Hba1C Hut783 % HbA1c 94780-1 7.0 % 02/20/2017 %Hba1C Gkz316 Gluc Ave 154 mg/dL 02/20/2017 Tsh Ord6 [...] 29.1 pg 11/14/2016 Cbc With Differential Ord2 [place]% 6.3 % 11/14/2016 Cbc With Differential Ord2 [...] 1.80 K/ul 11/14/2016 Cbc With Differential Ord2 [place] ABS# 0.4 K/ul 11/14/2016 Cbc With Differential Ord2 Eos ABS# 0.4 K/ul 11/14/2016 Cbc With Differential Ord2 Baso ABS# 0.1 K/ul 11/14/2016 Comp Metabolic Zkq954 NA 138 mEq/L 11/14/2016 Comp Metabolic Buf350 K 4.2 mEq/L 11/14/2016 Comp Metabolic Tpc469 CL 104 mEq/L 11/14/2016 Comp Metabolic Obk101 CO2 30.0 mEq/L 11/14/2016 Comp Metabolic Msr424 ANION GAP 8 11/14/2016 Comp Metabolic Nsk692 GLUCOSE 154 mg/dL 11/14/2016 Comp Metabolic Ooz135 Creat 0.7 mg/dL 11/14/2016 Comp Metabolic Fes412 eGFR 86 ml/min/1.73m2 11/14/2016 Comp Metabolic Hgp287 BUN 12 mg/dL 11/14/2016 Comp Metabolic Vhf919 B/C Ratio 16.7 Ratio 11/14/2016 Comp Metabolic Uwp009 CALCIUM 10.0 mg/dL 11/14/2016 Comp Metabolic Vnu654 ALK PHOS 103 U/L 11/14/2016 Comp Metabolic Qby978 AST(SGOT) 27 U/L 11/14/2016 Comp Metabolic Tab835 ALT(SGPT) 50 U/L 11/14/2016 Comp Metabolic Vmv317 BILI T 0.4 mg/dL 11/14/2016 Comp Metabolic Jkk680 ALBUMIN 4.4 g/dL 11/14/2016 Comp Metabolic Abf693 TPRO 7.4 g/dL 11/14/2016 Comp Metabolic Und455 GLOB 3.0 g/dL 11/14/2016 Comp Metabolic Upk944 A/G Ratio 1.5 Ratio 11/14/2016 Comp Metabolic Blm463 Osmo 279 mOsmo 11/14/2016 Free T4 Iod790 FREE T4 0.86 ng/dL 11/14/2016 Lipid Ord30 CHOL 164 mg/dL 11/14/2016 Lipid Ord30 HDL 49.0 mg/dl 11/14/2016 Lipid Ord30 TRIG 130 mg/dL 11/14/2016 Lipid Ord30 LDL 89 mg/dL 11/14/2016 Lipid Ord30 C/HDL 3.3 Ratio 11/14/2016 Total T3 Ord42 TT3 1.32 ng/ml 11/14/2016 %Hba1C Krl764 % HbA1c 04674-3 7.0 % 11/14/2016 %Hba1C Gka311 Gluc Ave 154 mg/dL 11/14/2016 Comp Metabolic Tgr236 NA 136 mEq/L 07/24/2016 Comp Metabolic Mxk837 K 4.1 mEq/L 07/24/2016 Comp Metabolic Kcj435 CL 102 mEq/L 07/24/2016 Comp Metabolic Oev499 CO2 28.0 mEq/L 07/24/2016 Comp Metabolic Lec253 ANION GAP 10 07/24/2016 Comp Metabolic Hlf736 GLUCOSE 211 mg/dL 07/24/2016 Comp Metabolic Iwx032 Creat 0.7 mg/dL 07/24/2016 Comp Metabolic Ptz639 eGFR 95 ml/min/1.73m2 07/24/2016 Comp Metabolic Hhq022 BUN 14 mg/dL 07/24/2016 Comp Metabolic Fcv492 B/C Ratio 21.2 Ratio 07/24/2016 Comp Metabolic Wis734 CALCIUM 9.5 mg/dL 07/24/2016 Comp Metabolic Rst846 ALK PHOS 93 U/L 07/24/2016 Comp Metabolic Uto060 AST(SGOT) 17 U/L 07/24/2016 Comp Metabolic Fxy803 ALT(SGPT) 40 U/L 07/24/2016 Comp Metabolic Bcy241 BILI T 0.3 mg/dL 07/24/2016 Comp Metabolic Ean687 ALBUMIN 4.2 g/dL 07/24/2016 Comp Metabolic Nol244 TPRO 7.2 g/dL 07/24/2016 Comp Metabolic Fef998 GLOB 3.0 g/dL 07/24/2016 Comp Metabolic Cse433 A/G Ratio 1.4 Ratio 07/24/2016 Comp Metabolic Ecc128 Osmo 279 mOsmo 07/24/2016 Tsh Ord6 hTSH II 0.44 uIU/mL 07/24/2016 %Hba1C Etp900 % HbA1c 52512-8 7.1 % 07/24/2016 %Hba1C Vkb734 Gluc Ave 157 mg/dL 07/24/2016 Cbc With [...] 29.1 pg 07/24/2016 Cbc With Differential Ord2 [place]% 7.7 % 07/24/2016 Cbc With Differential Ord2 [...] 2.11 K/ul 07/24/2016 Cbc With Differential Ord2 [place] ABS# 0.5 K/ul 07/24/2016 Cbc With Differential [...] Code : 8480-6 BMI: 31.1 Code : 31396-4 Heart Rate 1 : 95 bpm Height: 5' SpO2: 98% Weight: 159 lbs 02/26/2018 Blood Pressure 1: 124/80 Code : 8480-6 BMI: 31.6 Code : 15863-2 Heart Rate 1 : 89 bpm Height: 5' SpO2: 95% Waist Measure (cm): 102 cm Weight: 162 lbs 12/15/2017 Blood Pressure 1: 122/76 Code : 8480-6 BMI: 32.2 Code : 72650-8 Heart Rate 1 : 90 bpm Height: 5' SpO2: 97% Weight: 165 lbs 08/10/2017 Blood Pressure 1: 116/72 Code : 8480-6 BMI: 31.4 Code : 41114-5 Heart Rate 1 : 95 bpm Height: 5' SpO2: 96% Weight: 161 lbs 02/20/2017 Blood Pressure 1: 134/76 Code : 8480-6 BMI: 31.1 Code : 45151-5 Heart Rate 1 : 90 bpm Height: 5' SpO2: 93% Waist Measure (cm): 91 cm Weight: 159 lbs 02/10/2017 Blood Pressure 1: 132/80 Code : 8480-6 BMI: 31.1 Code : 38161-9 Heart Rate 1 : 93 bpm Height: 5' SpO2: 96% Weight: 159 lbs 07/24/2016 Blood Pressure 1: 130/72 Code : 8480-6 BMI: 32.6 Code : 44401-2 Heart Rate 1 : 86 bpm Height: [...] data Encounters Encounter Performer Location Codes Date ([id number]) [id number] EST. PATIENT, LEVEL III Diagnosis: Type 2 diabetes mellitus without complications[ICD10: E11.9] Diagnosis: Rash and other nonspecific skin eruption[ICD10: R21] Nadia Benavides MD, [facility] CPT-4: 22858 08/23/2018 ([id number]) [id number] EST. PATIENT, LEVEL III Diagnosis: Type 2 diabetes mellitus without complications[ICD10: E11.9] Diagnosis: Gastro-esophageal reflux disease without esophagitis[ICD10: K21.9] Diagnosis: Primary central sleep apnea[ICD10: G47.31] [facility] CPT-4: 34842 12/15/2017 [id number]) [id number] EST. PATIENT, LEVEL IV Diagnosis: Dysphagia, pharyngeal phase[ICD10: R13.13] Diagnosis: Type 2 diabetes mellitus without complications[ICD10: E11.9] [facility] CPT-4: 08257 08/10/2017 ([id number]) 90640 EST. PATIENT, LEVEL IV Diagnosis: Type 2 diabetes mellitus without complications[ICD10: E11.9] Diagnosis: Encounter for screening mammogram for malignant neoplasm of breast[ ICD10: Z12.31] [facility] CPT-4: 51439 02/10/2017 ([id number]) OFFICE VISIT, NEW - LEVEL 3 Diagnosis: Type 2 diabetes mellitus without complications[ICD10: E11.9] Diagnosis: Obstructive sleep apnea (adult) (pediatric)[ICD10: G47.33] Diagnosis: Personal history of colonic polyps[ICD10: Z86.010] [facility] CPT-4: 44371 07/24/2016 Plan of Care Planned Activity Notes Codes Status Date Visit Plan: Rash -hands and feet -suspect fungal -continue with clotrimazole/betamethasone cream as directed -call in 1 week with update if not improving DM-check labs 08/23/2018 Appointment: Nadia Lin WPtel: [address] [place], [place] [phone] (15 min) Moderate 08/23/2018 Patient Education: Patient [...] care surrogate. 02/26/2018 Appointment: Ni Green WPtel: [facility] [place] [address] - Annual Wellness Visit 02/26/2018 Patient [...] with PPI 12/15/2017 Appointment: Krystal Benavides WPtel: [facility] [place] [address] (15 min) Moderate 12/15/2017 Patient Education: Patient Medication Summary Completed 12/15/2017 Referral: Abel Weinstein [address] [facility] Patient informed. Referral info faxed. Completed 08/18/2017 Appointment: Krystal Benavides WPtel: [phone] (15 min) Moderate 08/13/2017 Visit Plan: Diabetes [...] during egd. 08/10/2017 Appointment: Krystal Benavides WPtel: [phone] [facility] (15 min) Moderate 08/10/2017 Patient Education: Patient Medication Summary Completed 08/10/2017 Patient Education: Obesity Completed 08/10/2017 Care Plan: Referral Order SNOMED-CT : [id number] Pending 08/10/2017 Visit Plan: Medicare Exam - [...] care surrogate. 02/20/2017 Appointment: Ni Green WPtel: [phone] [facility] [facility] - Annual Wellness Visit 02/20/2017 Patient Education: [...] complaint - RX for mammogram 02/10/2017 Appointment: rKystal Benavides WPtel: [phone] [facility] (15 min) Moderate 02/10/2017 Patient Education: Patient [...] 07/24/2016 Referral: Abel Weinstein [address] [facility] Referral Appointment Requested Instructions Comment . [...]
--- OUTSIDE RECORDS SUMMARY | 2019-01-13 12:52 | XMS REPORT | CCD ---
Author Author Nadia Lin MD, [facility] Address [address] [place] [address] Phone Care Team Providers Care Art Gallery Director Name Role Phone PP Unavailable CCM Unavailable Summary Purpose Interface Exchange Insurance Providers Payer name Policy type / Coverage type Covered alliance party ID Effective Begin Date Effective End Date WPS Medicare Part B Medicare Part B [id number] Unknown Unknown [facility] Medicare Part B [id number] Unknown Unknown Family history Daughter Diagnosis Age At [...] Social History Element Codes Description Effective Dates Marital status Unknown Raúl 07/24/2016 Number of children Unknown 10 2 07/24/[address]: 2908184 Former smoker quit 2005 07/24/[address]: 341017522 Never drinks alcohol 07/24/2016 Allergies, Adverse Reactions, Alerts Substance Reaction Codes Entered Date Inactivated Date Status aspirin hives RxNorm: 1191 07/24/2016 No Inactive Date Active IV DYE, IODINE CONTAINING hives Unknown 07/24/2016 No Inactive Date Active Past Medical History Illness Codes Condition Status Onset Date Resolved Date Gastro-esophageal reflux disease without esophagitis ICD-9: 530.81 ICD-10: K21.9 Active 12/15/2017 Unknown Primary central sleep apnea ICD-9: 327.22 ICD-10: G47.31 Active 12/15/2017 Unknown Type 2 diabetes mellitus without complications ICD-9: 250.00 ICD-10: E11.9 Active 07/23/2016 Unknown Diabetes Unknown Active 08/10/2017 Unknown Dysphagia, pharyngeal phase ICD-9: 787.23 ICD-10: R13.13 Active 08/10/2017 Unknown Encounter for general adult medical examination with abnormal findings ICD-9: V70.0 ICD-10: Z00.01 Active 02/20/2017 Unknown Encounter for screening mammogram for malignant neoplasm of breast ICD-9: V76.12 ICD-10: Z12.31 Active 02/10/2017 Unknown sleep apnea Unknown Active 07/24/2016 Unknown Torticollis Unknown Active 1950 Unknown Obstructive sleep apnea (adult) (pediatric) ICD-9: 327.23 ICD-10: G47.33 Active 07/23/2016 Unknown Personal history of colonic polyps ICD-9: V12.72 ICD-10: Z86.010 Active 07/23/2016 Unknown Problems Condition Codes Effective Dates Condition Status Gastro-esophageal reflux disease without esophagitis ICD-9: 530.81 ICD-10: K21.9 12/15/2017 Active Primary central sleep apnea ICD-9: 327.22 ICD-10: G47.31 12/15/2017 Active Type 2 diabetes mellitus without complications ICD-9: 250.00 ICD-10: E11.9 07/23/2016 Active Diabetes Unknown 08/10/2017 Active Dysphagia, pharyngeal phase ICD-9: 787.23 ICD-10: R13.13 08/10/2017 Active Encounter for general adult medical examination with abnormal findings ICD-9: V70.0 ICD-10: Z00.01 02/20/2017 Active Encounter for screening mammogram for malignant neoplasm of breast ICD-9: V76.12 ICD-10: Z12.31 02/10/2017 Active sleep apnea Unknown 07/24/2016 Active Torticollis Unknown 1950 Active Obstructive sleep apnea (adult) (pediatric) ICD-9: 327.23 ICD-10: G47.33 07/23/2016 Active Personal history of colonic polyps ICD-9: V12.72 ICD-10: Z86.010 07/23/2016 Active Medications Medication Codes Instructions Start Date Stop Date Status Fill Instructions metformin 500 mg tablet RxNorm: 898250 TAKE ONE TABLET BY MOUTH TWICE A DAY 10/30/2017 04/27/2018 Active Pepcid 20 mg tablet RxNorm: 483491 1 Tablet(s) PO BID 201603/07/2018 Active metformin 500 mg tablet RxNorm: 221358 TAKE ONE TABLET BY MOUTH TWICE A DAY 08/04/2017 01/25/2019 Active metformin 500 mg tablet RxNorm: 152952 TAKE ONE TABLET BY MOUTH TWICE A DAY 08/04/2017 10/29/2017 Inactive metformin 500 mg tablet RxNorm: 708906 1 Tablet(s) PO BID 12/2307/20/2017 Inactive metformin 500 mg tablet RxNorm: 628903 1 Tablet(s) PO BID 08/0712/22/2016 Inactive metformin 500 mg tablet RxNorm: 143049 1 Tablet(s) PO BID No Start Date 08/06/2016 Inactive Medication Administered No Medication Administered data Immunizations No Immunization data Assessments Condition Codes Effective Dates Type 2 diabetes mellitus without complications ICD-10: E11.9 ICD-9: 250.00 12/15/2017 Primary central sleep apnea ICD-10: G47.31 ICD-9: 327.22 12/15/2017 Gastro-esophageal reflux disease without esophagitis ICD-10 : K21.9 ICD-9: 530.81 12/15/2017 Dysphagia, pharyngeal phase ICD-10: R13.13 ICD-9: 787.23 08/10/2017 Encounter for general adult medical examination with abnormal findings ICD-10: Z00.01 ICD-9: V70.0 02/20/2017 Encounter for screening mammogram for malignant neoplasm of breast ICD-10: Z12.31 ICD-9: V76.12 02/10/2017 Obstructive sleep apnea (adult) (pediatric) ICD-10: G47.33 ICD-9: 327.23 07/24/2016 Personal history of colonic polyps ICD-10: Z86.010 ICD-9: V12.72 07/24/2016 Reason For Visit Reason For Visit Effective Dates Notes diabetes mellitus 12/15/2017 diabetes mellitus 08/10/2017 Annual Medicare Wellness Exam 02/20/2017 diabetes mellitus 02/10/2017 diabetes mellitus 07/24/2016 Results Observation Observation Code Item Item Code Result Date %Hba1C Qwn551 % HbA1c 26233-2 7.0 % 02/20/2017 %Hba1C Suh413 Gluc Ave 154 mg/dL 02/20/2017 Tsh Ord6 hTSH II 0.51 uIU/mL 11/14/2016 Cbc With Differential Ord2 WBC 5.89 K/ul 11/14/2016 Cbc With Differential Ord2 RBC 5.12 M/ul 11/14/2016 Cbc With Differential Ord2 HGB 14.9 g/dl 11/14/2016 Cbc With Differential Ord2 HCT 45.6 % 11/14/2016 Cbc With Differential Ord2 Neut% 56.0 % 11/14/2016 Cbc With Differential Ord2 MCV 89.1 fl 11/14/2016 Cbc With Differential Ord2 Lymph% 30.6 % 11/14/2016 Cbc With Differential Ord2 MCH 29.1 pg 11/14/2016 Cbc With Differential Ord2 [place]% 6.3 % 11/14/2016 Cbc With Differential Ord2 [...] 1.80 K/ul 11/14/2016 Cbc With Differential Ord2 [place] ABS# 0.4 K/ul 11/14/2016 Cbc With Differential Ord2 Eos ABS# 0.4 K/ul 11/14/2016 Cbc With Differential Ord2 Baso ABS# 0.1 K/ul 11/14/2016 Comp Metabolic Zjz628 NA 138 mEq/L 11/14/2016 Comp Metabolic Vok414 K 4.2 mEq/L 11/14/2016 Comp Metabolic Plv641 CL 104 mEq/L 11/14/2016 Comp Metabolic Hle307 CO2 30.0 mEq/L 11/14/2016 Comp Metabolic Zzp686 ANION GAP 8 11/14/2016 Comp Metabolic Qcc824 GLUCOSE 154 mg/dL 11/14/2016 Comp Metabolic Oio003 Creat 0.7 mg/dL 11/14/2016 Comp Metabolic Rhe971 eGFR 86 ml/min/1.73m2 11/14/2016 Comp Metabolic Har428 BUN 12 mg/dL 11/14/2016 Comp Metabolic Rmb662 B/C Ratio 16.7 Ratio 11/14/2016 Comp Metabolic Qms454 CALCIUM 10.0 mg/dL 11/14/2016 Comp Metabolic Cfx632 ALK PHOS 103 U/L 11/14/2016 Comp Metabolic Aki719 AST(SGOT) 27 U/L 11/14/2016 Comp Metabolic Wbn000 ALT(SGPT) 50 U/L 11/14/2016 Comp Metabolic Lju332 BILI T 0.4 mg/dL 11/14/2016 Comp Metabolic Ewz479 ALBUMIN 4.4 g/dL 11/14/2016 Comp Metabolic Ssx024 TPRO 7.4 g/dL 11/14/2016 Comp Metabolic Dfu249 GLOB 3.0 g/dL 11/14/2016 Comp Metabolic Mal065 A/G Ratio 1.5 Ratio 11/14/2016 Comp Metabolic Cku501 Osmo 279 mOsmo 11/14/2016 Free T4 Bkj400 FREE T4 0.86 ng/dL 11/14/2016 Lipid Ord30 CHOL 164 mg/dL 11/14/2016 Lipid Ord30 HDL 49.0 mg/dl 11/14/2016 Lipid Ord30 TRIG 130 mg/dL 11/14/2016 Lipid Ord30 LDL 89 mg/dL 11/14/2016 Lipid Ord30 C/HDL 3.3 Ratio 11/14/2016 Total T3 Ord42 TT3 1.32 ng/ml 11/14/2016 %Hba1C Wfm153 % HbA1c 80704-8 7.0 % 11/14/2016 %Hba1C Fsc706 Gluc Ave 154 mg/dL 11/14/2016 Comp Metabolic Njo937 NA 136 mEq/L 07/24/2016 Comp Metabolic Drz209 K 4.1 mEq/L 07/24/2016 Comp Metabolic Eru453 CL 102 mEq/L 07/24/2016 Comp Metabolic Bgs802 CO2 28.0 mEq/L 07/24/2016 Comp Metabolic Ljo389 ANION GAP 10 07/24/2016 Comp Metabolic Zan288 GLUCOSE 211 mg/dL 07/24/2016 Comp Metabolic Vhj881 Creat 0.7 mg/dL 07/24/2016 Comp Metabolic Nvx395 eGFR 95 ml/min/1.73m2 07/24/2016 Comp Metabolic Mfm721 BUN 14 mg/dL 07/24/2016 Comp Metabolic Zux484 B/C Ratio 21.2 Ratio 07/24/2016 Comp Metabolic Cbl770 CALCIUM 9.5 mg/dL 07/24/2016 Comp Metabolic Wmh445 ALK PHOS 93 U/L 07/24/2016 Comp Metabolic Wjq266 AST(SGOT) 17 U/L 07/24/2016 Comp Metabolic Mzs393 ALT(SGPT) 40 U/L 07/24/2016 Comp Metabolic Anu950 BILI T 0.3 mg/dL 07/24/2016 Comp Metabolic Bwq936 ALBUMIN 4.2 g/dL 07/24/2016 Comp Metabolic Ueq182 TPRO 7.2 g/dL 07/24/2016 Comp Metabolic Aym650 GLOB 3.0 g/dL 07/24/2016 Comp Metabolic Wlj796 A/G Ratio 1.4 Ratio 07/24/2016 Comp Metabolic Jpl031 Osmo 279 mOsmo 07/24/2016 Tsh Ord6 hTSH II 0.44 uIU/mL 07/24/2016 %Hba1C Zxz964 % HbA1c 02940-5 7.1 % 07/24/2016 %Hba1C Oax180 Gluc Ave 157 mg/dL 07/24/2016 Cbc With [...] 88.0 fl 07/24/2016 Cbc With Differential Ord2 [place]% 7.7 % 07/24/2016 Cbc With Differential Ord2 MCH 29.1 pg 07/24/2016 Cbc With Differential Ord2 Eos% 7.5 % 07/24/2016 Cbc With Differential Ord2 MCHC 33.0 pg 07/24/2016 Cbc With Differential Ord2 Baso% 1.0 % 07/24/2016 Cbc With Differential Ord2 PLT 261 K/ul 07/24/2016 Cbc With Differential Ord2 RDW 13.6 % 07/24/2016 Cbc With Differential Ord2 Neut ABS# 3.11 K/ul 07/24/2016 Cbc With Differential Ord2 Lymph ABS# 2.11 K/ul 07/24/2016 Cbc With Differential Ord2 [place] ABS# 0.5 K/ul 07/24/2016 Cbc With Differential [...] normal 02/20/2017 None Full Exam - General 1995 Ears/Nose/Throat lips/teeth/gingiva Overall: benign lips 02/20/2017 None [...] Date PPPS, SUBSEQ VISIT CPT -4: G0439 02/20/2017 Vital Signs Date Vital 12/15/2017 Blood Pressure 1: 122/76 Code : 8480-6 BMI: 32.2 Code : 95968-6 Heart Rate 1 : 90 bpm Height: 5' SpO2: 97% Weight: 165 lbs 08/10/2017 Blood Pressure 1: 116/72 Code : 8480-6 BMI: 31.4 Code : 38326-3 Heart Rate 1 : 95 bpm Height: 5' SpO2: 96% Weight: 161 lbs 02/20/2017 Blood Pressure 1: 134/76 Code : 8480-6 BMI: 31.1 Code : 83579-3 Heart Rate 1 : 90 bpm Height: 5' SpO2: 93% Waist Measure (cm): 91 cm Weight: 159 lbs 02/10/2017 Blood Pressure 1: 132/80 Code : 8480-6 BMI: 31.1 Code : 43950-5 Heart Rate 1 : 93 bpm Height: 5' SpO2: 96% Weight: 159 lbs 07/24/2016 Blood Pressure 1: 130/72 Code : 8480-6 BMI: 32.6 Code : 06283-2 Heart Rate 1 : 86 bpm Height: 5' SpO2: 96% Weight: 167 lbs Functional Status No Functional Status data History of Present Illness Symptom Name Status Result Effective Date Notes diabetes mellitus Onset of Symptom onset as [...] data Encounters Encounter Performer Location Codes Date ([id number]) 11230 EST. PATIENT, LEVEL III Diagnosis: Type 2 diabetes mellitus without complications[ICD10: E11.9] Diagnosis: Gastro-esophageal reflux disease without esophagitis[ICD10: K21.9] Diagnosis: Primary central sleep apnea[ICD10: G47.31] [facility] CPT-4: 13279 12/15/2017 ([id number]) 50214 EST. PATIENT, LEVEL IV Diagnosis: Dysphagia, pharyngeal phase[ICD10: R13.13] Diagnosis: Type 2 diabetes mellitus without complications[ICD10: E11.9] Krystal Benavides MD, [facility] CPT-4: 87756 08/10/2017 ([id number]) 19111 EST. PATIENT, LEVEL IV Diagnosis: Type 2 diabetes mellitus without complications[ICD10: E11.9] Diagnosis: Encounter for screening mammogram for malignant neoplasm of breast[ ICD10: Z12.31] Krystal Benavides MD, [facility] CPT-4: 06071 02/10/2017 ([id number]) OFFICE VISIT, NEW - LEVEL 3 Diagnosis: Type 2 diabetes mellitus without complications[ICD10: E11.9] Diagnosis: Obstructive sleep apnea (adult) (pediatric)[ICD10: G47.33] Diagnosis: Personal history of colonic polyps[ICD10: Z86.010] Nadia Benavides MD, [facility] CPT-4: 44293 07/24/2016 Plan of Care Planned Activity Notes Codes Status Date Visit Plan: Diabetes Mellitus - controlled - [...] cpap GERD - continue with PPI 12/15/2017 Patient Education: Patient Medication Summary Completed 12/15/2017 Care Plan: %Hba1C LOINC : 88196-9 Pending 12/15/2017 Care Plan: Comp Metabolic Pending 12/15/2017 Care Plan: Microalbumin Pending 12/15/2017 Care Plan: Cbc With Differential Pending 12/15/2017 Care Plan: Tsh Pending 12/15/2017 Care Plan: Lipid Pending 12/15/2017 Referral: Abel Weinstein [address] [place] [address] Patient informed. Referral info faxed. Completed 08/18/2017 Appointment: Krystal Benavides WPtel: [address] [place], [place] [id number] (15 min) Moderate 08/13/2017 Visit Plan: Diabetes [...] during egd. 08/10/2017 Appointment: Krystal Benavides WPtel: [phone] [facility] (15 min) Moderate 08/10/2017 Patient Education: Patient Medication Summary Completed 08/10/2017 Patient Education: Obesity Completed 08/10/2017 Care Plan: Referral Order SNOMED-CT : [id number] Pending 08/10/2017 Visit Plan: Medicare Exam - [...] care surrogate. 02/20/2017 Appointment: Ni Green WPtel: [phone] [facility] [facility] - Annual Wellness Visit 02/20/2017 Patient Education: [...] for mammogram 02/10/2017 Appointment: Krystal Benavides WPtel: [phone] [facility] (15 min) Moderate 02/10/2017 Patient Education: Patient Medication Summary Completed 02/10/2017 Patient Education: Obesity Completed 02/10/2017 [phone] (15 min) Moderate 01/22/2017 Visit Plan: [...] Education: Obesity Completed 07/24/2016 Referral: Abel Weinstein [address] [facility] Referral Appointment Requested Instructions Comment . [...] egd - possible esophageal stretching during egd. RECOMMEND COLONOSCOPY RECOMMEND PAP SMEAR/PELVIC EXAM . [...]
--- OUTSIDE RECORDS SUMMARY | 2019-01-13 12:53 | XMS REPORT | CCD ---
Author Author Nadia Lin MD, [facility] Address [address] [place] [address] Phone Care Team Providers Care Instructor Ground Services Name Role Phone PP Unavailable CCM Unavailable Summary Purpose Interface Exchange Insurance Providers Payer name Policy type / Coverage type Covered constitution party ID Effective Begin Date Effective End Date WPS Medicare Part B Medicare Part B [id number] Unknown Unknown [facility] Medicare Part B [id number] Unknown Unknown Family history Daughter Diagnosis Age [...] 10 2 07/24/[address]: 1790943 Former smoker quit 2005 07/24/[address]: 165002199 Never drinks alcohol 07/24/2016 Allergies, Adverse Reactions, [...] Fill Instructions metformin 1,000 mg tablet RxNorm: 904898 Tablet(s) PO TAKE ONE TABLET BY MOUTH TWICE A DAY 01/11/2018 05/10/2018 Active metformin 1,000 mg tablet RxNorm: 832077 1 Tablet(s) PO BID 11/201703/23/2018 Active metformin 500 mg tablet RxNorm: 866192 TAKE ONE TABLET BY MOUTH TWICE A DAY 10/30/2017 01/10/2018 Inactive Pepcid 20 mg tablet RxNorm: 109815 1 Tablet(s) PO BID 201603/07/2018 Active metformin 500 mg tablet RxNorm: 679460 TAKE ONE TABLET BY MOUTH TWICE A DAY 08/04/2017 10/29/2017 Inactive metformin 500 mg tablet RxNorm: 145186 TAKE ONE TABLET BY MOUTH TWICE A DAY 08/04/2017 12/23/2017 Inactive metformin 500 mg tablet RxNorm: 198606 1 Tablet(s) PO BID 12/2307/20/2017 Inactive metformin 500 mg tablet RxNorm: 171933 1 Tablet(s) PO BID 08/0712/22/2016 Inactive metformin 500 mg tablet RxNorm: 814259 1 Tablet(s) PO BID No Start Date [...] Code Item Item Code Result Date %Hba1C Zfj578 % HbA1c 91540-2 7.4 % 12/18/2017 %Hba1C Bxx409 Gluc Ave 166 mg/dL 12/18/2017 Cbc With Differential Ord2 WBC 6.00 K/ul 12/18/2017 Cbc With Differential Ord2 RBC 5.02 M/ul 12/18/2017 Cbc With Differential Ord2 HGB 14.2 g/dl 12/18/2017 Cbc With Differential Ord2 HCT 43.9 % 12/18/2017 Cbc With Differential Ord2 Neut% 47.1 % 12/18/2017 Cbc With Differential Ord2 Lymph% 37.5 % 12/18/2017 Cbc With Differential Ord2 MCV 87.5 fl 12/18/2017 Cbc With Differential Ord2 [place]% 6.8 % 12/18/2017 Cbc With Differential Ord2 MCH 28.3 pg 12/18/2017 Cbc With Differential Ord2 MCHC 32.3 pg 12/18/2017 Cbc With Differential Ord2 Eos% 7.8 % 12/18/2017 Cbc With Differential Ord2 PLT 218 K/ul 12/18/2017 Cbc With Differential Ord2 Baso% 0.8 % 12/18/2017 Cbc With Differential Ord2 RDW 14.0 % 12/18/2017 Cbc With Differential Ord2 Neut ABS# 2.82 K/ul 12/18/2017 Cbc With Differential Ord2 Lymph ABS# 2.25 K/ul 12/18/2017 Cbc With Differential Ord2 [place] ABS# 0.4 K/ul 12/18/2017 Cbc With Differential Ord2 Eos ABS# 0.5 K/ul 12/18/2017 Cbc With Differential Ord2 Baso ABS# 0.1 K/ul 12/18/2017 Microalbumin Fzy882 MicroAlb <0.7 mg/dL 12/18/2017 Comp Metabolic Prv093 NA 143 mEq/L 12/18/2017 Comp Metabolic Yah720 K 4.1 mEq/L 12/18/2017 Comp Metabolic Lxt087 CL 106 mEq/L 12/18/2017 Comp Metabolic Yhp178 CO2 29.0 mEq/L 12/18/2017 Comp Metabolic Dvk025 ANION GAP 12 12/18/2017 Comp Metabolic Yme315 GLUCOSE 147 mg/dL 12/18/2017 Comp Metabolic Rmy751 Creat 0.7 mg/dL 12/18/2017 Comp Metabolic Fqp901 eGFR 83 ml/min/1.73m2 12/18/2017 Comp Metabolic Itl529 BUN 11 mg/dL 12/18/2017 Comp Metabolic Ygt413 B/C Ratio 14.9 Ratio 12/18/2017 Comp Metabolic Poe679 CALCIUM 9.6 mg/dL 12/18/2017 Comp Metabolic Meo690 ALK PHOS 98 U/L 12/18/2017 Comp Metabolic Jjw301 AST(SGOT) 26 U/L 12/18/2017 Comp Metabolic Yrh208 ALT(SGPT) 48 U/L 12/18/2017 Comp Metabolic Lia519 BILI T 0.4 mg/dL 12/18/2017 Comp Metabolic Xlr099 ALBUMIN 3.9 g/dL 12/18/2017 Comp Metabolic Qab973 TPRO 6.8 g/dL 12/18/2017 Comp Metabolic Lyv152 GLOB 2.9 g/dL 12/18/2017 Comp Metabolic Icl733 A/G Ratio 1.4 Ratio 12/18/2017 Comp Metabolic Rjk530 Osmo 287 mOsmo 12/18/2017 Tsh Ord6 TSH (3rd IS) 1.24 uIU/mL 12/18/2017 Lipid Ord30 CHOL 153 mg/dL 12/18/2017 Lipid Ord30 HDL 45.0 mg/dl 12/18/2017 Lipid Ord30 TRIG 163 mg/dL 12/18/2017 Lipid Ord30 LDL 75 mg/dL 12/18/2017 Lipid Ord30 C/HDL 3.4 Ratio 12/18/2017 %Hba1C Zri857 % HbA1c 45482-7 7.0 % 02/20/2017 %Hba1C Fdm687 Gluc Ave 154 mg/dL 02/20/2017 Tsh Ord6 [...] 89.1 fl 11/14/2016 Cbc With Differential Ord2 [place]% 6.3 % 11/14/2016 Cbc With Differential Ord2 MCH 29.1 pg 11/14/2016 Cbc With Differential Ord2 MCHC 32.7 pg 11/14/2016 Cbc With Differential Ord2 Eos% 6.3 % 11/14/2016 Cbc With Differential Ord2 Baso% 0.8 % 11/14/2016 Cbc With Differential Ord2 PLT 248 K/ul 11/14/2016 Cbc With Differential Ord2 RDW 13.8 % 11/14/2016 Cbc With Differential Ord2 Neut ABS# 3.30 K/ul 11/14/2016 Cbc With Differential Ord2 Lymph ABS# 1.80 K/ul 11/14/2016 Cbc With Differential Ord2 [place] ABS# 0.4 K/ul 11/14/2016 Cbc With Differential Ord2 Eos ABS# 0.4 K/ul 11/14/2016 Cbc With Differential Ord2 Baso ABS# 0.1 K/ul 11/14/2016 Comp Metabolic Jwt643 NA 138 mEq/L 11/14/2016 Comp Metabolic Qor719 K 4.2 mEq/L 11/14/2016 Comp Metabolic Stg291 CL 104 mEq/L 11/14/2016 Comp Metabolic Dgz697 CO2 30.0 mEq/L 11/14/2016 Comp Metabolic Ppv092 ANION GAP 8 11/14/2016 Comp Metabolic Qef611 GLUCOSE 154 mg/dL 11/14/2016 Comp Metabolic Nmb505 Creat 0.7 mg/dL 11/14/2016 Comp Metabolic Fbi076 eGFR 86 ml/min/1.73m2 11/14/2016 Comp Metabolic Abx454 BUN 12 mg/dL 11/14/2016 Comp Metabolic Wng387 B/C Ratio 16.7 Ratio 11/14/2016 Comp Metabolic Bjx188 CALCIUM 10.0 mg/dL 11/14/2016 Comp Metabolic Fna455 ALK PHOS 103 U/L 11/14/2016 Comp Metabolic Lov206 AST(SGOT) 27 U/L 11/14/2016 Comp Metabolic Kwq113 ALT(SGPT) 50 U/L 11/14/2016 Comp Metabolic Iyv748 BILI T 0.4 mg/dL 11/14/2016 Comp Metabolic Ihz339 ALBUMIN 4.4 g/dL 11/14/2016 Comp Metabolic Cvi030 TPRO 7.4 g/dL 11/14/2016 Comp Metabolic Gqa919 GLOB 3.0 g/dL 11/14/2016 Comp Metabolic Lxq100 A/G Ratio 1.5 Ratio 11/14/2016 Comp Metabolic Riv558 Osmo 279 mOsmo 11/14/2016 Free T4 Rcu076 FREE T4 0.86 ng/dL 11/14/2016 Lipid Ord30 CHOL 164 mg/dL 11/14/2016 Lipid Ord30 HDL 49.0 mg/dl 11/14/2016 Lipid Ord30 TRIG 130 mg/dL 11/14/2016 Lipid Ord30 LDL 89 mg/dL 11/14/2016 Lipid Ord30 C/HDL 3.3 Ratio 11/14/2016 Total T3 Ord42 TT3 1.32 ng/ml 11/14/2016 %Hba1C Vcn204 % HbA1c 00388-5 7.0 % 11/14/2016 %Hba1C Yot642 Gluc Ave 154 mg/dL 11/14/2016 Comp Metabolic Fva227 NA 136 mEq/L 07/24/2016 Comp Metabolic Nef693 K 4.1 mEq/L 07/24/2016 Comp Metabolic Sbc505 CL 102 mEq/L 07/24/2016 Comp Metabolic Bnj680 CO2 28.0 mEq/L 07/24/2016 Comp Metabolic Ank296 ANION GAP 10 07/24/2016 Comp Metabolic Ram540 GLUCOSE 211 mg/dL 07/24/2016 Comp Metabolic Avq479 Creat 0.7 mg/dL 07/24/2016 Comp Metabolic Szu165 eGFR 95 ml/min/1.73m2 07/24/2016 Comp Metabolic Tvl260 BUN 14 mg/dL 07/24/2016 Comp Metabolic Nsk081 B/C Ratio 21.2 Ratio 07/24/2016 Comp Metabolic Xvi498 CALCIUM 9.5 mg/dL 07/24/2016 Comp Metabolic Lar513 ALK PHOS 93 U/L 07/24/2016 Comp Metabolic Vqx665 AST(SGOT) 17 U/L 07/24/2016 Comp Metabolic Wko255 ALT(SGPT) 40 U/L 07/24/2016 Comp Metabolic Oal505 BILI T 0.3 mg/dL 07/24/2016 Comp Metabolic Mec930 ALBUMIN 4.2 g/dL 07/24/2016 Comp Metabolic Sbu286 TPRO 7.2 g/dL 07/24/2016 Comp Metabolic Qwd300 GLOB 3.0 g/dL 07/24/2016 Comp Metabolic Cae027 A/G Ratio 1.4 Ratio 07/24/2016 Comp Metabolic Jzi145 Osmo 279 mOsmo 07/24/2016 Tsh Ord6 hTSH II 0.44 uIU/mL 07/24/2016 %Hba1C Vog326 % HbA1c 33323-0 7.1 % 07/24/2016 %Hba1C Alb103 Gluc Ave 157 mg/dL 07/24/2016 Cbc With [...] 88.0 fl 07/24/2016 Cbc With Differential Ord2 [place]% 7.7 % 07/24/2016 Cbc With Differential Ord2 [...] 2.11 K/ul 07/24/2016 Cbc With Differential Ord2 [place] ABS# 0.5 K/ul 07/24/2016 Cbc With Differential [...] Code : 8480-6 BMI: 32.2 Code : 37725-7 Heart Rate 1 : 90 bpm Height: 5' SpO2: 97% Weight: 165 lbs 08/10/2017 Blood Pressure 1: 116/72 Code : 8480-6 BMI: 31.4 Code : 23191-2 Heart Rate 1 : 95 bpm Height: 5' SpO2: 96% Weight: 161 lbs 02/20/2017 Blood Pressure 1: 134/76 Code : 8480-6 BMI: 31.1 Code : 12090-8 Heart Rate 1 : 90 bpm Height: 5' SpO2: 93% Waist Measure (cm): 91 cm Weight: 159 lbs 02/10/2017 Blood Pressure 1: 132/80 Code : 8480-6 BMI: 31.1 Code : 97711-4 Heart Rate 1 : 93 bpm Height: 5' SpO2: 96% Weight: 159 lbs 07/24/2016 Blood Pressure 1: 130/72 Code : 8480-6 BMI: 32.6 Code : 56857-0 Heart Rate 1 : 86 bpm Height: [...] data Encounters Encounter Performer Location Codes Date ([id number]) [id number] EST. PATIENT, LEVEL III Diagnosis: Type 2 diabetes mellitus without complications[ICD10: E11.9] Diagnosis: Gastro-esophageal reflux disease without esophagitis[ICD10: K21.9] Diagnosis: Primary central sleep apnea[ICD10: G47.31] [facility] CPT-4: 33569 12/15/2017 [id number]) 60967 EST. PATIENT, LEVEL IV Diagnosis: Dysphagia, pharyngeal phase[ICD10: R13.13] Diagnosis: Type 2 diabetes mellitus without complications[ICD10: E11.9] [facility] CPT-4: 44725 08/10/2017 [id number]) 00075 EST. PATIENT, LEVEL IV Diagnosis: Type 2 diabetes mellitus without complications[ICD10: E11.9] Diagnosis: Encounter for screening mammogram for malignant neoplasm of breast[ ICD10: Z12.31] [facility] CPT-4: 09104 02/10/2017 ([id number]) OFFICE VISIT, NEW - LEVEL 3 Diagnosis: Type 2 diabetes mellitus without complications[ICD10: E11.9] Diagnosis: Obstructive sleep apnea (adult) (pediatric)[ICD10: G47.33] Diagnosis: Personal history of colonic polyps[ICD10: Z86.010] Nadia Benavides MD, [facility] CPT-4: 57818 07/24/2016 Plan of Care Planned Activity Notes [...] 12/15/2017 Appointment: Krystal Benavides WPtel: [facility] [address] (15 min) Moderate 12/15/2017 Patient Education: Patient Medication Summary Completed 12/15/2017 Referral: Abel Weinstein [facility] Patient informed. Referral info faxed. Completed 08/18/2017 Appointment: Krystal Benavides WPtel: [facility] [address] (15 min) Moderate 08/13/2017 Visit Plan: [...] 08/10/2017 Appointment: Krystal Benavides WPtel: [facility] [address] (15 min) Moderate 08/10/2017 Patient Education: Patient Medication Summary Completed 08/10/2017 Patient Education: Obesity Completed 08/10/2017 Care Plan: Referral Order SNOMED-CT : [id number] Pending 08/10/2017 Visit Plan: Medicare Exam - [...] 02/20/2017 Appointment: Ni Green WPtel: [facility] [address] [place] [address] - Annual Wellness Visit 02/20/2017 Patient Education: [...] for mammogram 02/10/2017 Appointment: Krystal [facility]ides [facility]Ptel[phone] [place] (15 min) Moderate 02/10/2017 Patient Education: Patient Medication Summary Completed 02/10/2017 Patient Education: Obesity Completed 02/10/2017 Appointment: Krystal [facility]ides [facility]Ptel[phone] (15 min) Moderate 01/22/2017 Visit Plan: [...] Education: Obesity Completed 07/24/2016 Referral: Abel Weinstein [address] [facility] Referral Appointment Requested Instructions Comment . Diabetes [...]
--- OUTSIDE RECORDS SUMMARY | 2019-01-13 12:54 | XMS REPORT | Continuity of Care Document ---
Author Author [facility] Organization [facility] Address Unknown Phone Unavailable Allergies Active Description Code Type Severity Reaction Onset Reported/Identified Relationship to Patient Clinical Status Yes ASPRIN ASPRIN Mild N/A 03/02/2010 Yes Iodinated Contrast Media - IV Dye [id number] Drug Allergy Unknown N/A 02/12 Yes Iodinated Contrast Media - Oral and [id number] Drug Allergy Unknown N/A Yes Iodinated Contrast- Oral and IV Dye [id number] Drug Allergy Unknown N/A Medications There is no data. Problems Date Dx Coded Attending Type Code [...] ENCNTR SCREEN MAMMOGRAM FOR MALIGNANT NE 02/22/2017 MANDA HAGAN MD Ot 611.72 LUMP OR MASS IN BREAST 02/22/2017 JOON ARCEO MD Ot Z12.31 ENCNTR SCREEN MAMMOGRAM FOR MALIGNANT NE 02/22/2017 CYRUS PALMER MD T Ot E11.9 TYPE 2 DIABETES MELLITUS WITHOUT COMPLIC 02/22/2017 CYRUS PALMER MD T Ot K57.32 DVTRCLI OF LG INT W/O PERFORATION OR ABS 02/22/2017 CYRUS PALMER MD T Ot R10.12 LEFT UPPER QUADRANT PAIN 02/26/2017 JOON ARCEO MD Ot Z12.31 ENCNTR SCREEN MAMMOGRAM FOR MALIGNANT NE 02/28/2017 CYRUS PALMER MD T Ot E11.9 TYPE 2 DIABETES MELLITUS WITHOUT COMPLIC 02/28/2017 CRYUS PALMER MD T Ot K57.32 DVTRCLI OF LG INT W/O PERFORATION OR ABS 02/28/2017 CYRUS PALMER MD T Ot R10.12 LEFT UPPER QUADRANT PAIN 03/17/2017 JOON ARCEO MD Ot Z12.31 ENCNTR SCREEN MAMMOGRAM FOR MALIGNANT NE 05/21/2017 MANDA HAGAN MD Ot 611.72 LUMP OR MASS IN BREAST 05/21/2017 JOON ARCEO MD Ot Z12.31 ENCNTR SCREEN MAMMOGRAM FOR MALIGNANT NE 05/22/2017 MANDA HAGAN MD Ot 611.72 LUMP OR MASS IN BREAST 05/22/2017 JOON ARCEO MD Ot Z12.31 ENCNTR SCREEN MAMMOGRAM FOR MALIGNANT NE 05/25/2017 MANDA HAGAN MD Ot 611.72 LUMP OR MASS IN BREAST 05/25/2017 JOON ARCEO MD Ot Z12.31 ENCNTR SCREEN MAMMOGRAM FOR MALIGNANT NE 08/19/2017 MANDA HAGAN MD Ot 611.72 LUMP OR MASS IN BREAST 08/19/[address], JOON Klein Ot Z12.31 ENCNTR SCREEN MAMMOGRAM FOR MALIGNANT NE 08/19/2017 LEE MOSS MD, Ot E11.9 TYPE 2 DIABETES MELLITUS WITHOUT COMPLIC 08/19/2017 LEE MOSS MD, Ot K21.0 GASTRO-ESOPHAGEAL REFLUX DISEASE WITH ES 08/19/2017 LEE MOSS MD, Ot K22.2 ESOPHAGEAL OBSTRUCTION 08/19/2017 LEE MOSS MD Ot K29.70 GASTRITIS, UNSPECIFIED, WITHOUT BLEEDING 08/19/2017 LEE MOSS MD, Ot K44.9 DIAPHRAGMATIC HERNIA WITHOUT OBSTRUCTION 08/19/2017 LEE MOSS MD, Ot Z79.84 LONGTERM (CURRENT) USE OF ORAL HYPOGLYC 08/21/2017 LEE MOSS MD Ot K21.9 GASTRO-ESOPHAGEAL REFLUX DISEASE WITHOUT 08/21/2017 LEE MOSS MD Ot R13.10 DYSPHAGIA, UNSPECIFIED 08/21/2017 LEE MOSS MD Ot Z01.818 ENCOUNTER FOR OTHER PREPROCEDURAL EXAMIN 08/21/2017 LEE MOSS MD, Ot K21.9 GASTRO-ESOPHAGEAL REFLUX DISEASE WITHOUT 08/21/2017 LEE MOSS MD Ot R13.10 DYSPHAGIA, UNSPECIFIED 08/21/2017 LEE MOSS MD Ot Z01.818 ENCOUNTER FOR OTHER PREPROCEDURAL EXAMIN 08/28/2017 LEE MOSS MD, Ot E11.9 TYPE 2 DIABETES MELLITUS WITHOUT COMPLIC 08/28/2017 LEE MOSS MD, Ot K21.0 GASTRO-ESOPHAGEAL REFLUX DISEASE WITH ES 08/28/2017 LEE MOSS MD Ot K22.2 ESOPHAGEAL OBSTRUCTION 08/28/2017 LEE MOSS MD, Ot K29.70 GASTRITIS, UNSPECIFIED, WITHOUT BLEEDING 08/28/2017 LEE MOSS MD, Ot K44.9 DIAPHRAGMATIC HERNIA WITHOUT OBSTRUCTION 08/28/2017 LEE MOSS MD Ot Z79.84 LONGTERM (CURRENT) USE OF ORAL HYPOGLYC 09/09/2017 LEE MOSS MD Ot E11.9 TYPE 2 DIABETES MELLITUS WITHOUT COMPLIC 09/09/2017 LEE MOSS MD, Ot K21.0 GASTRO-ESOPHAGEAL REFLUX DISEASE WITH ES 09/09/2017 LEE MOSS MD Ot K22.2 ESOPHAGEAL OBSTRUCTION 09/09/2017 LEE MOSS MD Ot K29.70 GASTRITIS, UNSPECIFIED, WITHOUT BLEEDING 09/09/2017 LEE MOSS MD, Ot K44.9 DIAPHRAGMATIC HERNIA WITHOUT OBSTRUCTION 09/09/2017 LEE MOSS MD Ot 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 12/02/2018 MANDA HAGAN MD Ot 611.72 LUMP OR MASS IN BREAST 12/02/2018 JOON ARCEO MD Ot Z12.31 ENCNTR SCREEN MAMMOGRAM FOR MALIGNANT NE 12/02/2018 LEE MOSS MD, Ot K21.9 GASTRO-ESOPHAGEAL REFLUX DISEASE WITHOUT 12/02/2018 LEE MOSS MD Ot R13.10 DYSPHAGIA, UNSPECIFIED 12/02/2018 LEE MOSS MD Ot Z01.818 ENCOUNTER FOR OTHER PREPROCEDURAL EXAMIN 12/02/2018 MANDA HAGAN MD Ot 611.72 LUMP OR MASS IN BREAST 12/02/2018 JOON ARCEO MD Ot Z12.31 ENCNTR SCREEN MAMMOGRAM FOR MALIGNANT NE 12/02/2018 LEE MOSS MD Ot K21.9 GASTRO-ESOPHAGEAL REFLUX DISEASE WITHOUT 12/02/2018 LEE MOSS MD Ot R13.10 DYSPHAGIA, UNSPECIFIED 12/02/2018 LEE MOSS MD Ot Z01.818 ENCOUNTER FOR OTHER PREPROCEDURAL EXAMIN 12/10/2018 DARIANA BOSCH APRN Ot K44.9 DIAPHRAGMATIC HERNIA WITHOUT OBSTRUCTION 12/10/2018 DARIANA BOSCH APRN Ot Z90.49 ACQUIRED ABSENCE OF OTHER SPECIFIED PART 12/17/2018 DARIANA BOSCH APRN Ot R10.9 UNSPECIFIED ABDOMINAL PAIN 12/17/2018 DARIANA BOSCH APRN Ot Z90.49 ACQUIRED ABSENCE OF OTHER SPECIFIED PART 01/03/2019 DARIANA BOSCH APRN Ot K44.9 DIAPHRAGMATIC HERNIA WITHOUT OBSTRUCTION 01/03/2019 DARIANA BOSCH APRN Ot Z90.49 ACQUIRED ABSENCE OF OTHER SPECIFIED PART Procedures There is no data. Results Test Result Range Complete blood count (CBC) with automated white blood cell (WBC) differential - 02/22/17 18:00 Blood leukocytes automated count (number/volume) 13.5 10*3/uL 4.3-11.0 Blood erythrocytes automated count (number/volume) 5.33 10*6/uL 4.35-5.85 Venous blood hemoglobin measurement (mass/volume) 15.2 [...] Automated blood platelet mean volume measurement 11.2 [foz_us] 7.4-10.4 Automated blood neutrophils/100 leukocytes 72 % [...] Serum or plasma sodium measurement (moles/volume) 142 mmol/L 135-145 Serum or plasma potassium measurement (moles/volume) 4.3 mmol/L 3.6-5.0 Serum or plasma chloride measurement (moles/volume) 106 mmol/L 98-107 Carbon dioxide 26 mmol/L 21-32 Serum or plasma anion gap determination (moles/volume) 10 mmol/L 5-14 Serum or plasma urea nitrogen measurement (mass/volume) 10 mg/dL 7-18 Serum or plasma creatinine measurement (mass/volume) 0.83 mg/dL 0.60-1.30 Serum or plasma urea nitrogen/creatinine mass [...] Urine pH measurement by test strip 6 5-9 Specific gravity of urine by test strip 1.015 1.016- 1.022 Urine protein assay by test strip, semi-quantitative [...] urinalysis with reflex to culture NO NRG Comprehensive metabolic panel - 12/09/18 08:42 Serum or plasma sodium measurement (moles/volume) 142 mmol/L 135-145 Serum or plasma potassium measurement (moles/volume) 4.2 mmol/L 3.6-5.0 Serum or plasma chloride measurement (moles/volume) 108 mmol/L 98-107 Carbon dioxide 24 mmol/L 21-32 Serum or plasma anion gap determination (moles/volume) 10 mmol/L 5-14 Serum or plasma urea nitrogen measurement (mass/volume) 11 mg/dL 7-18 Serum or plasma creatinine measurement (mass/volume) 0.75 mg/dL 0.60-1.30 Serum or plasma urea nitrogen/creatinine mass ratio 15 NRG Serum or plasma creatinine measurement with calculation of estimated glomerular filtration rate > NRG Serum or plasma glucose measurement (mass/volume) 130 mg/dL 70-105 Serum or plasma calcium measurement (mass/volume) 9.4 mg/dL 8.5-10.1 Serum or plasma total bilirubin measurement (mass/volume) 0.5 mg/dL 0.1-1.0 Serum or plasma alkaline phosphatase measurement (enzymatic activity/volume) 85 U/L 40-136 Serum or plasma aspartate aminotransferase measurement (enzymatic activity/ volume) 38 U/L 5-34 Serum or plasma alanine aminotransferase measurement (enzymatic activity/volume ) 64 U/L 0-55 Serum or plasma protein measurement (mass/volume) 7.4 g/dL 6.4-8.2 Serum or plasma albumin measurement (mass/volume) 4.1 g/dL 3.2-4.5 CALCIUM CORRECTED 9.3 mg/dL 8.5-10.1 Encounters ACCT No. Visit Date/Time Discharge Status Pt. Type Provider Facility Loc./Unit Complaint [id number] 12/09/2018 08:17:00 12/09/2018 23:59:59 CLS Outpatient DARIAAN BOSCH APRN [facility] RAD ABD PAIN [id number] 12/02/2018 16:00:00 12/02/2018 23:59:59 CLS Outpatient DARIANA BOSCH APRN [facility] RAD R FLANK PAIN [id number] 08/19/2017 08:57:00 08/19/2017 12:23:00 DIS Outpatient LEE MOSS MD [facility] ENDO DYSPHAGIA [id number] 08/18/2017 12:10:00 08/18/2017 23:59:59 CLS Outpatient LEE MOSS MD [facility] PREOP EGD [id number] 02/22/2017 17:39:00 02/22/2017 21:47:[address] DIS [address], CYRUS Barillas [facility] ER L SIDE PAIN [id number] 02/20/2017 10:25:00 02/20/2017 23:59:59 CLS Outpatient JOON ARCEO MD [facility] RAD SCREENING [id number] 08/22/2014 08:06:00 08/22/2014 23:59:[address], MANDA Camejo [facility] RAD LT BREAST LUMP [id number] 02/16/2015 11:37:00 Document Registration [id number] 02/16/2015 11:37:00 Document Registration [id number] 02/16/2015 11:37:00 Document Registration [id number] 02/16/2015 11:37:00 Document Registration [id number] 02/16/2015 11:37:00 Document Registration [id number] 02/12/2013 10:39:00 Document Registration [id number] 08/24/2010 09:13:00 Document Registration [id number] 08/10/2017 17:33:42 08/10/2017 23:59:59 CLS Outpatient
--- NOTE | 2019-01-13 13:47 | NUR ---
REGISTRATION STATES AT DESK ET ASKING HOW MUCH LONGER. I WENT OUT TO TALK WITH PT AND TO NOTIFY HER THAT THE ER WAS BUSY AND ALL ROOMS FULL AT THIS TIME. NOTIFIED WE WOULD BE GETTING HER BACK SOON WE COULD.
[2019-01-13] MEDS ORDERED: NS IV 1000 ML 1,000 ML IV SCH (14:15)
[2019-01-13] MEDS ORDERED: ONDANSETRON 4 MG/2 ML (SDV) Z0FRAN IVP ONE (14:15)
--- NOTE | 2019-01-13 14:24 | ED Abdominal Pain ---
General Chief Complaint: Abdominal/GI Problems Stated Complaint: N/V/D Nursing Triage Note: ARRIVED VIA AMB TO TRIAGE WITH COMPLAINTS OF N/V/D SINCE THURSDAY. UNABLE TO KEEP ANYTHING DOWN. Sepsis Screen: No Definite Risk Source of Information: Patient Exam Limitations: No Limitations History of Present Illness Date Seen by Provider: Jan 13, 2019 Time Seen by Provider: 14:23 Initial Comments To ER with reports of abdominal cramping, diarrhea nausea for about 48 hours. No fevers or chills. The diarrhea is without blood or mucus. No recent antibiotic use. Timing/Duration: 1-2 Days Severity/Quality: Cramping Location: Generalized Abdomen Radiation: No Radiation Activities at Onset: None Associated Symptoms: Nausea/Vomiting Allergies and Home Medications Allergies Coded Allergies: Iodinated Contrast- Oral and IV Dye (Verified Allergy, Unknown, 08/19/17) Uncoded Allergies: ASPRIN (Allergy, Mild, 03/02/10) Home Medications Metformin HCl 500 Mg Tab.er.24h, 500 MG PO BID, (Reported) Pantoprazole Sodium 40 Mg Tablet.dr, 40 MG PO DAILY Prescribed by: LEE MOSS on 08/19/17 1119 Patient Home Medication List Home Medication List Reviewed: Yes Review of Systems Review of Systems Constitutional: see HPI EENTM: No Symptoms Reported Respiratory: No Symptoms Reported Cardiovascular: No Symptoms Reported Gastrointestinal: See HPI, Abdominal Pain, Diarrhea, Nausea, Vomiting Genitourinary: No Symptoms Reported Musculoskeletal: no symptoms reported Skin: no symptoms reported Psychiatric/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: No Symptoms Reported Endocrine: No Symptoms Reported Hematologic/Lymphatic: No Symptoms Reported Past Uqnyvko-Swmiew-X[place] Hx Patient Social History Recent Foreign Travel: No Contact w/Someone Who Travel: No Recent Infectious Disease Expo: No Recent Hopitalizations: No Seasonal Allergies Seasonal Allergies: No Past Medical History Gallbladder, Oophorectomy, Tubal Ligation 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 11.2oz. 72.413281ec; 31.2 BMI Method:Stated General Appearance: WD/WN, no apparent distress HEENT: PERRL/EOMI, normal ENT inspection Respiratory: no respiratory distress, no accessory muscle use Gastrointestinal: normal bowel sounds, soft, tenderness (mild periumbilical tenderness no rebound) Extremities: normal range of motion, non-tender Neurologic/Psychiatric: alert, normal mood/affect, oriented x 3 Skin: normal color, warm/dry Progress/Results/Core Measures Results/Orders Lab Results Laboratory Tests Test 01/13/19 14:09 01/13/19 14:46 Range/Units White Blood Count 8.5 4.3-11.0 10^3/uL Red Blood Count 5.53 4.35-5.85 10^6/uL Hemoglobin 15.7 11.5-16.0 G/DL Hematocrit 48 35-52 % Mean Corpuscular Volume 86 80-99 FL Mean Corpuscular Hemoglobin 28 25-34 PG Mean Corpuscular Hemoglobin Concent 33 32-36 G/DL Red Cell Distribution Width 14.0 10.0-14.5 % Platelet Count 263 130-400 10^3/uL Mean Platelet Volume 10.7 H 7.4-10.4 FL Neutrophils (%) (Auto) 67 42-75 % Lymphocytes (%) (Auto) 21 12-44 % Monocytes (%) (Auto) 9 0-12 % Eosinophils (%) (Auto) 3 0-10 % Basophils (%) (Auto) 0 0-10 % Neutrophils # (Auto) 5.7 1.8-7.8 X 10^3 Lymphocytes # (Auto) 1.8 1.0-4.0 X 10^3 Monocytes # (Auto) 0.8 0.0-1.0 X 10^3 Eosinophils # (Auto) 0.2 0.0-0.3 10^3/uL Basophils # (Auto) 0.0 0.0-0.1 10^3/uL Sodium Level 139 135-145 MMOL/L Potassium Level 4.2 3.6-5.0 MMOL/L Chloride Level 108 H 98-107 MMOL/L Carbon Dioxide Level 22 21-32 MMOL/L Anion Gap 9 5-14 MMOL/L Blood Urea Nitrogen 11 7-18 MG/DL Creatinine 0.77 0.60-1.30 MG/DL Estimat Glomerular Filtration Rate > 60 BUN/Creatinine Ratio 14 Glucose Level 121 H 70-105 MG/DL Calcium Level 9.4 8.5-10.1 MG/DL Corrected Calcium 9.2 8.5-10.1 MG/DL Total Bilirubin 0.5 0.1-1.0 MG/DL Aspartate Amino Transf (AST/SGOT) 58 H 5-34 U/L Alanine Aminotransferase (ALT/SGPT) 110 H 0-55 U/L Alkaline Phosphatase 78 40-136 U/L Total Protein 7.6 6.4-8.2 GM/DL Albumin 4.2 3.2-4.5 GM/DL Lipase 16 8-78 U/L Urine Color YELLOW Urine Clarity SLIGHTLY CLOUDY Urine pH 5 5-9 Urine Specific [place] 1.025 H 1.016-1.022 Urine Protein 2+ H NEGATIVE Urine Glucose (UA) NEGATIVE NEGATIVE Urine Ketones NEGATIVE NEGATIVE Urine Nitrite NEGATIVE NEGATIVE Urine Bilirubin NEGATIVE NEGATIVE Urine Urobilinogen NORMAL NORMAL MG/DL Urine Leukocyte Esterase 3+ H NEGATIVE Urine RBC (Auto) NEGATIVE NEGATIVE Urine RBC 0-2 /HPF Urine WBC 25-50 H /HPF Urine Squamous Epithelial Cells 25-50 H /HPF Urine Crystals NONE /LPF Urine Bacteria MODERATE H /HPF Urine Casts PRESENT /LPF Urine Hyaline Casts 2-5 H /LPF Urine Mucus NEGATIVE /LPF Urine Culture Indicated YES My Orders Orders - KATINA SKY APRN Cbc With Automated Diff (01/13/19 14:12) Comprehensive Metabolic Panel (01/13/19 14:12) Lipase (01/13/19 14:12) Iv Heplock-Insert (Order) (01/13/19 14:12) Ua Culture If Indicated (01/13/19 14:12) Ns Iv 1000 Ml (Sodium Chloride 0.9%) (01/13/19 14:15) Ondansetron Injection (Zofran Injectio (01/13/19 14:15) Hyoscyamine Sl Tablet (Levsin Sl Tablet) (01/13/19 14:30) Ct Abdomen/Pelvis Wo (01/13/19 14:21) Urine Culture (01/13/19 14:46) Ceftriaxone For Iv Use (Rocephin For I (01/13/19 15:45) Promethazine Injection (Phenergan Injec (01/13/19 16:00) Medications Given in ED Current Medications Medications Dose Ordered Sig/Mary Route Start Time Stop Time Status Last Admin Dose Admin Hyoscyamine Sulfate 0.25 mg ONCE ONCE PO 01/13/19 14:30 01/13/19 14:31 DC 01/13/19 14:24 0.25 MG Ondansetron HCl 8 mg ONCE ONCE IVP 01/13/19 14:15 01/13/19 14:16 DC 01/13/19 14:24 8 MG Vital Signs/I&O 01/13/19 12:49 Temp 98.2 Pulse 94 Resp 16 B/P (MAP) 125/48 (73) Pulse Ox 100 O2 Delivery Room Air Blood Pressure Mean: 73 Departure Communication (Admissions) Time/Spoke to Admitting Phy: 15:[address] Benavides. We'll admit, surgery on board, [place]. Stomach is decompressed so will not do nasogastric tube. Time/Spoke to Consulting Phy: 15:56 Dr. Almonte will consult. Impression Primary Impression: Urinary tract infection Qualified Codes: N30.00 - Acute cystitis without hematuria Additional Impression: Small bowel obstruction Disposition: ADMITTED INPATIENT Condition: Stable Admissions Decision to Admit Reason: Admit from ER (General) Decision to Admit/Date: Jan 13, 2019 Time/Decision to Admit Time: 15:44 Departure-Patient Inst. Referrals: JOON BENAVIDES MD (PCP/Family) Primary Care Physician Patient Instructions: Small Bowel Obstruction (DC) KATINA SKY APRN Jan 13, 2019 14:24
[2019-01-13] MEDS ORDERED: HYOSCYAMINE 0.125 MG (LEVSIN) TAB PO ONE (14:30)
[2019-01-13 14:35] LABS: BASOPHILS % (AUTO) 0 % (0-10); EOSINOPHILS # (AUTO) 0.2 10^3/uL (0.0-0.3); EOSINOPHILS % (AUTO) 3 % (0-10); HEMATOCRIT 48 % (35-52); HEMOGLOBIN 15.7 G/DL (11.5-16.0); LYMPHOCYTES # (AUTO) 1.8 X 10^3 (1.0-4.0); LYMPHOCYTES % (AUTO) 21 % (12-44); MEAN CORPUSCULAR HEMOGLOBIN 28 PG (25-34); MEAN CORPUSCULAR HGB CONC 33 G/DL (32-36); MEAN CORPUSCULAR VOLUME 86 FL (80-99); MEAN PLATELET VOLUME 10.7 FL (7.4-10.4); MONOCYTES # (AUTO) 0.8 X 10^3 (0.0-1.0); MONOCYTES % (AUTO) 9 % (0-12); NEUTROPHILS # (AUTO) 5.7 X 10^3 (1.8-7.8); NEUTROPHILS % (AUTO) 67 % (42-75); PLATELET COUNT 263 10^3/uL (130-400); WHITE BLOOD COUNT 8.5 10^3/uL (4.3-11.0)
[2019-01-13 14:46] LABS: ALANINE AMINOTRANSFERASE 110 U/L (0-55); ALBUMIN 4.2 GM/DL (3.2-4.5); ALKALINE PHOSPHATASE 78 U/L (40-136); BILIRUBIN,TOTAL 0.5 MG/DL (0.1-1.0); BUN/CREATININE RATIO 14; CALCIUM 9.4 MG/DL (8.5-10.1); CARBON DIOXIDE 22 MMOL/L (21-32); CHLORIDE 108 MMOL/L (98-107); CREATININE SERUM 0.77 MG/DL (0.60-1.30); GFR ESTIMATED > 60; GLUCOSE 121 MG/DL (70-105); LIPASE 16 U/L (8-78); POTASSIUM 4.2 MMOL/L (3.6-5.0); SODIUM 139 MMOL/L (135-145); TOTAL PROTEIN 7.6 GM/DL (6.4-8.2)
[2019-01-13 14:57] LABS: BILIRUBIN,URINE NEGATIVE (NEGATIVE); CLARITY,URINE SLIGHTLY CLOUDY; COLOR,URINE YELLOW; GLUCOSE, URINE (UA) NEGATIVE (NEGATIVE); KETONES,URINE NEGATIVE (NEGATIVE); LEUKOCYTE ESTERASE ,URINE 3+ (NEGATIVE); NITRITE,URINE NEGATIVE (NEGATIVE); PH,URINE 5 (5-9); PROTEIN,URINE 2+ (NEGATIVE); UROBILINOGEN,URINE NORMAL (NORMAL)
[2019-01-13 15:06] LABS: BACTERIA,URINE MODERATE /HPF; RBC,URINE 0-2 /HPF; SQUAMOUS EPITHELIAL CELL,UR 25-50 /HPF; WBC,URINE 25-50 /HPF
--- NOTE | 2019-01-13 15:30 | Diagnostic Imaging Report ---
PROCEDURE: CT abdomen and pelvis without contrast. TECHNIQUE: Multiple contiguous axial images were obtained through the abdomen and pelvis without the use of intravenous contrast. INDICATION: Nausea, vomiting and diarrhea for two days. Correlation is made with prior CT from 12/09/2018. Lung bases are clear of acute infiltrates. Subpleural nodule in the right lower lobe is stable. Calcified granuloma left lower lobe also appear stable. There is a moderate-sized hiatal hernia. Liver demonstrates diffuse low density consistent with hepatic steatosis. No discrete liver mass is detected. The gallbladder is surgically absent. No biliary ductal dilatation is seen. The pancreas and spleen are unremarkable. No adrenal mass is detected. There is a questionable rounded density in the upper pole of the right kidney approximately 15 mm in size. This is difficult to separate from surrounding renal parenchyma. Postcontrast imaging may be useful. There is tiny nonobstructing calculus lower pole right kidney. No hydronephrosis is seen. Left kidney is unremarkable. Aorta is heavily calcified but nonaneurysmal. The patient has developed a moderate fluid-filled distention of small bowel loops throughout the abdomen. There does appear to be some transition to more normal caliber small bowel loops distally in the right lower quadrant. Features are concerning for small bowel obstruction. This may originate in the region of the hepatic flexure. No free fluid in the abdomen or pelvis is seen. There is no free air. There is diverticulosis of the sigmoid but no evidence of acute diverticulitis. Uterus and bladder are unremarkable. IMPRESSION: 1. Hepatic steatosis. 2. Moderate size hiatal hernia. 3. Questionable rounded density in the upper pole right kidney. Renal sonography or pre-and postcontrast CT could be performed on nonemergent basis for further characterization. 4. Development of moderate fluid-filled distention of small bowel loops with transition distally suggestive of small bowel obstruction. No definite free air or abscess formation is seen. Dictated by: Dictated on workstation # [id number]
[2019-01-13] MEDS ORDERED: cefTRIAXone FOR IV USE 1,000 MG in WATER (STERILE) FOR INJECTION 10 ML IV ONE (15:45)
[2019-01-13] MEDS ORDERED: PROMETHAZINE INJ 25 MG/ML (PHENERGAN) AMP IVP ONE (16:00)
--- NOTE | 2019-01-13 16:35 | Consultation ---
History of Present Illness History of Present Illness Patient Consulted On(karina/time) 01/13/19 16:29 Time Seen by Provider: 15:42 History of Present Illness Yuli asked to consult regarding possible PSBO. HPI per ED: To ER with reports of abdominal cramping, diarrhea nausea for about 48 hours. No fevers or chills. The diarrhea is without blood or mucus. No recent antibiotic use. Timing/Duration: 1-2 Days Severity/Quality: Cramping Location: Generalized Abdomen Radiation: No Radiation Activities at Onset: None Associated Symptoms: Nausea/Vomiting Patient is a 68-year-old female who states she has had one episode of abdominal pain (like this) about 2 or 3 years ago; where she was told she had bowel obstruction. She states all they did was watch her in the hospital and she got better. She states a difference this time is that she was vomiting uncontrollably last time she just was nauseous she had no vomiting. She also thinks this time the pain is worse. She rates the pain as a 6 out of 10 on a 1- 10 scale. She states with this episode she is also having diarrhea. Allergies and Home Medications Allergies Coded Allergies: Iodinated Contrast- Oral and IV Dye (Verified Allergy, Unknown, 08/19/17) Uncoded Allergies: ASPRIN (Allergy, Mild, 03/02/10) Home Medications Metformin HCl 500 Mg Tab.er.24h, 500 MG PO BID, (Reported) Pantoprazole Sodium 40 Mg Tablet.dr, 40 MG PO DAILY Prescribed by: LEE MOSS on 08/19/17 1119 Patient Home Medication List Home Medication List Reviewed: Yes Past Teltkqn-Mbhown-Osnsni Hx Patient Social History Alcohol Use: Denies Use Recreational Drug Use: No Smoking Status: Former Smoker 2nd Hand Smoke Exposure: Yes Recent Foreign Travel: No Contact w/Someone Who Travel: No Recent Infectious Disease Expo: No Recent Hopitalizations: No Seasonal Allergies Seasonal Allergies: No Surgeries History of Surgeries: Yes (EGD/ESOPHAGEAL DILATIONS) Surgeries: Gallbladder, Oophorectomy, Tubal Ligation Respiratory History of Respiratory Disorde: Yes (CPAP AT NIGHT) Respiratory Disorders: Sleep Apnea Cardiovascular History of Cardiac Disorders: No 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 History of 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 Disord: Yes 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 Genitourinary Genitourinary Disorders: Kidney Stones Gastrointestinal History of Gastrointestinal Di: Yes (esophageal strictures status post dilation ) Gastrointestinal Disorders: Gastroesophageal Reflux, Hiatal Hernia Musculoskeletal History of Musculoskeletal Dis: No Endocrine History of Endocrine Disorders: Yes (Diabetes, Diet controlled) Endocrine Disorders: Diabetes, Non-Insulin dep Cancer History of Cancer: No Psychosocial History of Psychiatric Problem: No Integumentary History of Skin or Integumenta: No Blood Transfusions History of Blood Disorders: No Family Medical History Significant Family History: Cancer, Diabetes (mother and brother) Review of Systems-General Constitutional: No chills, No malaise, No weakness EENTM: No blurred vision, No mouth pain, No mouth swelling, No epistaxis Respiratory: No cough, No dyspnea on exertion Cardiovascular: No chest pain, No edema, No palpitations Gastrointestinal: abdominal pain, diarrhea; No jaundice; nausea, vomiting Genitourinary: No dysuria, No frequency, No hematuria Musculoskeletal: back pain, joint pain, joint swelling, muscle pain Skin: No change in color, No change in hair/nails Psychiatric/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: Denies Anxiety, Denies Depressed, Denies Pre- Existing Deficit, Denies Tremors Other pt denies any abnormal bruising or bleeding Physical Exam-General Problems Physical Exam Vital Signs Vital Signs - First Documented 01/13/19 12:49 Temp 98.2 Pulse 94 Resp 16 B/P (MAP) 125/48 (73) Pulse Ox 100 O2 Delivery Room Air Capillary Refill : Less Than 3 Seconds General Appearance: WD/WN, mild distress Eyes: Bilateral Eye PERRL, Bilateral Eye EOMI HEENT: pharynx normal; No scleral icterus (R), No scleral icterus (L) Neck: non-tender, supple Respiratory: chest non-tender, lungs clear, normal breath sounds, no respiratory distress Cardiovascular: regular rate, rhythm, no edema, no murmur Gastrointestinal: soft, no organomegaly, abnormal bowel sounds (decreased); No guarding, No rebound; tenderness (diffusely, mostly to palpation) Back: no CVA tenderness, no vertebral tenderness Extremities: no pedal edema, no calf tenderness, normal capillary refill 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, no motor/sensory deficits, alert, normal mood/affect, oriented x 3 Skin: normal color Lymphatic: no adenopathy (neck, axilla or groin) Data Review Labs Laboratory Tests 01/13/19 14:09: White Blood Count 8.5, Red Blood Count 5.53, Hemoglobin 15.7, Hematocrit 48, Mean Corpuscular Volume 86, Mean Corpuscular Hemoglobin 28, Mean Corpuscular Hemoglobin Concent 33, Red Cell Distribution Width 14.0, Platelet Count 263, Mean Platelet Volume 10.7H, Neutrophils (%) (Auto) 67, Lymphocytes (%) (Auto) 21 , Monocytes (%) (Auto) 9, Eosinophils (%) (Auto) 3, Basophils (%) (Auto) 0, Neutrophils # (Auto) 5.7, Lymphocytes # (Auto) 1.8, Monocytes # (Auto) 0.8, Eosinophils # (Auto) 0.2, Basophils # (Auto) 0.0, Sodium Level 139, Potassium Level 4.2, Chloride Level 108H, Carbon Dioxide Level 22, Anion Gap 9, Blood Urea Nitrogen 11, Creatinine 0.77, Estimat Glomerular Filtration Rate > 60, BUN/ Creatinine Ratio 14, Glucose Level 121H, Calcium Level 9.4, Corrected Calcium 9.2, Total Bilirubin 0.5, Aspartate Amino Transf (AST/SGOT) 58H, Alanine Aminotransferase (ALT/SGPT) 110H, Alkaline Phosphatase 78, Total Protein 7.6, Albumin 4.2, Lipase 16 01/13/19 14:46: Urine Color YELLOW, Urine Clarity SLIGHTLY CLOUDY, Urine pH 5, Urine Specific [place] 1.025H, Urine Protein 2+H, Urine Glucose (UA) NEGATIVE, Urine Ketones NEGATIVE, Urine Nitrite NEGATIVE, Urine Bilirubin NEGATIVE, Urine Urobilinogen NORMAL, Urine Leukocyte Esterase 3+H, Urine RBC (Auto) NEGATIVE, Urine RBC 0-2, Urine WBC 25-50H, Urine Squamous Epithelial Cells 25-50H, Urine Crystals NONE, Urine Bacteria MODERATEH, Urine Casts PRESENT, Urine Hyaline Casts 2-5H, Urine Mucus NEGATIVE, Urine Culture Indicated YES Assessment/Plan Assessment/Plan Assessment/Plan Abdominal pain PSBO UTI Nausea and vomiting Patient has a CAT scan performed which was read by radiology as partial small bowel obstruction with transition in the pelvis. No specific transition point was seen. I think this may more of a final gastroenteritis or ileus because I do not see a specific transition point. We will make patient nothing by mouth, start IV fluids and hold off on an NG tube at this time. She'll get pain medication as well as anti-emetics and I will follow along. If she gets worse, she may need a small bowel follow-through. At this time she essentially does not look sick or septic and so we'll just monitor her and treat her nonoperatively. KENN PANCHAL DO Jan 13, 2019 16:35
--- NOTE | 2019-01-13 18:55 | NUR ---
ROXANA ACOSTA admitted to room 429-1, with an admitting diagnosis of UTI, SBO, on 01/13/19 from ED via WC, accompanied by STAFF AND SPOUSE. ROXANA ACOSTA introduced to surroundings, call light, bed controls, phone, TV, temperature control, lights, meal times, smoking policy, visitor policy, side rail policy, bathrooms and showers. Patient Rights given to patient in the handbook. ROXANA ACOSTA verbalizes understanding that [facility] is not responsible for the loss or damage to any personal effects or valuables that are kept in the patients posession during their hospitalization. ROXANA ACOSTA verbalizes understanding of Interdisciplinary Patient Education. Patient and/or family were informed about the Rapid Response Team and its purpose.
--- OUTSIDE RECORDS SUMMARY | 2019-01-13 19:00 | XMS REPORT | Continuity of Care Document ---
Author Author [facility] Organization [facility] Address Unknown Phone Unavailable Allergies Active Description Code Type Severity Reaction Onset Reported/Identified Relationship to Patient Clinical Status Yes ASPRIN ASPRIN Mild N/A 03/02/2010 Yes Iodinated Contrast Media - IV Dye [id number] Drug Allergy Unknown N/A 02/12 Yes Iodinated Contrast Media - Oral and [id number] Drug Allergy Unknown N/A Yes Iodinated Contrast- Oral and IV Dye [id number] Drug Allergy Unknown N/A Medications There is [...] MELLITUS WITHOUT COMPLIC 02/28/2017 CYRUS PALMER MD T Ot K57.32 DVTRCLI [...] OBSTRUCTION 08/19/2017 LEE MOSS MD, Ot Z79.84 [facility] (CURRENT) USE OF ORAL HYPOGLYC 08/21/2017 LEE [...] OBSTRUCTION 08/28/2017 LEE MOSS MD Ot Z79.84 SN[facility] (CURRENT) USE OF ORAL HYPOGLYC 09/09/2017 LEE MOSS MD Ot E11.9 TYPE 2 DIABETES MELLITUS WITHOUT COMPLIC 09/09/2017 LEE MOSS MD, Ot K21.0 GASTRO-ESOPHAGEAL REFLUX DISEASE WITH ES 09/09/2017 LEE MOSS MD Ot K22.2 ESOPHAGEAL OBSTRUCTION 09/09/2017 LEE MOSS MD Ot K29.70 GASTRITIS, UNSPECIFIED, WITHOUT BLEEDING 09/09/2017 LEE MOSS MD, Ot K44.9 DIAPHRAGMATIC HERNIA WITHOUT OBSTRUCTION 09/09/2017 LEE MOSS MD Ot 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 12/02/2018 MANDA [...] g/dL 3.2-4.5 CALCIUM CORRECTED 9.3 mg/dL 8.5-10.1 Complete blood count (CBC) with automated white blood cell (WBC) differential - 01/13/19 14:09 Blood leukocytes automated count (number/volume) 8.5 10*3/uL 4.3-11.0 Blood erythrocytes automated count (number/volume) 5.53 10*6/uL 4.35-5.85 Venous blood hemoglobin measurement (mass/volume) 15.7 g/dL 11.5-16.0 Blood hematocrit (volume fraction) 48 % 35-52 Automated erythrocyte mean corpuscular volume 86 [foz_us] 80-99 Automated erythrocyte mean corpuscular hemoglobin (mass per erythrocyte) 28 pg 25-34 Automated erythrocyte mean corpuscular hemoglobin concentration measurement ( mass/volume) 33 g/dL 32-36 Automated erythrocyte distribution width ratio 14.0 % 10.0-14.5 Automated blood platelet count (count/volume) 263 10*3/uL 130-400 Automated blood platelet mean volume measurement 10.7 [foz_us] 7.4-10.4 Automated blood neutrophils/100 leukocytes 67 % 42-75 Automated blood lymphocytes/100 leukocytes 21 % 12-44 Blood monocytes/100 leukocytes 9 % 0-12 Automated blood eosinophils/100 leukocytes 3 % 0-10 Automated blood basophils/100 leukocytes 0 % 0-10 Blood neutrophils automated count (number/volume) 5.7 10*3 1.8-7.8 Blood lymphocytes automated count (number/volume) 1.8 10*3 1.0-4.0 Blood monocytes automated count (number/volume) 0.8 10*3 0.0-1.0 Automated eosinophil count 0.2 10*3/uL 0.0-0.3 Automated blood basophil count (count/volume) 0.0 10*3/uL 0.0-0.1 Comprehensive metabolic panel - 01/13/19 14:09 Serum or plasma sodium measurement (moles/volume) 139 mmol/L 135-145 Serum or plasma potassium measurement (moles/volume) 4.2 mmol/L 3.6-5.0 Serum or plasma chloride measurement (moles/volume) 108 mmol/L 98-107 Carbon dioxide 22 mmol/L 21-32 Serum or plasma anion gap determination (moles/volume) 9 mmol/L 5-14 Serum or plasma urea nitrogen measurement (mass/volume) 11 mg/dL 7-18 Serum or plasma creatinine measurement (mass/volume) 0.77 mg/dL 0.60-1.30 Serum or plasma urea nitrogen/creatinine mass ratio 14 NRG Serum or plasma creatinine measurement with calculation of estimated glomerular filtration rate > NRG Serum or plasma glucose measurement (mass/volume) 121 mg/dL 70-105 Serum or plasma calcium measurement (mass/volume) 9.4 mg/dL 8.5-10.1 Serum or plasma total bilirubin measurement (mass/volume) 0.5 mg/dL 0.1-1.0 Serum or plasma alkaline phosphatase measurement (enzymatic activity/volume) 78 U/L 40-136 Serum or plasma aspartate aminotransferase measurement (enzymatic activity/ volume) 58 U/L 5-34 Serum or plasma alanine aminotransferase measurement (enzymatic activity/volume ) 110 U/L 0-55 Serum or plasma protein measurement (mass/volume) 7.6 g/dL 6.4-8.2 Serum or plasma albumin measurement (mass/volume) 4.2 g/dL 3.2-4.5 CALCIUM CORRECTED 9.2 mg/dL 8.5-10.1 Lipase - 01/13/19 14:09 Lipase 16 U/L 8-78 Complete urinalysis with reflex to culture - 01/13/19 14:46 Urine color determination YELLOW NRG Urine clarity determination SLIGHTLY CLOUDY NRG Urine pH measurement by test strip 5 5-9 Specific gravity of urine by test strip 1.025 1.016- 1.022 Urine protein assay by test strip, semi-quantitative 2+ NEGATIVE Urine glucose detection by automated test strip NEGATIVE NEGATIVE Erythrocytes detection in urine sediment by light microscopy NEGATIVE NEGATIVE Urine ketones detection by automated test strip NEGATIVE NEGATIVE Urine nitrite detection by test strip NEGATIVE NEGATIVE Urine total bilirubin detection by test strip NEGATIVE NEGATIVE Urine urobilinogen measurement by automated test strip (mass/volume) NORMAL NORMAL Urine leukocyte esterase detection by dipstick 3+ NEGATIVE Automated urine sediment erythrocyte count by microscopy (number/high power field) [HPF] NRG Automated urine sediment leukocyte count by microscopy (number/high power field ) [HPF] NRG Bacteria detection in urine sediment by light microscopy MODERATE NRG Squamous epithelial cells detection in urine sediment by light microscopy 25-50 NRG Crystals detection in urine sediment by light microscopy NONE NRG Casts detection in urine sediment by light microscopy PRESENT NRG Mucus detection in urine sediment by light microscopy NEGATIVE NRG Complete urinalysis with reflex to culture YES NRG Hyaline casts detection in urine sediment by light microscopy 2-5 NRG Encounters ACCT No. Visit Date/Time Discharge Status Pt. Type Provider Facility Loc./Unit Complaint [id number] 12/09/2018 08:17:00 12/09/2018 23:59:59 CLS Outpatient DARIANA BOSCH APRN [facility] RAD ABD PAIN [id number] 12/02/2018 16:00:00 12/02/2018 23:59:59 CLS Outpatient DARIANA BOSCH APRN [facility] RAD R FLANK PAIN [id number] 08/19/2017 08:57:00 08/19/2017 12:23:00 DIS Outpatient LEE MOSS MD [facility] ENDO DYSPHAGIA [id number] 08/18/2017 12:10:00 08/18/2017 23:59:[address], LEE [facility] PREOP EGD [id number] 02/22/2017 17:39:00 02/22/2017 21:47:00 DIS Emergency ESTELA LANE, CYRUS Barillas [facility] ER L SIDE PAIN [id number] 02/20/2017 10:25:00 02/20/2017 23:59:59 CLS [address] L[address], JOON Klein [facility] RAD SCREENING [id number] 08/22/2014 08:06:00 08/22/2014 23:59:[address], MANDA Camejo [facility] RAD LT BREAST LUMP [id number] 01/13/2019 14:37:00 Document Registration [id number] 02/16/2015 11:37:00 Document Registration [id number] 02/16/2015 11:37:00 Document Registration [id number] 02/16/2015 11:37:00 Document Registration [id number] 02/16/2015 11:37:00 Document Registration [id number] 02/16/2015 11:37:00 Document Registration [id number] 02/12/2013 10:39:00 Document Registration [id number] 08/24/2010 09:13:00 Document Registration [id number] 08/10/2017 17:33:42 08/10/2017 23:59:59 CLS Outpatient
[2019-01-13 19:01] VITALS: BP 129/60
[2019-01-13] MEDS ORDERED: CATHETER FLUSH 10 ML SYR IV PRN (19:45)
[2019-01-13] MEDS ORDERED: FLU QUADRIvalent (5+ YOA) 2018-2019 (AFLURIA) 0.5 ML IM ONE (19:45)
[2019-01-13] MEDS ORDERED: fentaNYL INJECTION 100 MCG/2 ML AMP IV PRN (19:45)
[2019-01-13] MEDS: LACTATED RINGERS 1,000 ML IV SCH (19:54)
--- NOTE | 2019-01-13 20:37 | History & Physicial ---
History of Present Illness History of Present Illness Reason for visit/HPI PT IS A 68 Y/O FEMALE WHO IS KNOWN TO ME FROM CLINIC. SHE REPORTS THAT SHE HAD PAIN IN HER ABDOMEN ON THURSDAY AND SHE THOUGHT THAT IT WOULD SLOWLY IMPROVE , HOWEVER THE PAIN WAS INCREASING AND SHE HAD SOME NAUSEA WELL, THEREFORE SHE PRESENTED TO THE HOSPITAL DUE TO THE UNCONTROLLED PAIN IN HER STOMACH. THIS EVENING SHE REPORTS THAT SHE HAS A HEADACHE AND SHE ALSO HAS PERSISTENT ABDOMINAL PAIN. Date of Admission Jan 13, 2019 at 15:43 Date Seen by a Provider: Jan 13, 2019 Time Seen by a Provider: 20:00 I consulted on this patient on 01/13/19 20:36 Attending Physician Joon Benavides MD Admitting Physician Joon Benavides MD Consult DR. PANCHAL Allergies and Home Medications Allergies Coded Allergies: Iodinated Contrast- Oral and IV Dye (Verified Allergy, Unknown, 01/13/19) Uncoded Allergies: ASPRIN (Allergy, Mild, 03/02/10) Home Medications Famotidine 20 Mg Tablet, 20 MG PO BID, (Reported) Metformin HCl 1,000 Mg Tablet, 1,000 MG PO BID, (Reported) Vitamin B Complex 1 Each Tablet, 1 TAB PO DAILY, (Reported) Patient Home Medication List Home Medication List Reviewed: Yes Past Qgblece-Vvweln-Godjiz Hx Patient Social History Marrital Status: Living Status: LIVES WITH SPOUSE IN THEIR HOME Employed/Student: retired Alcohol Use: Denies Use Recreational Drug Use: No Smoking Status: Former Smoker 2nd Hand Smoke Exposure: Yes Physical Abuse Screen: No Sexual Abuse: No Recent Foreign Travel: No Contact w/other who traveled: No Recent Hopitalizations: No Recent Infectious Disease Expo: No Seasonal Allergies Seasonal Allergies: No Surgeries Yes (EGD/ESOPHAGEAL DILATIONS) Gallbladder, Oophorectomy, Tubal Ligation Respiratory Yes (CPAP AT NIGHT) Currently Using CPAP: Yes (CPAP at night) Currently Using BIPAP: No Cardiovascular No 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 Genitourinary Yes Kidney Stones Gastrointestinal Yes (esophageal strictures status post dilation) Gastroesophageal Reflux, Diverticulosis, Hiatal Hernia Musculoskeletal No Endocrine History of Endocrine Disorders: Yes (Diabetes, Diet controlled) Endocrine Disorders: Diabetes, Non-Insulin dep Are Your Blood Sugars Over 250: Yes HEENT History of HEENT Disorders: No Cancer No Psychosocial History of Psychiatric Problem: No Integumentary History of Skin or Integumenta: No Blood Transfusions History of Blood Disorders: No Adverse Reaction to a Blood Tr: No Reviewed Nursing Assessment Reviewed/Agree w Nursing PMH: Yes Family Medical History Significant Family History: Cancer, Diabetes (mother and brother) Review of Systems Constitutional: No chills, No fever; malaise EENTM: No hoarseness, No throat pain Respiratory: No cough, No short of breath Cardiovascular: No chest pain, No edema Gastrointestinal: RUQ, LUQ, RLQ, LLQ, abdominal pain, nausea; No vomiting Genitourinary: no symptoms reported Musculoskeletal: no symptoms reported Skin: no symptoms reported Psychiatric/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: No Symptoms Reported All Other Systems Reviewed Negative Unless Noted: Yes Physical Exam Vital Signs Vital Signs - First Documented 01/13/19 12:49 Temp 98.2 Pulse 94 Resp 16 B/P (MAP) 125/48 (73) Pulse Ox 100 O2 Delivery Room Air Capillary Refill : Less Than 3 Seconds Height, Weight, BMI Height: 5'0.00" Weight: 159lbs. 11.2oz. 72.774318ve; 31.2 BMI Method:Stated General Appearance: WD/WN, Mild Distress (DUE TO ABDOMINAL PAIN) Eyes: Bilateral Eye Normal Inspection, Bilateral Eye PERRL, Bilateral Eye EOMI HEENT: PERRL/EOMI, TMs Normal, Normal ENT Inspection, Pharynx Normal Neck: Full Range of Motion, Supple Respiratory: Chest Non Tender, Lungs Clear, Normal Breath Sounds, No Accessory Muscle Use, No Respiratory Distress Cardiovascular: Regular Rate, Rhythm, No Murmur, Normal Peripheral Pulses Gastrointestinal: Soft, Tenderness (DIFFUSELY WITH DECREASED BOWEL SOUNDS) Rectal: Deferred Back: No CVA Tenderness Extremity: Normal Capillary Refill, Non Tender, Pedal Edema (TRACE) Neurologic/Psychiatric: Alert, Oriented x3, No Motor/Sensory Deficits, Normal 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 PANCHAL HAS BEEN CONSULTED - CONTINUE WITH CURRENT MANAGEMENT, FLUIDS, MONITOR I/O AND PAIN CONTROL. ELEVATED LIVER ENZYMES - HOLD HOME MEDICATIONS AT THIS TIME - SUPPORT WITH FLUIDS, MONITOR LABS SERIALLY. URINARY TRACT INFECTION - WAITING ON CULTURE REPORT - CONTINUE WITH ROCEPHIN. DEHYDRATION - PUSH IV FLUIDS - MONITOR I/O. DIABETES MELLITUS - ON METFORMIN OUTPATIENT - HOLD AT THIS TIME. ANDICIPATE PT TO BE IN HOSPITAL FOR AT LEAST 2-3 DAYS WE WAIT FOR RESOLUTION OF ILEUS. Admission Diagnosis ILEUS - SMALL BOWEL ELEVATED LIVER ENZYMES URINARY TRACT INFECTION DEHYDRATION DIABETES MELLITUS Admission Status: Inpatient Order (span 2 midnights) Reason for Inpatient Admission: PT HAS AN ILEUS AND THIS WILL TAKE AT LEAST 48-72 HOURS FOR RESOLUTION Clinical Quality Measures DVT/VTE Risk/Contraindication: Risk Factor Score Per Nursin RFS Level Per Nursing on Admit: 3=High JOON BENAVIDES MD Jan 13, 2019 20:36
[2019-01-13] MEDS ORDERED: ACETAMINOPHEN 80 MG CHEW/MELT (TYLENOL) PO ONE (20:45)
[2019-01-14 00:57] VITALS: BP 133/74
[2019-01-14 03:51] VITALS: BP 124/58
[2019-01-14] MEDS: LACTATED RINGERS 1,000 ML IV SCH ×3 (03:52→18:43)
[2019-01-14 05:06] LABS: BASOPHILS % (AUTO) 0 % (0-10); EOSINOPHILS # (AUTO) 0.2 10^3/uL (0.0-0.3); EOSINOPHILS % (AUTO) 4 % (0-10); HEMATOCRIT 43 % (35-52); HEMOGLOBIN 13.7 G/DL (11.5-16.0); LYMPHOCYTES # (AUTO) 2.1 X 10^3 (1.0-4.0); LYMPHOCYTES % (AUTO) 37 % (12-44); MEAN CORPUSCULAR HEMOGLOBIN 28 PG (25-34); MEAN CORPUSCULAR HGB CONC 32 G/DL (32-36); MEAN CORPUSCULAR VOLUME 88 FL (80-99); MEAN PLATELET VOLUME 10.7 FL (7.4-10.4); MONOCYTES # (AUTO) 0.5 X 10^3 (0.0-1.0); MONOCYTES % (AUTO) 8 % (0-12); NEUTROPHILS # (AUTO) 2.9 X 10^3 (1.8-7.8); NEUTROPHILS % (AUTO) 51 % (42-75); PLATELET COUNT 195 10^3/uL (130-400); RED CELL DISTRIBUTION WIDTH 13.4 % (10.0-14.5); WHITE BLOOD COUNT 5.8 10^3/uL (4.3-11.0)
[2019-01-14 05:30] LABS: ALANINE AMINOTRANSFERASE 77 U/L (0-55); ALBUMIN 3.3 GM/DL (3.2-4.5); ALKALINE PHOSPHATASE 57 U/L (40-136); BILIRUBIN,TOTAL 0.4 MG/DL (0.1-1.0); BUN/CREATININE RATIO 14; CALCIUM 8.5 MG/DL (8.5-10.1); CARBON DIOXIDE 24 MMOL/L (21-32); CHLORIDE 111 MMOL/L (98-107); GFR ESTIMATED > 60; GLUCOSE 104 MG/DL (70-105); SODIUM 143 MMOL/L (135-145); TOTAL PROTEIN 5.8 GM/DL (6.4-8.2)
[2019-01-14 08:00] VITALS: BP 136/59
[2019-01-14] MEDS: ONDANSETRON 4 MG/2 ML (SDV) Z0FRAN IV PRN ×3 (08:34→20:56)
[2019-01-14] MEDS ORDERED: VITA1TAB17 PO (08:42)
[2019-01-14] MEDS ORDERED: METF-399 PO (08:42)
[2019-01-14] MEDS ORDERED: FAMO-119 PO (08:42)
--- NOTE | 2019-01-14 09:24 | Progress Note ---
Subjective Date Seen by a Provider: Jan 14, 2019 Time Seen by a Provider: 09:20 Subjective/Events-last exam PT REPORTS THAT SHE STILL HAS ABDOMINAL PAIN, TRIED TO HAVE A BOWEL MOVEMENT EARLIER, BUT SHE DID NOT HAVE ANY MOVEMENT - SHE REPORTS THAT SHE DOES FEEL A LITTLE HUNGRY. SHE DENIES CHEST PAIN, SHORTNESS OF BREATH, NAUSEA, DIZZINESS, COUGH. Review of Systems General: Fatigue HEENT: No Head Aches, No Dysphasia Pulmonary: No Dyspnea, No Cough Cardiovascular: No: Chest Pain Gastrointestinal: Abdominal Pain; No: Nausea Genitourinary: Frequency Musculoskeletal: No: back pain 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: Weakness; No: Confusion Objective Exam Last Set of Vital Signs Vital Signs Date Time Temp Pulse Resp B/P (MAP) Pulse Ox O2 Delivery O2 Flow Rate FiO2 01/14/19 07:00 82 01/14/19 03:51 97.8 18 124/58 (80) 94 Room Air Capillary Refill : Less Than 3 Seconds I&O Intake and Output 01/13/19 23:59 Intake Total 1010 ml Output Total 350 ml Balance 660 ml Intake Oral 0 ml IV Total 1010 ml Output Urine Total 350 ml Daily Weight Change No No General: Alert, Oriented X3, Cooperative, Mild Distress HEENT: Atraumatic, PERRLA Neck: Supple Lungs: Clear to Auscultation, Normal Air Movement Heart: Regular Rate Abdomen: Soft, Other (DECREASED BOWEL SOUNDS - TTP WORSE IN RUQ AND RLQ, MILD IN LUQ, LLQ) Neuro: Normal Speech Psych/Mental Status: Mental Status NL, Mood NL Results Lab Laboratory Tests 01/13/19 14:09: White Blood Count 8.5, Red Blood Count 5.53, Hemoglobin 15.7, Hematocrit 48, Mean Corpuscular Volume 86, Mean Corpuscular Hemoglobin 28, Mean Corpuscular Hemoglobin Concent 33, Red Cell Distribution Width 14.0, Platelet Count 263, Mean Platelet Volume 10.7H, Neutrophils (%) (Auto) 67, Lymphocytes (%) (Auto) 21 , Monocytes (%) (Auto) 9, Eosinophils (%) (Auto) 3, Basophils (%) (Auto) 0, Neutrophils # (Auto) 5.7, Lymphocytes # (Auto) 1.8, Monocytes # (Auto) 0.8, Eosinophils # (Auto) 0.2, Basophils # (Auto) 0.0, Sodium Level 139, Potassium Level 4.2, Chloride Level 108H, Carbon Dioxide Level 22, Anion Gap 9, Blood Urea Nitrogen 11, Creatinine 0.77, Estimat Glomerular Filtration Rate > 60, BUN/ Creatinine Ratio 14, Glucose Level 121H, Calcium Level 9.4, Corrected Calcium 9.2, Total Bilirubin 0.5, Aspartate Amino Transf (AST/SGOT) 58H, Alanine Aminotransferase (ALT/SGPT) 110H, Alkaline Phosphatase 78, Total Protein 7.6, Albumin 4.2, Lipase 16 01/13/19 14:46: Urine Color YELLOW, Urine Clarity SLIGHTLY CLOUDY, Urine pH 5, Urine Specific Robertson 1.025H, Urine Protein 2+H, Urine Glucose (UA) NEGATIVE, Urine Ketones NEGATIVE, Urine Nitrite NEGATIVE, Urine Bilirubin NEGATIVE, Urine Urobilinogen NORMAL, Urine Leukocyte Esterase 3+H, Urine RBC (Auto) NEGATIVE, Urine RBC 0-2, Urine WBC 25-50H, Urine Squamous Epithelial Cells 25-50H, Urine Crystals NONE, Urine Bacteria MODERATEH, Urine Casts PRESENT, Urine Hyaline Casts 2-5H, Urine Mucus NEGATIVE, Urine Culture Indicated YES 01/14/19 04:50: White Blood Count 5.8, Red Blood Count 4.84, Hemoglobin 13.7, Hematocrit 43, Mean Corpuscular Volume 88, Mean Corpuscular Hemoglobin 28, Mean Corpuscular Hemoglobin Concent 32, Red Cell Distribution Width 13.4, Platelet Count 195, Mean Platelet Volume 10.7H, Neutrophils (%) (Auto) 51, Lymphocytes (%) (Auto) 37 , Monocytes (%) (Auto) 8, Eosinophils (%) (Auto) 4, Basophils (%) (Auto) 0, Neutrophils # (Auto) 2.9, Lymphocytes # (Auto) 2.1, Monocytes # (Auto) 0.5, Eosinophils # (Auto) 0.2, Basophils # (Auto) 0.0, Sodium Level 143, Potassium Level 4.0, Chloride Level 111H, Carbon Dioxide Level 24, Anion Gap 8, Blood Urea Nitrogen 10, Creatinine 0.70, Estimat Glomerular Filtration Rate > 60, BUN/ Creatinine Ratio 14, Glucose Level 104, Calcium Level 8.5, Corrected Calcium 9.1 , Total Bilirubin 0.4, Aspartate Amino Transf (AST/SGOT) 37H, Alanine Aminotransferase (ALT/SGPT) 77H, Alkaline Phosphatase 57, Total Protein 5.8L, Albumin 3.3 Assessment/Plan Assessment/Plan Assess & Plan/Chief Complaint ILEUS - SMALL BOWEL ELEVATED LIVER ENZYMES URINARY TRACT INFECTION DEHYDRATION DIABETES MELLITUS ILEUS - SMALL BOWEL - NPO AT THIS TIME - DR. PANCHAL HAS BEEN CONSULTED - DISCUSSED TODAY IN PATIENT'S ROOM -IF NO IMPROVEMENT IN PATIENT'S SYMPTOMS TODAY - WILL CONSIDER SMALL BOWEL FOLLOW THROUGH. MEANWHILE WE WILL CONTINUE WITH CURRENT MANAGEMENT, FLUIDS, MONITOR I/O AND PAIN CONTROL. ELEVATED LIVER ENZYMES - IMPROVED FROM YESTERDAY SLIGHTLY - HOLD HOME MEDICATIONS AT THIS TIME - SUPPORT WITH FLUIDS, MONITOR LABS SERIALLY. URINARY TRACT INFECTION - WAITING ON CULTURE REPORT - CONTINUE WITH ROCEPHIN. DEHYDRATION - PUSH IV FLUIDS - MONITOR I/O. DIABETES MELLITUS - ON METFORMIN OUTPATIENT - HOLD AT THIS TIME. ANDICIPATE PT TO BE IN HOSPITAL FOR AT LEAST 2-3 DAYS WE WAIT FOR RESOLUTION OF ILEUS. Clinical Quality Measures DVT/VTE Risk/Contraindication: Risk Factor Score Per Nursin RFS Level Per Nursing on Admit: 3=High JOON ARCEO MD Jan 14, 2019 09:24
--- NOTE | 2019-01-14 11:55 | Progress Note ---
Subjective Time Seen by a Provider: 10:20 Subjective/Events-last exam Pt seen and examined, states she still has nausea but is not vomiting. She has not had BM since yesterday. When asked how she feels, she stated "crappy"; no better than yesterday but not worse. Review of Systems General: No Chills, No Night Sweats Pulmonary: No Dyspnea, No Cough Cardiovascular: No: Chest Pain, Palpitations Gastrointestinal: Nausea, Abdominal Pain; No: Vomiting Objective Exam Vital Signs Date Time Temp Pulse Resp B/P (MAP) Pulse Ox O2 Delivery O2 Flow Rate FiO2 01/14/19 08:00 98.1 76 18 136/59 (84) 95 Room Air 01/14/19 07:00 82 01/14/19 03:51 97.8 77 18 124/58 (80) 94 Room Air 01/14/19 01:00 74 01/14/19 00:57 99.0 73 18 133/74 (93) 92 Room Air 01/13/19 22:07 Room Air 01/13/19 19:01 99.0 92 18 129/60 (83) 95 Room Air 01/13/19 19:00 84 01/13/19 18:46 98.2 94 16 134/55 (81) 100 01/13/19 12:49 98.2 94 16 125/48 (73) 100 Room Air I & O 01/14/19 07:00 Intake Total 2010 ml Output Total 650 ml Balance 1360 ml Capillary Refill : Less Than 3 Seconds General Appearance: WD/WN, Mild Distress HEENT: PERRL/EOMI, Pharynx Normal Respiratory: Chest Non Tender, Lungs Clear, Normal Breath Sounds, No Accessory Muscle Use, No Respiratory Distress Cardiovascular: Regular Rate, Rhythm, No Edema, No Murmur Gastrointestinal: soft, no organomegaly, abnormal bowel sounds (decreased); No guarding, No rebound; tenderness (diffusely, mostly to palpation and maybe more in RUQ) Results Lab Laboratory Tests 01/13/19 14:09: White Blood Count 8.5, Red Blood Count 5.53, Hemoglobin 15.7, Hematocrit 48, Mean Corpuscular Volume 86, Mean Corpuscular Hemoglobin 28, Mean Corpuscular Hemoglobin Concent 33, Red Cell Distribution Width 14.0, Platelet Count 263, Mean Platelet Volume 10.7H, Neutrophils (%) (Auto) 67, Lymphocytes (%) (Auto) 21 , Monocytes (%) (Auto) 9, Eosinophils (%) (Auto) 3, Basophils (%) (Auto) 0, Neutrophils # (Auto) 5.7, Lymphocytes # (Auto) 1.8, Monocytes # (Auto) 0.8, Eosinophils # (Auto) 0.2, Basophils # (Auto) 0.0, Sodium Level 139, Potassium Level 4.2, Chloride Level 108H, Carbon Dioxide Level 22, Anion Gap 9, Blood Urea Nitrogen 11, Creatinine 0.77, Estimat Glomerular Filtration Rate > 60, BUN/ Creatinine Ratio 14, Glucose Level 121H, Calcium Level 9.4, Corrected Calcium 9.2, Total Bilirubin 0.5, Aspartate Amino Transf (AST/SGOT) 58H, Alanine Aminotransferase (ALT/SGPT) 110H, Alkaline Phosphatase 78, Total Protein 7.6, Albumin 4.2, Lipase 16 01/13/19 14:46: Urine Color YELLOW, Urine Clarity SLIGHTLY CLOUDY, Urine pH 5, Urine Specific Evans 1.025H, Urine Protein 2+H, Urine Glucose (UA) NEGATIVE, Urine Ketones NEGATIVE, Urine Nitrite NEGATIVE, Urine Bilirubin NEGATIVE, Urine Urobilinogen NORMAL, Urine Leukocyte Esterase 3+H, Urine RBC (Auto) NEGATIVE, Urine RBC 0-2, Urine WBC 25-50H, Urine Squamous Epithelial Cells 25-50H, Urine Crystals NONE, Urine Bacteria MODERATEH, Urine Casts PRESENT, Urine Hyaline Casts 2-5H, Urine Mucus NEGATIVE, Urine Culture Indicated YES 01/14/19 04:50: White Blood Count 5.8, Red Blood Count 4.84, Hemoglobin 13.7, Hematocrit 43, Mean Corpuscular Volume 88, Mean Corpuscular Hemoglobin 28, Mean Corpuscular Hemoglobin Concent 32, Red Cell Distribution Width 13.4, Platelet Count 195, Mean Platelet Volume 10.7H, Neutrophils (%) (Auto) 51, Lymphocytes (%) (Auto) 37 , Monocytes (%) (Auto) 8, Eosinophils (%) (Auto) 4, Basophils (%) (Auto) 0, Neutrophils # (Auto) 2.9, Lymphocytes # (Auto) 2.1, Monocytes # (Auto) 0.5, Eosinophils # (Auto) 0.2, Basophils # (Auto) 0.0, Sodium Level 143, Potassium Level 4.0, Chloride Level 111H, Carbon Dioxide Level 24, Anion Gap 8, Blood Urea Nitrogen 10, Creatinine 0.70, Estimat Glomerular Filtration Rate > 60, BUN/ Creatinine Ratio 14, Glucose Level 104, Calcium Level 8.5, Corrected Calcium 9.1 , Total Bilirubin 0.4, Aspartate Amino Transf (AST/SGOT) 37H, Alanine Aminotransferase (ALT/SGPT) 77H, Alkaline Phosphatase 57, Total Protein 5.8L, Albumin 3.3 Microbiology 01/13/19 Urine Culture - Final, Complete 3 or more isolates Assessment/Plan Assessment/Plan Assessment/Plan Abdominal pain PSBO UTI Nausea and vomiting Pt not really improving, but not getting worse. Would continue NPO, IVF, Pain control and anti-emetics until she starts getting better. She is hungry and wants to eat but can't until her pain improves. Her abdomen is not distended. She was told to chew gum and ambulate; both will help with return of bowel fxn. If she is not improved tomorrow then may consider a small bowel follow through. Clinical Quality Measures DVT/VTE Risk/Contraindication: Risk Factor Score Per Nursin RFS Level Per Nursing on Admit: 3=High KENN PANCHAL DO Jan 14, 2019 11:55
[2019-01-14 12:00] VITALS: BP 125/63
[2019-01-14] MEDS: cefTRIAXone 1,000 MG/SWFI 10 ML IV PUSH IV SCH ×2 (14:37)
[2019-01-14 16:35] VITALS: BP 125/58
[2019-01-14 20:42] VITALS: BP 115/15
[2019-01-14] MEDS: ACETAMINOPHEN 80 MG CHEW/MELT (TYLENOL) PO PRN (21:00)
[2019-01-15] VITALS: BP 128/58
[2019-01-15 04:00] VITALS: BP 109/69
[2019-01-15] MEDS: LACTATED RINGERS 1,000 ML IV SCH (04:32)
--- NOTE | 2019-01-15 07:54 | Progress Note (SOAP) ---
Subjective Date Seen by a Provider: Jan 15, 2019 Time Seen by a Provider: 07:35 Subjective/Events-last exam no more nausea or abdominal pain. Passing flatus and having bowel movements. Review of Systems General: No Chills, No Night Sweats, No Fatigue, No Malaise HEENT: No Head Aches, No Eye Pain, No Ear Pain, No Dysphasia, No Sinus Congestion, No Post Nasal Drip, No Sore Throat Pulmonary: No Dyspnea, No Cough, No Pleuritic Chest Pain Cardiovascular: No: Chest Pain, Palpitations, Orthopnea, Paroxysmal Noc. Dyspnea, Edema, Lt Headedness Genitourinary: No Dysuria, No Frequency, No Incontinence, No Hematuria, No Retention Musculoskeletal: No: other, neck pain, shoulder pain, arm pain, back pain, hand pain, leg pain, foot pain 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: No: Weakness, Numbness, Incoordination, Change in speech, Confusion, Seizures, Other Objective Exam Vital Signs Date Time Temp Pulse Resp B/P (MAP) Pulse Ox O2 Delivery O2 Flow Rate FiO2 01/15/19 07:04 59 01/15/19 04:00 98.0 67 18 109/69 (82) 94 Room Air 01/15/19 01:00 69 01/15/19 00:00 98.7 68 18 128/58 (81) 94 Room Air 01/14/19 20:42 98.9 68 20 115/15 (48) 93 Room Air 01/14/19 20:00 Room Air 01/14/19 19:00 81 01/14/19 16:35 98.3 79 18 125/58 (80) 95 Room Air 01/14/19 13:00 75 01/14/19 12:00 97.1 75 20 125/63 (83) 95 Room Air 01/14/19 08:35 Room Air 01/14/19 08:00 98.1 76 18 136/59 (84) 95 Room Air I & O 01/15/19 07:00 Intake Total 2000 ml Output Total 1025 ml Balance 975 ml Capillary Refill : Less Than 3 Seconds General Appearance: No Apparent Distress Neck: Normal Inspection Respiratory: Lungs Clear Cardiovascular: Regular Rate, Rhythm Gastrointestinal: non tender, soft, other Neurologic/Psychiatric: Alert, Oriented x3 Skin: Warm/Dry Other comments subumbilical scar from tubal ligation several years ago. No incisional hernia. Results Lab Microbiology 01/13/19 Urine Culture - Final, Complete 3 or more isolates Assessment/Plan Assessment/Plan Assess & Plan/Chief Complaint lady with clinical features of possible bilateral gastroenteritis. Do not feel she has mechanical obstruction. Will advance to liquid diet first Final Diagnosis gastroenteritis. Clinical Quality Measures DVT/VTE Risk/Contraindication: Risk Factor Score Per Nursin RFS Level Per Nursing on Admit: 3=High HILARIO ROBERTS MD Jan 15, 2019 07:53
[2019-01-15 08:12] VITALS: BP 126/74
[2019-01-15] MEDS: ONDANSETRON 4 MG/2 ML (SDV) Z0FRAN IV PRN (08:31)
[2019-01-15] MEDS: metFORMIN 500 MG (GLUCOPHAGE) TAB PO SCH ×2 (08:38→16:59)
[2019-01-15] MEDS: FAMOTIDINE 20 MG (PEPCID) TABLET PO SCH ×2 (08:38→20:24)
[2019-01-15] MEDS ORDERED: FLU QUADRIvalent (5+ YOA) 2018-2019 (AFLURIA) 0.5 ML IM ONE (11:01)
[2019-01-15 11:35] VITALS: BP 119/56
--- NOTE | 2019-01-15 11:56 | Progress Note-Hospitalist ---
Subjective HPI/CC On Admission Date Seen by Provider: Jan 15, 2019 Time Seen by Provider: 10:00 Subjective/Events-last exam Patient denies abdominal pain and had one loose nonbloody stool this morning. She tolerated solids this morning and reports feeling better. She's had no chills fever dysuria or flank pain. Objective Exam Vital Signs Vital Signs Date Time Temp Pulse Resp B/P (MAP) Pulse Ox O2 Delivery O2 Flow Rate FiO2 01/15/19 11:35 98.6 72 18 119/56 (77) 94 Room Air Capillary Refill : Less Than 3 Seconds General Appearance: No Apparent Distress HEENT: PERRL/EOMI Neck: Normal Inspection Respiratory: Lungs Clear Cardiovascular: Regular Rate, Rhythm Gastrointestinal: Normal Bowel Sounds, Soft, Distended (Mild distention no tenderness noted.) Rectal: Deferred Extremity: Normal Capillary Refill, Non Tender, Pedal Edema (TRACE) Neurologic/Psychiatric: Alert, Oriented x3 Skin: Warm/Dry Lymphatic: No Adenopathy Results/Procedures Lab Patient resulted labs reviewed. Assessment/Plan Assessment and Plan Assess & Plan/Chief Complaint 1. Gastroenteritis with ileus improving will DC IV fluids and consider discharge tomorrow morning. 2. Probable urinary tract infection culture growing several organisms with reflex to contamination clause per our lab we'll give 1 more IV dose of Rocephin today but will not likely discharge on antibiotics. Clinical Quality Measures DVT/VTE Risk/Contraindication: Risk Factor Score Per Nursin RFS Level Per Nursing on Admit: 3=High LISETTE NEELY MD Jan 15, 2019 11:56
[2019-01-15 15:55] VITALS: BP 115/55
[2019-01-15] MEDS: cefTRIAXone 1,000 MG/SWFI 10 ML IV PUSH IV SCH ×2 (16:56)
[2019-01-15 19:24] VITALS: BP 141/64
[2019-01-15] MEDS: ACETAMINOPHEN 80 MG CHEW/MELT (TYLENOL) PO PRN (19:39)
[2019-01-16 00:59] VITALS: BP 114/69
[2019-01-16 04:05] VITALS: BP 142/65
[2019-01-16] MEDS: metFORMIN 500 MG (GLUCOPHAGE) TAB PO SCH (06:12)
[2019-01-16] MEDS: FAMOTIDINE 20 MG (PEPCID) TABLET PO SCH (06:47)
[2019-01-16 08:15] VITALS: BP 134/62
[2019-01-16] MEDS ORDERED: ACETAMINOPHEN 500 MG TAB (TYLENOL) PO PRN (08:30)
[2019-01-16 10:58] VITALS: BP 134/62
--- NOTE | 2019-01-16 12:35 | NUR ---
PT INFORMED OF NEGATIVE C-DIFF RESULTS VIA TELEPHONE.
--- NOTE | 2019-01-16 13:10 | Discharge Summary-Hospitalist ---
Diagnosis/Chief Complaint Date of Admission Jan 13, 2019 at 15:43 Date of Discharge Jan 16, 2019 at 10:50 Discharge Date: Jan 16, 2019 Discharge Summary Discharge Physical Exam Allergies: Coded Allergies: Iodinated Contrast- Oral and IV Dye (Verified Allergy, Unknown, 01/13/19) Uncoded Allergies: ASPRIN (Allergy, Mild, 03/02/10) Vitals & I&Os Vital Signs Date Time Temp Pulse Resp B/P (MAP) Pulse Ox O2 Delivery O2 Flow Rate FiO2 01/16/19 10:58 77 18 134/62 94 Room Air 01/16/19 08:15 98.3 General Appearance: No Apparent Distress HEENT: PERRL/EOMI Respiratory: Lungs Clear Cardiovascular: Regular Rate, Rhythm Gastrointestinal: Normal Bowel Sounds, Soft, Distended (Mild distention no tenderness noted.) Extremity: Normal Capillary Refill, Non Tender, Pedal Edema (TRACE) Skin: Warm/Dry Neurologic/Psychiatric: Alert, Oriented x3 Hospital Course Was the Problem List Reviewed?: Yes The patient presented emergency room with abdominal pain and distention. CT of the abdomen and pelvis revealed possible small bowel obstruction. She was placed on bowel rest with surgical consultation. Following day she began passing gas with loose stool. She also had some pyuria with bacteriuria with no reported urinary symptoms. She received 2 doses of Rocephin cultures returned with more than 3 different types of bacteria read out as contaminants culture not performed. On the day of her discharge she denied abdominal pain with frequent loose stools. Stool for C. difficile toxin was obtained and negative. She was not discharged on antibiotic therapy she was having no symptoms from urinary standpoint advised to follow-up with her primary care provider Dr. Benavides in 1-2 weeks and take when necessary Imodium OTC for significant diarrhea. Liver function tests were elevated on admission a little over 100 in regards to ALTs in AST and other studies were negative. The following morning a LTV and AST levels were decreased to the 30 and [address] scan did reveal changes compatible with hepatic steatosis with no biliary abnormalities being noted. Would advise a repeat CMP on return for follow-up. Patient was discharge voicing no complaints of abdominal pain tolerating solids without difficulty. Labs (last 24 hrs) Microbiology 01/16/19 C. difficile [facility] Antigen & Toxins - Final, Complete 01/13/19 Urine Culture - Final, Complete 3 or more isolates Patient resulted labs reviewed. Pending Labs Microbiology Date/Time Source Procedure Growth Status 01/16/19 10:08 Stool C. difficile [facility] Antigen & Toxins - Final Complete Discussion & Recommendations Discharge Planning: <30 minutes discharge planning Discharge Home Medications: Active Scripts Active Reported Pepcid (Famotidine) 20 Mg Tablet 20 Mg PO BID Vitamin B Complex 1 Each Tablet 1 Tab PO DAILY Metformin HCl 1,000 Mg Tablet 1,000 Mg PO BID Instructions to patient/family Please see electronic discharge instructions given to patient. Clinical Quality Measures DVT/VTE Risk/Contraindication: Risk Factor Score Per Nursin RFS Level Per Nursing on Admit: 3=High Copy Copies To 1: JOON BENAVIDES MD, MARK D MD Jan 16, 2019 13:10
== END 2019-01-16 10:50 | disposition home or self-care (01) | DRG 389 ==
LOC: EDUNIT# 12:38 → ER 12:43 → 4TH 15:43
PROVIDERS: ADMIT Family Medicine; ATTEND Family Medicine
DX: K56.7 Ileus, unspecified (principal); K52.9 Noninfective gastroenteritis and colitis, unspecified; N39.0 Urinary tract infection, site not specified; E86.0 Dehydration; E11.9 Type 2 diabetes mellitus without complications; K21.9 Gastro-esophageal reflux disease without esophagitis; K44.9 Diaphragmatic hernia without obstruction or gangrene; G47.30 Sleep apnea, unspecified; R51 Headache; R74.8 Abnormal levels of other serum enzymes; Z79.84 Long term (current) use of oral hypoglycemic drugs; Z87.891 Personal history of nicotine dependence
CPT/HCPCS: 36415; 74176; 80053; 81000; 83690; 85025; 87088; 87324; 87449; 90471; 90686; 96361; 96374; 96375

== ENCOUNTER 2019-09-01 13:12 | Observation (INO) | payer MEDICARE, BC ==
[2019-09-01] VITALS (7 sets, daily range): BP systolic 123–154; BP diastolic 62–84
[~2019-09-01] VITALS: Ht 149 cm; Wt 72.0 kg
[~2019-09-01 13:12] MED LIST changes: +FAMO-119 PO; +METF-399 PO; +VITA1TAB17 PO
[2019-09-01] MEDS ORDERED: NITROGLYCERIN 0.4 MG SL TABS BTL 25'S SL ONE (13:21)
[2019-09-01] MEDS ORDERED: NITROGLYCERIN 0.4 MG SL TABS BTL 25'S SL PRN ×2 (13:30→15:30)
--- NOTE | 2019-09-01 13:33 | ED Chest Pain ---
General Stated Complaint: CHEST/BACK HEAVINESS IRR HEART RATE Source: patient, family Exam Limitations: no limitations History of Present Illness Date Seen by Provider: Sep 01, 2019 Time Seen by Provider: 13:20 Initial Comments Patient presents to ER by private conveyance with family and chief complaint that starting this morning around 6 in the morning she had a sharp pain under her left breast lasting for a couple seconds. Then this afternoon she started to feel weird in her chest and she checked her pulse and no so about every fourth or fifth beat he would drop of the on her pulse left radial. She has never been told she has any coronary disease heart attacks dysrhythmias atrial fibrillation or irregular heart rate. She does not take blood thinners. She followed routinely with Dr. Benavides. She has not seen a fabric stretcher. She's not having pain in her chest just a weird feeling and pressure under her left breast. It is reproducible by direct palpation. She does not have shortness of breath cough fever chills nausea vomiting diarrhea or sweats. She does not have high blood pressure but she has diabetes. She denies hyperlipidemia smoking or significant familial history. Allergies and Home Medications Allergies Coded Allergies: Iodinated Contrast- Oral and IV Dye (Verified Allergy, Unknown, 01/13/19) Uncoded Allergies: ASPRIN (Allergy, Mild, 03/02/10) Home Medications Famotidine 20 Mg Tablet, 20 MG PO BID, (Reported) Metformin HCl 1,000 Mg Tablet, 1,000 MG PO BID, (Reported) Vitamin B Complex 1 Each Tablet, 1 TAB PO DAILY, (Reported) Patient Home Medication List Home Medication List Reviewed: Yes Review of Systems Review of Systems Constitutional: No chills, No diaphoresis, No fever, No malaise EENTM: No Blurred Vision, No Double Vision Respiratory: Denies Cough, Denies Shortness of Air Cardiovascular: See HPI; Denies Chest Pain (chest pressure left breast), Denies Edema Gastrointestinal: Denies Abdominal Pain, Denies Constipated, Denies Diarrhea, Denies Nausea Genitourinary: Denies Burning, Denies Discharge, Denies Drainage Musculoskeletal: No back pain, No joint pain Past Zlfoazi-Gdtist-Psxmma Hx Patient Social History Alcohol Use: Denies Use Recreational Drug Use: No Smoking Status: Never a Smoker 2nd Hand Smoke Exposure: Yes Recent Hopitalizations: No Seasonal Allergies Seasonal Allergies: No Past Medical History Surgeries: Yes (EGD/ESOPHAGEAL DILATIONS) Gallbladder, Oophorectomy, Tubal Ligation Respiratory: Yes (CPAP AT NIGHT) Sleep Apnea Currently Using CPAP: Yes (CPAP at night) Currently Using BIPAP: No Cardiac: No 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: Yes [employer]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00" Weight: 161lbs. 11.2oz. 73.978918uo; 31.2 BMI Method:Stated General Appearance: WD/WN, Mild Distress HEENT: PERRL/EOMI, Moist Mucous Membranes Respiratory: No Chest Non Tender (under the left breast chest discomfort repr oduced by direct palpation); Lungs Clear, Normal Breath Sounds, No Accessory Muscle Use, No Respiratory Distress Cardiovascular: Regular Rate, Rhythm, No Edema, Normal Peripheral Pulses Gastrointestinal: Normal Bowel Sounds, Non Tender, Soft Extremity: Normal Capillary Refill, Normal Inspection, Normal Range of Motion Progress/Results/Core Measures Results/Orders Lab Results Laboratory Tests Test 09/01/19 13:15 Range/Units White Blood Count 8.3 4.3-11.0 10^3/uL Red Blood Count 5.25 4.35-5.85 10^6/uL Hemoglobin 14.5 11.5-16.0 G/DL Hematocrit 45 35-52 % Mean Corpuscular Volume 85 80-99 FL Mean Corpuscular Hemoglobin 28 25-34 PG Mean Corpuscular Hemoglobin Concent 33 32-36 G/DL Red Cell Distribution Width 13.3 10.0-14.5 % Platelet Count 256 130-400 10^3/uL Mean Platelet Volume 10.8 H 7.4-10.4 FL Neutrophils (%) (Auto) 59 42-75 % Lymphocytes (%) (Auto) 31 12-44 % Monocytes (%) (Auto) 5 0-12 % Eosinophils (%) (Auto) 4 0-10 % Basophils (%) (Auto) 1 0-10 % Neutrophils # (Auto) 4.9 1.8-7.8 X 10^3 Lymphocytes # (Auto) 2.6 1.0-4.0 X 10^3 Monocytes # (Auto) 0.4 0.0-1.0 X 10^3 Eosinophils # (Auto) 0.4 H 0.0-0.3 10^3/uL Basophils # (Auto) 0.1 0.0-0.1 10^3/uL Prothrombin Time 13.2 12.2-14.7 SEC INR Comment 1.0 0.8-1.4 Activated Partial Thromboplast Time 28 24-35 SEC D-Dimer 0.47 0.00-0.49 UG/ML Sodium Level 142 135-145 MMOL/L Potassium Level 3.8 3.6-5.0 MMOL/L Chloride Level 105 98-107 MMOL/L Carbon Dioxide Level 27 21-32 MMOL/L Anion Gap 10 5-14 MMOL/L Blood Urea Nitrogen 9 7-18 MG/DL Creatinine 0.77 0.60-1.30 MG/DL Estimat Glomerular Filtration Rate > 60 BUN/Creatinine Ratio 12 Glucose Level 179 H 70-105 MG/DL Calcium Level 9.8 8.5-10.1 MG/DL Corrected Calcium 9.4 8.5-10.1 MG/DL Magnesium Level 1.9 1.6-2.4 MG/DL Total Bilirubin 0.4 0.1-1.0 MG/DL Aspartate Amino Transf (AST/SGOT) 41 H 5-34 U/L Alanine Aminotransferase (ALT/SGPT) 72 H 0-55 U/L Alkaline Phosphatase 100 40-136 U/L Myoglobin 48.4 10.0-92.0 NG/ML Troponin I < 0.028 <0.028 NG/ML B-Type Natriuretic Peptide 48.8 <100.0 PG/ML Total Protein 8.2 6.4-8.2 GM/DL Albumin 4.5 3.2-4.5 GM/DL My Orders Orders - NEL CLARK Continuous Ekg Monitoring (09/01/19 13:17) Ekg Tracing (09/01/19 13:17) Nitroglycerin 0.4 Mg Btl 25's (Nitrostat (09/01/19 13:21) Cbc With Automated Diff (09/01/19 13:28) Magnesium (09/01/19 13:28) Chest 1 View, Ap/Pa Only (09/01/19 13:28) Cardiac Profile 1 (09/01/19 13:28) Comprehensive Metabolic Panel (09/01/19:28) Myoglobin Serum (09/01/19:28) Protime With Inr (09/01/19:28) Partial Thromboplastin Time (09/01/19:28) O2 (09/01/19 13:28) Lipid Panel (09/02/19 06:00) Ed Iv/Invasive Line Start (09/01/19:) BNP (09/01/19:28) Fibrin Degradation Products (09/01/19:28) Nitroglycerin 0.4 Mg Btl 25's (Nitrostat (09/01/19 13:30) Medications Given in ED Current Medications Medications Dose Ordered Sig/Mary Route Start Time Stop Time Status Last Admin Dose Admin Nitroglycerin 0.4 mg UD PRN SL 09/01/19 13:30 09/01/19 13:22 0.4 MG Vital Signs/I&O 09/01/19 09/01/19 13:15 13:15 Temp 36.7 Pulse 93 Resp 24 B/P (MAP) 196/93 (127) Pulse Ox 97 O2 Delivery Room Air Progress Progress Note : Time: 14:24 Progress Note Heart score 4 points. High risk. 1265% 30-day MACE. Admit to hospital or observation. Further testing indicated. Initial ECG Impression Date: Sep 01, 2019 Initial ECG Impression Time: 13:16 Initial ECG Rate: 90 Initial ECG Rhythm: Normal Sinus Initial ECG Intervals: Normal Initial ECG Impression: Normal Comment No ST elevation or depression. Normal sinus rhythm. Diagnostic Imaging Diagonstic Imaging: Xray Plain Films/CT/US/NM/MRI: chest (1v) Comments No acute cardiopulmonary process. Reviewed: Reviewed by Me Departure Communication (Admissions) Time/Spoke to Admitting Phy: 14:40 Discussed case lab imaging EKG with Dr. Benavides and she agrees with observation for acute coronary syndrome rule out. Time/Spoke to Consulting Phy: 14:35 Discussed case lab EKG imaging findings with Dr. Valadez and he agrees with observation for acute coronary syndrome rule out. He would like Plavix 75 mg now Toprol-XL 25 mg now. Impression Primary Impression: Chest pain Qualified Codes: R07.9 - Chest pain, unspecified Additional Impression: Acute coronary syndrome without high troponin Disposition: ADMITTED INPATIENT Condition: Stable Admissions Decision to Admit Reason: Admit from ER (General) Decision to Admit/Date: Sep 01, 2019 Time/Decision to Admit Time: 14:30 Departure-Patient Inst. Referrals: JOON BENAVIDES MD (PCP/Family) Primary Care Physician NEL CLARK Sep 01, 2019 13:33
[2019-09-01 13:36] LABS: BASOPHILS # (AUTO) 0.1 10^3/uL (0.0-0.1); BASOPHILS % (AUTO) 1 % (0-10); EOSINOPHILS # (AUTO) 0.4 10^3/uL (0.0-0.3); EOSINOPHILS % (AUTO) 4 % (0-10); HEMATOCRIT 45 % (35-52); HEMOGLOBIN 14.5 G/DL (11.5-16.0); LYMPHOCYTES # (AUTO) 2.6 X 10^3 (1.0-4.0); LYMPHOCYTES % (AUTO) 31 % (12-44); MEAN CORPUSCULAR HEMOGLOBIN 28 PG (25-34); MEAN CORPUSCULAR HGB CONC 33 G/DL (32-36); MEAN CORPUSCULAR VOLUME 85 FL (80-99); MEAN PLATELET VOLUME 10.8 FL (7.4-10.4); MONOCYTES # (AUTO) 0.4 X 10^3 (0.0-1.0); MONOCYTES % (AUTO) 5 % (0-12); NEUTROPHILS # (AUTO) 4.9 X 10^3 (1.8-7.8); NEUTROPHILS % (AUTO) 59 % (42-75); PLATELET COUNT 256 10^3/uL (130-400); RED CELL DISTRIBUTION WIDTH 13.3 % (10.0-14.5); WHITE BLOOD COUNT 8.3 10^3/uL (4.3-11.0)
[2019-09-01 13:48] LABS: PROTHROMBIN TIME PATIENT 13.2 SEC (12.2-14.7)
[2019-09-01 13:58] LABS: ALANINE AMINOTRANSFERASE 72 U/L (0-55); ALBUMIN 4.5 GM/DL (3.2-4.5); ALKALINE PHOSPHATASE 100 U/L (40-136); BILIRUBIN,TOTAL 0.4 MG/DL (0.1-1.0); BUN/CREATININE RATIO 12; CALCIUM 9.8 MG/DL (8.5-10.1); CARBON DIOXIDE 27 MMOL/L (21-32); CHLORIDE 105 MMOL/L (98-107); CREATININE SERUM 0.77 MG/DL (0.60-1.30); GFR ESTIMATED > 60; GLUCOSE 179 MG/DL (70-105); MAGNESIUM 1.9 MG/DL (1.6-2.4); POTASSIUM 3.8 MMOL/L (3.6-5.0); SODIUM 142 MMOL/L (135-145); TOTAL PROTEIN 8.2 GM/DL (6.4-8.2)
--- NOTE | 2019-09-01 14:26 | Diagnostic Imaging Report ---
INDICATION: Chest pain. Arrhythmia. COMPARISON: 02/14/2013. FINDINGS: Single frontal view of the chest demonstrates normal heart size and pulmonary vascularity. The lungs are well aerated and clear. No large pleural effusion or pneumothorax is seen. The visualized osseous structures show no acute abnormalities. IMPRESSION: 1. No acute cardiopulmonary process. Dictated by: Dictated on workstation # [id number]
[2019-09-01] MEDS ORDERED: CLOPIDOGREL 75 MG (PLAVIX) TABLET PO ONE (15:00)
--- NOTE | 2019-09-01 15:00 | Consultation-Cardiology ---
HPI-Cardiology Cardiology Consultation: Date of Consultation 09/01/19 Time Seen by a Provider: 15:05 Date of Admission 09-01-19 Attending Physician Krystal Benavides MD Admitting Physician Krystal Benavides MD Consulting Physician LEXY BRANDON HPI: Chief Complaint: CP R/O ACS Ms. Elmore is a 69 year old female admitted to 512 from the ED. She reports she has had a feeling of an occ "skipped heartbeat" for several years. However within the last month the episodes of skipped heartbeat have been increasing in frequency and duration. She reports for the last month she has had episodes of chest heaviness with assoc lightheadedness at the time of the palpitations. She states while at work today she began to have palpitations (skipped beat) with associated left sided chest heaviness, mild in intensity, with radiation through to her back. She states that with exertion the sensation was worse and when she would sit to rest the sensation would improve, but never completely resolved. She reports she received nitro in the ED which has relieved the palpitations, but she continues to feel left sided chest heaviness, which is improved. She denies any syncope or near syncope. No c/o dyspnea. She reports mild bilat pedal edema which is least in the morning and worse at the end of the day. She denies any fever or chills. She denies any n/v/d. Review of Systems-Cardiology Review of Systems Constitutional: No chills, No fever, No malaise Eyes: No vision change Ears/Nose/Throat: No epistaxis, No recent hearing loss Respiratory: As described under HPI Cardiovascular: As described under HPI Gastrointestinal: No constipation, No diarrhea, No nausea, No vomiting Genitourinary: No dysuria Musculoskeletal: no symptoms reported Skin: No rash on exposed areas, No ulcerations on exposed areas Psychiatric/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: No anxiety, No depression, No seizure, No focal weakness, No syncope Hematologic: No bleeding abnormalities [id number]-Jnaqld Hx Patient Social History Alcohol Use: Denies Use Recreational Drug Use: No Smoking Status: Never a Smoker 2nd Hand Smoke Exposure: Yes Recent Foreign Travel: No Recent Infectious Disease Expo: No Hospitalization with Isolation: Denies Past Medical History PMH As described under Assessment. Family Medical History Family Medical History: She reports her mother had a valve replacement and was on warfarin tx. She reports her father had renal cancer and DM 2. She reports a brother who has recently had CABG. Allergies and Home Medications Allergies Coded Allergies: Iodinated Contrast Media (Verified Allergy, Unknown, 01/13/19) aspirin (Unverified Allergy, Unknown, 09/02/19) Home Medications Chromium Amino Acid Chelate 400 Mcg Tablet, 400 MCG PO DAILY, (Reported) Famotidine 20 Mg Tablet, 20 MG PO BID, (Reported) Metformin HCl 1,000 Mg Tablet, 1,000 MG PO BID, (Reported) Vitamin B Complex 1 Each Tablet, 1 TAB PO DAILY, (Reported) Patient Home Medication List Home Medication List Reviewed: Yes Physical Exam-Cardiology Physical Exam Vital Signs/I&O 09/01/19 09/02/19 09/02/19 09/02/19 21:00 00:00 00:00 00:57 Temp 36.0 Pulse 66 57 Resp 18 B/P (MAP) 100/62 (75) Pulse Ox 94 94 O2 Delivery Room Air Room Air Room Air 09/02/19 09/02/19 09/02/19 09/02/19 04:00 04:00 07:00 08:09 Temp 36.3 Pulse 70 80 72 Resp 16 B/P (MAP) 146/80 (102) 152/70 (97) Pulse Ox 94 96 O2 Delivery Room Air Room Air 09/02/19 08:18 Pulse 86 B/P (MAP) 163/83 (109) Pulse Ox 99 09/02/19 00:00 Intake Total 200 ml Balance 200 ml Capillary Refill : Less Than 3 Seconds Constitutional: AAO x 3, well-developed, well-nourished HEENT: PERRL, hearing is well preserved, oral hygience is good Neck: No carotid bruit; carotid pulses are 2 + bilaterally Respiratory: No accessory muscle use, No respiratory distress; chest expansion is symmetric, chest is bilaterally symmetric, lungs clear to auscultation Cardiovascular: regular rate-rhythm; No JVD; S1 and S2 Gastrointestinal: No tender; soft, round, audible bowel sounds Extremities: no lower extremity edema bilateral Neurologic/Psychiatric: grossly intact, power is 5/5 both on sides Skin: No rash on exposed areas, No ulcerations on exposed areas Data Review Labs Laboratory Tests 09/01/19 13:15: White Blood Count 8.3, Red Blood Count 5.25, Hemoglobin 14.5, Hematocrit 45, Mean Corpuscular Volume 85, Mean Corpuscular Hemoglobin 28, Mean Corpuscular Hemoglobin Concent 33, Red Cell Distribution Width 13.3, Platelet Count 256, Mean Platelet Volume 10.8H, Neutrophils (%) (Auto) 59, Lymphocytes (%) (Auto) 31, Monocytes (%) (Auto) 5, Eosinophils (%) (Auto) 4, Basophils (%) (Auto) 1, Neutrophils # (Auto) 4.9, Lymphocytes # (Auto) 2.6, Monocytes # (Auto) 0.4, Eosinophils # (Auto) 0.4H, Basophils # (Auto) 0.1, Prothrombin Time 13.2, INR Comment 1.0, Activated Partial Thromboplast Time 28, D-Dimer 0.47, Sodium Level 142, Potassium Level 3.8, Chloride Level 105, Carbon Dioxide Level 27, Anion Gap 10, Blood Urea Nitrogen 9, Creatinine 0.77, Estimat Glomerular Filtration Rate > 60, BUN/Creatinine Ratio 12, Glucose Level 179H, Calcium Level 9.8, Corrected Calcium 9.4, Magnesium Level 1.9, Total Bilirubin 0.4, Aspartate Amino Transf (AST/SGOT) 41H, Alanine Aminotransferase (ALT/SGPT) 72H, Alkaline Phosphatase 100, Myoglobin 48.4, Troponin I < 0.028, B-Type Natriuretic Peptide 48.8, Total Protein 8.2, Albumin 4.5 09/01/19 18:50: Troponin I < 0.028 09/01/19 20:59: Glucometer 174H 09/02/19 01:06: White Blood Count 7.6, Red Blood Count 4.80, Hemoglobin 13.4, Hematocrit 41, Mean Corpuscular Volume 86, Mean Corpuscular Hemoglobin 28, Mean Corpuscular Hemoglobin Concent 32, Red Cell Distribution Width 13.2, Platelet Count 215, Mean Platelet Volume 10.7H, Neutrophils (%) (Auto) 49, Lymphocytes (%) (Auto) 39, Monocytes (%) (Auto) 6, Eosinophils (%) (Auto) 5, Basophils (%) (Auto) 1, Neutrophils # (Auto) 3.8, Lymphocytes # (Auto) 2.9, Monocytes # (Auto) 0.5, Eosinophils # (Auto) 0.4H, Basophils # (Auto) 0.1, Sodium Level 142, Potassium Level 3.8, Chloride Level 110H, Carbon Dioxide Level 24, Anion Gap 8, Blood Urea Nitrogen 9, Creatinine 0.66, Estimat Glomerular Filtration Rate > 60, BUN/Creatinine Ratio 14, Glucose Level 145H, Calcium Level 8.9, Corrected Calcium 9.1, Magnesium Level 2.1, Total Bilirubin 0.3, Aspartate Amino Transf ( AST/SGOT) 28, Alanine Aminotransferase (ALT/SGPT) 56H, Alkaline Phosphatase 109, Troponin I < 0.028, Total Protein 6.8, Albumin 3.8, Triglycerides Level 90, Cholesterol Level 140, LDL Cholesterol Direct 89, VLDL Cholesterol 18, HDL Cho lesterol 42, Thyroid Stimulating Hormone (TSH) 0.52 Radiology NAME: ROXANA ELMORE MED REC#: [id number] PT STATUS: REG ER : 1950 PHYSICIAN: NEL CLARK MD ADMIT DATE: 09/01/19/ER Draft Date of Exam:09/01/19 CHEST 1 VIEW, AP/PA ONLY INDICATION: Chest pain. Arrhythmia. COMPARISON: 02/14/2013. FINDINGS: Single frontal view of the chest demonstrates normal heart size and pulmonary vascularity. The lungs are well aerated and clear. No large pleural effusion or pneumothorax is seen. The visualized osseous structures show no acute abnormalities. IMPRESSION: 1. No acute cardiopulmonary process. Dictated on workstation # [id number] Dict: 09/01/19 1424 Trans: 09/01/19 1425 [facility] [id number] Interpreted by: KOURTNEY MONTANO MD Electronically signed by: ECG Impression ECG Initial ECG Rhythm: Normal Sinus A/P-Cardiology Assessment/Admission Diagnosis Chest pain of undetermined etiology Palpitations of undetermined etiology HTN Elevated liver enzymes of undetermined etiology - management per medical services GERD DM 2 Sleep apnea - CPAP tx - followed by Dr. Alanis Family h/o CAD Discussion and Recomendations Chest discomfort of undetermined etiology - r/o ACS Further w/u to eval coronary perfusion - MPI in the morning Palpitations of undetermined etiology - continue tele to monitor for arrhythmia Echocardiogram to eval structure Monitor lab Liver enzyme elevation of undetermined etiology - management per medical services Continue BB Further recs will be based on her hospital course We would like to thank medical services for this consult Clinical Quality Measures AMI/AHF: ASA po Prior to arrival: No (ALLERGIC) LEXY LOPEZ Sep 01, 2019 15:00
[2019-09-01] MEDS ORDERED: morphine INJ 4 MG/ML 1 ML (VIAL/SYRINGE) IV PRN (15:30)
[2019-09-01] MEDS ORDERED: ONDANSETRON 4 MG/2 ML (SDV) Z0FRAN IV PRN (15:30)
[2019-09-01] MEDS ORDERED: LORazepam INJ 2 MG/ML (ATIVAN) VIAL IV PRN (15:30)
[2019-09-01] MEDS: inSUlin ASPART (NovoLOG) 1 UNIT/0.01 ML (CHARGE PER UNIT) SC SCH ×2 (15:52→21:03)
--- NOTE | 2019-09-01 16:00 | NUR ---
ROXANA ACOSTA admitted to room 512-1, with an admitting diagnosis of chest pain, on 09/01/19 from [place] via wheelchair, accompanied by staff.ROXANA ACOSTA introduced to surroundings, call light, bed controls, phone, TV, temperature control, lights, meal times, smoking policy, visitor policy, side rail policy, bathrooms and showers. Patient Rights given to patient in the handbook. ROXANA ACOSTA verbalizes understanding that [facility] is not responsible for the loss or damage to any personal effects or valuables that are kept in the patients posession during their hospitalization. The following Patient Care Plans were discussed with the pt: Discharge Planning. ROXANA ACOSTA verbalizes understanding of Interdisciplinary Patient Education. Patient and/or family were informed about the Rapid Response Team and its purpose.
[2019-09-01] MEDS ORDERED: CHRO400T10 PO (16:42)
[2019-09-01] MEDS ORDERED: FLU QUADRIvalent (5+ YOA) 2019-2020 (AFLURIA) 0.5 ML IM ONE (16:45)
--- NOTE | 2019-09-01 18:23 | Consultation-Cardiology ---
HPI-Cardiology Cardiology Consultation: Date of Consultation 09/01/19 Time Seen by a Provider: 17:45 Date of Admission Attending Physician Krystal Benavides MD Admitting Physician Krystal Benavides MD Consulting Physician LEXY GONZALEZ MD, MA, FACP, FACC, FSCAI, CCDS Physician requesting consult: Dr Benavides HPI: Chief Complaint: Reason for consultation: CP HPI Ms. Elmore is a 69 year old female admitted to [facility] from the ED. She reports she has had a feeling of an occ "skipped heartbeat" for several years. However within the last month the episodes of skipped heartbeat have been increasing in frequency and duration. She reports for the last month she has had episodes of chest heaviness with assoc lightheadedness at the time of the palpitations. She states while at work today she began to have palpitations (skipped beat) with associated left sided chest heaviness, mild in intensity, with radiation through to her back. She states that with exertion the sensation was worse and when she would sit to rest the sensation would improve, but never completely resolved. She reports she received nitro in the ED which has relieved the palpitations, but she continues to feel left sided chest heaviness, which is improved. She denies any syncope or near syncope. No c/o dyspnea. She reports mild bilat pedal edema which is least in the morning and worse at the end of the day. She denies any fever or chills. She denies any n/v/d. Review of Systems-Cardiology Review of Systems Constitutional: No chills, No fever, No malaise Eyes: No vision change Ears/Nose/Throat: No epistaxis, No recent hearing loss Respiratory: As described under HPI Cardiovascular: As described under HPI Gastrointestinal: No constipation, No diarrhea, No nausea, No vomiting Genitourinary: No dysuria Musculoskeletal: no symptoms reported Skin: No rash on exposed areas, No ulcerations on exposed areas Psychiatric/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: No anxiety, No depression, No seizure, No focal weakness, No syncope Hematologic: No bleeding abnormalities NLG-Nlmqda-Qoyrvg Hx Patient Social History Alcohol Use: Denies Use Recreational Drug Use: No Smoking Status: Former Smoker 2nd Hand Smoke Exposure: No Recent Foreign Travel: No Recent Infectious Disease Expo: No Hospitalization with Isolation: Denies Past Medical History PMH As described under Assessment. Family Medical History Family Medical History: She reports her mother had a valve replacement and was on warfarin tx. She reports her father had renal cancer and DM 2. She reports a brother who has recently had CABG. Allergies and Home Medications Allergies Coded Allergies: Iodinated Contrast Media (Verified Allergy, Unknown, 01/13/19) Uncoded Allergies: ASPRIN (Allergy, Mild, 03/02/10) Home Medications Chromium Amino Acid Chelate 400 Mcg Tablet, 400 MCG PO DAILY, (Reported) Famotidine 20 Mg Tablet, 20 MG PO BID, (Reported) Metformin HCl 1,000 Mg Tablet, 1,000 MG PO BID, (Reported) Vitamin B Complex 1 Each Tablet, 1 TAB PO DAILY, (Reported) Patient Home Medication List Home Medication List Reviewed: Yes Physical Exam-Cardiology Physical Exam Vital Signs/I&O 09/01/19 09/01/19 09/01/19 09/01/19 13:15 13:15 15:00 15:10 Temp 36.7 36.8 Pulse 93 81 76 Resp 24 18 20 B/P (MAP) 196/93 (127) 118/58 142/63 (89) Pulse Ox 97 94 96 O2 Delivery Room Air Room Air 09/01/19 09/01/19 09/01/19 09/01/19 15:15 15:23 15:41 15:45 Temp 36.5 36.3 36.5 Pulse 86 76 108 73 Resp 18 20 18 B/P (MAP) 141/62 (88) 142/62 (88) 130/70 (90) Pulse Ox 95 96 95 O2 Delivery Room Air Room Air Room Air 09/01/19 09/01/19 16:00 16:36 Temp 36.3 36.3 Pulse 68 108 Resp 18 20 B/P (MAP) 123/67 (85) 142/62 Pulse Ox 93 96 O2 Delivery Room Air Room Air Capillary Refill : Less Than 3 Seconds Constitutional: AAO x 3, well-developed, well-nourished HEENT: PERRL, hearing is well preserved, oral hygience is good Neck: No carotid bruit; carotid pulses are 2 + bilaterally Respiratory: No accessory muscle use, No respiratory distress; chest expansion is symmetric, chest is bilaterally symmetric, lungs clear to auscultation Cardiovascular: regular rate-rhythm; No JVD; S1 and S2 Gastrointestinal: No tender; soft, round, audible bowel sounds Extremities: no lower extremity edema bilateral Neurologic/Psychiatric: grossly intact, power is 5/5 both on sides Skin: No rash on exposed areas, No ulcerations on exposed areas Data Review Labs Laboratory Tests 09/01/19 13:15: White Blood Count 8.3, Red Blood Count 5.25, Hemoglobin 14.5, Hematocrit 45, Mean Corpuscular Volume 85, Mean Corpuscular Hemoglobin 28, Mean Corpuscular Hemoglobin Concent 33, Red Cell Distribution Width 13.3, Platelet Count 256, Mean Platelet Volume 10.8H, Neutrophils (%) (Auto) 59, Lymphocytes (%) (Auto) 31, Monocytes (%) (Auto) 5, Eosinophils (%) (Auto) 4, Basophils (%) (Auto) 1, Neutrophils # (Auto) 4.9, Lymphocytes # (Auto) 2.6, Monocytes # (Auto) 0.4, Eosinophils # (Auto) 0.4H, Basophils # (Auto) 0.1, Prothrombin Time 13.2, INR Comment 1.0, Activated Partial Thromboplast Time 28, D-Dimer 0.47, Sodium Level 142, Potassium Level 3.8, Chloride Level 105, Carbon Dioxide Level 27, Anion Gap 10, Blood Urea Nitrogen 9, Creatinine 0.77, Estimat Glomerular Filtration Rate > 60, BUN/Creatinine Ratio 12, Glucose Level 179H, Calcium Level 9.8, Corrected Calcium 9.4, Magnesium Level 1.9, Total Bilirubin 0.4, Aspartate Amino Transf (AST/SGOT) 41H, Alanine Aminotransferase (ALT/SGPT) 72H, Alkaline Phosphatase 100, Myoglobin 48.4, Troponin I < 0.028, B-Type Natriuretic Peptide 48.8, Total Protein 8.2, Albumin 4.5 A/P-Cardiology Assessment/Admission Diagnosis Chest pain of undetermined etiology Palpitations of undetermined etiology HTN Elevated liver enzymes of undetermined etiology - management per Medical Services GERD DM 2 Sleep apnea - CPAP tx - followed by Dr. Alanis Family h/o CAD Discussion and Recomendations * Serial cardiac enzymes and ECGs to eval for ACS * If no CT, then MPI for cor risk strat * Palpitations of undetermined etiology - continue tele to monitor for arrhythmia * Echocardiogram to eval for structural heart disease * Monitor lab * Liver enzyme elevation of undetermined etiology - management per Medical Services * Continue BB and antiplatelet therapy * Further recs will be based on her hospital course * We would like to thank Medical Services for this consult Clinical Quality Measures AMI/AHF: ASA po Prior to arrival: No (ALLERGIC) DVT/VTE Risk/Contraindication: Risk Factor Score Per Nursin RFS Level Per Nursing on Admit: 3=High LEXY GONZALEZ MD FACP FAC CCDS Sep 01, 2019 18:23
[2019-09-01] MEDS ORDERED: REGADENOSON 0.4 MG/5 ML SYR (LEXISCAN) IV ONE (18:30)
[2019-09-01] MEDS ORDERED: ACETAMINOPHEN 325 MG TABLET PO PRN (19:45)
[2019-09-01] MEDS ORDERED: FAMOTIDINE 20 MG (PEPCID) TABLET PO SCH (21:00)
[2019-09-02] VITALS (7 sets, daily range): BP systolic 100–165; BP diastolic 62–83
[2019-09-02 01:17] LABS: BASOPHILS # (AUTO) 0.1 10^3/uL (0.0-0.1); BASOPHILS % (AUTO) 1 % (0-10); EOSINOPHILS # (AUTO) 0.4 10^3/uL (0.0-0.3); EOSINOPHILS % (AUTO) 5 % (0-10); HEMATOCRIT 41 % (35-52); HEMOGLOBIN 13.4 G/DL (11.5-16.0); LYMPHOCYTES # (AUTO) 2.9 X 10^3 (1.0-4.0); LYMPHOCYTES % (AUTO) 39 % (12-44); MEAN CORPUSCULAR HEMOGLOBIN 28 PG (25-34); MEAN CORPUSCULAR HGB CONC 32 G/DL (32-36); MEAN CORPUSCULAR VOLUME 86 FL (80-99); MEAN PLATELET VOLUME 10.7 FL (7.4-10.4); MONOCYTES # (AUTO) 0.5 X 10^3 (0.0-1.0); MONOCYTES % (AUTO) 6 % (0-12); NEUTROPHILS # (AUTO) 3.8 X 10^3 (1.8-7.8); NEUTROPHILS % (AUTO) 49 % (42-75); PLATELET COUNT 215 10^3/uL (130-400); RED CELL DISTRIBUTION WIDTH 13.2 % (10.0-14.5); WHITE BLOOD COUNT 7.6 10^3/uL (4.3-11.0)
[2019-09-02 01:37] LABS: ALANINE AMINOTRANSFERASE 56 U/L (0-55); ALBUMIN 3.8 GM/DL (3.2-4.5); ALKALINE PHOSPHATASE 109 U/L (40-136); BILIRUBIN,TOTAL 0.3 MG/DL (0.1-1.0); BUN/CREATININE RATIO 14; CALCIUM 8.9 MG/DL (8.5-10.1); CARBON DIOXIDE 24 MMOL/L (21-32); CHLORIDE 110 MMOL/L (98-107); CHOLESTEROL 140 MG/DL (< 200); CREATININE SERUM 0.66 MG/DL (0.60-1.30); GFR ESTIMATED > 60; GLUCOSE 145 MG/DL (70-105); HDL CHOLESTEROL 42 MG/DL (40-60); MAGNESIUM 2.1 MG/DL (1.6-2.4); POTASSIUM 3.8 MMOL/L (3.6-5.0); SODIUM 142 MMOL/L (135-145); TOTAL PROTEIN 6.8 GM/DL (6.4-8.2); TRIGLYCERIDES 90 MG/DL (<150); VLDL CHOLESTEROL 18 MG/DL (5-40)
[2019-09-02] MEDS: inSUlin ASPART (NovoLOG) 1 UNIT/0.01 ML (CHARGE PER UNIT) SC SCH ×2 (04:55→11:21)
[2019-09-02] MEDS ORDERED: CATHETER FLUSH 10 ML SYR IV PRN (07:45)
[2019-09-02] MEDS ORDERED: REGADENOSON 0.4 MG/5 ML SYR (LEXISCAN) IV ONE (07:57)
--- NOTE | 2019-09-02 08:29 | Progress Note - Cardiology ---
Cardiology SOAP Progress Note Subjective: No c/o CP, palpitations, syncope, near syncope or dyspnea. Objective: I&O/Vital Signs 09/02/19 09/02/19 09/02/19 09/02/19 00:00 00:00 00:57 04:00 Temp 36.0 Pulse 66 57 Resp 18 B/P (MAP) 100/62 (75) Pulse Ox 94 O2 Delivery Room Air Room Air Room Air 09/02/19 09/02/19 09/02/19 09/02/19 04:00 07:00 08:09 08:18 Temp 36.3 Pulse 70 80 72 86 Resp 16 B/P (MAP) 146/80 (102) 152/70 (97) 163/83 (109) Pulse Ox 94 96 99 O2 Delivery Room Air 09/02/19 00:00 Intake Total 200 ml Balance 200 ml Weight (Pounds): 161 Weight (Ounces): 11.2 Weight (Calculated Kilograms): 73.432427 Constitutional: AAO x 3, well-developed, well-nourished Respiratory: No accessory muscle use, No respiratory distress; chest expansion is symmetric, chest is bilaterally symmetric, lungs clear to auscultation Cardiovascular: regular rate-rhythm; No JVD; S1 and S2 Gastrointestional: No tender; soft, round, audible bowel sounds Extremities: no lower extremity edema bilateral Neurologic/Psychiatric: grossly intact, power is 5/5 both on sides Skin: No rash on exposed areas, No ulcerations on exposed areas Results/Procedures: Labs Laboratory Tests 09/01/19 13:15: White Blood Count 8.3, Red Blood Count 5.25, Hemoglobin 14.5, Hematocrit 45, Mean Corpuscular Volume 85, Mean Corpuscular Hemoglobin 28, Mean Corpuscular Hemoglobin Concent 33, Red Cell Distribution Width 13.3, Platelet Count 256, Mean Platelet Volume 10.8H, Neutrophils (%) (Auto) 59, Lymphocytes (%) (Auto) 31, Monocytes (%) (Auto) 5, Eosinophils (%) (Auto) 4, Basophils (%) (Auto) 1, Neutrophils # (Auto) 4.9, Lymphocytes # (Auto) 2.6, Monocytes # (Auto) 0.4, Eosinophils # (Auto) 0.4H, Basophils # (Auto) 0.1, Prothrombin Time 13.2, INR Comment 1.0, Activated Partial Thromboplast Time 28, D-Dimer 0.47, Sodium Level 142, Potassium Level 3.8, Chloride Level 105, Carbon Dioxide Level 27, Anion Gap 10, Blood Urea Nitrogen 9, Creatinine 0.77, Estimat Glomerular Filtration Rate > 60, BUN/Creatinine Ratio 12, Glucose Level 179H, Calcium Level 9.8, Corrected Calcium 9.4, Magnesium Level 1.9, Total Bilirubin 0.4, Aspartate Amino Transf (AST/SGOT) 41H, Alanine Aminotransferase (ALT/SGPT) 72H, Alkaline Phosphatase 100, Myoglobin 48.4, Troponin I < 0.028, B-Type Natriuretic Peptide 48.8, Total Protein 8.2, Albumin 4.5 09/01/19 18:50: Troponin I < 0.028 09/01/19 20:59: Glucometer 174H 09/02/19 01:06: White Blood Count 7.6, Red Blood Count 4.80, Hemoglobin 13.4, Hematocrit 41, Mean Corpuscular Volume 86, Mean Corpuscular Hemoglobin 28, Mean Corpuscular Hemoglobin Concent 32, Red Cell Distribution Width 13.2, Platelet Count 215, Mean Platelet Volume 10.7H, Neutrophils (%) (Auto) 49, Lymphocytes (%) (Auto) 39, Monocytes (%) (Auto) 6, Eosinophils (%) (Auto) 5, Basophils (%) (Auto) 1, Neutrophils # (Auto) 3.8, Lymphocytes # (Auto) 2.9, Monocytes # (Auto) 0.5, Eosinophils # (Auto) 0.4H, Basophils # (Auto) 0.1, Sodium Level 142, Potassium Level 3.8, Chloride Level 110H, Carbon Dioxide Level 24, Anion Gap 8, Blood Urea Nitrogen 9, Creatinine 0.66, Estimat Glomerular Filtration Rate > 60, BUN/Creatinine Ratio 14, Glucose Level 145H, Calcium Level 8.9, Corrected Calcium 9.1, Magnesium Level 2.1, Total Bilirubin 0.3, Aspartate Amino Transf (AST/SGOT) 28, Alanine Aminotransferase (ALT/SGPT) 56H, Alkaline Phosphatase 109, Troponin I < 0.028, Total Protein 6.8, Albumin 3.8, Triglycerides Level 90, Cholesterol Level 140, LDL Cholesterol Direct 89, VLDL Cholesterol 18, HDL Cholesterol 42, Thyroid Stimulating Hormone (TSH) 0.52 Laboratory Tests 09/01/19 13:15 09/02/19 01:06 A/P: Assessment: Chest pain, noncardiac, MPI of 09/02/19 did not show cor ischemia or infarction, LVEF 71% Palpitations due to isolated PVCs (documented on ECG during MPI of 09/02/19) HTN Elevated liver enzymes of undetermined etiology - management per Medical Services GERD DM 2 Sleep apnea - CPAP tx - followed by Dr. Alanis Family h/o CAD Plan: * No evidence of ACS - MPI this morning - results pending * Palpitations of undetermined etiology - continue tele to monitor for ar rhythmia * Echocardiogram to eval for structural heart disease * Monitor lab * Liver enzyme elevation of undetermined etiology - management per Medical Services * Continue BB and antiplatelet therapy Physician Assessment Physician Assessment No cp or syncope or shortness of breath Occ feeling of palp (flip-flop lasting a second or so) Lungs: good bilat air entry Cor: reg Ext: no c/c/e A&R * As documented in our note above that I updated (italics) and as noted below * I discussed her cardiac w/u with her and answered questions * I discussed her case with Dr Benavides * BB for hypertension and control of palpitations * D/c Plavix because no evidence of ACS or of cor ischemia * Risk factor mod discussed * Outpt f/u advised Clinical Quality Measures AMI/AHF: ASA po Prior to arrival: No (ALLERGIC) LEXY LOPEZ [employer] FORCE CAPTAIN Sep 02, 2019 08:29 LEXY GONZALEZ MD FACP FAC CCDS Sep 02, 2019 09:58
--- NOTE | 2019-09-02 08:50 | History & Physical ---
History of Present Illness History of Present Illness Reason for visit/HPI THIS WILL SERVE THE SHORT STAY SUMMARY FOR THIS PATIENT. PT REPORTS THAT SHE HAS HAD SOME INTERMITTENT CHEST HEAVINESS AND A SENSATION OF PALPITATIONS WITH HER HEART SKIPPING AT TIMES. SHE STATES THAT THIS HAS BEEN HAPPENING FOR A FEW WEEKS - AND HAS BEEN GETTING WORSE OVER THE PAST FEW WEEKS WHEN SHE IS AT WORK IS USUALLY WHEN SHE FEELS THE SENSATIONS. Date of Admission Sep 01, 2019 at 14:46 Date Seen by a Provider: Sep 02, 2019 Time Seen by a Provider: 09:20 I consulted on this patient on 09/02/19 08:50 Attending Physician Joon Benavides MD Admitting Physician Joon Benavides MD Consult CARDIOLOGY Allergies and Home Medications Allergies Coded Allergies: Iodinated Contrast Media (Verified Allergy, Unknown, 01/13/19) aspirin (Unverified Allergy, Unknown, 09/02/19) Home Medications Atorvastatin Calcium 40 Mg Tablet, 40 MG PO HS Prescribed by: JOON BENAVIDES on 09/02/19 0949 Chromium Amino Acid Chelate 400 Mcg Tablet, 400 MCG PO DAILY, (Reported) Famotidine 20 Mg Tablet, 20 MG PO BID, (Reported) Lisinopril 5 Mg Tablet, 5 MG PO DAILY@0900 Prescribed by: JOON BENAVIDES on 09/02/19 0949 Metformin HCl 1,000 Mg Tablet, 1,000 MG PO BID, (Reported) Metoprolol Succinate 25 Mg Tab.er.24h, 25 MG PO DAILY Prescribed by: JOON BENAVIDES on 09/02/19 0949 Vitamin B Complex 1 Each Tablet, 1 TAB PO DAILY, (Reported) Patient Home Medication List Home Medication List Reviewed: Yes Past Qhwbksx-Joemvy-Kfrxic Hx Past Med/Social Hx: Reviewed Nursing Past Med/Soc Hx, Reviewed and Corrections made Patient Social History Marrital Status: Employed/Student: part-time employed Alcohol Use: Denies Use Recreational Drug Use: No Smoking Status: Former Smoker Former Smoker, Quit: Sep 03, 2005 2nd Hand Smoke Exposure: No Physical Abuse Screen: No Sexual Abuse: No Recent Foreign Travel: No Contact w/other who traveled: No Recent Hopitalizations: No Recent Infectious Disease Expo: No Seasonal Allergies Seasonal Allergies: No Past Medical History Surgeries: Appendectomy, Gallbladder, Oophorectomy, Tubal Ligation Currently Using CPAP: Yes (CPAP at night) Currently Using BIPAP: No Cardiac: Hypertension Menopausal Genitourinary: Kidney Stones Gastrointestinal: Gastroesophageal Reflux, Diverticulosis, Hiatal Hernia Endocrine: Diabetes, Non-Insulin dep HEENT: Cataract Loss of Vision: Denies Hearing Impairment: Denies History of Blood Disorders: No Adverse Reaction to Blood Cavanaugh: No Family History Reviewed and Corrections made Cancer, Diabetes Review of Systems Constitutional: No chills, No fever, No malaise, No weakness EENTM: No hoarseness, No throat pain Respiratory: No cough, No dyspnea on exertion, No short of breath Cardiovascular: chest pain, palpitations Gastrointestinal: No abdominal pain, No nausea, No vomiting Genitourinary: no symptoms reported Musculoskeletal: no symptoms reported Skin: no symptoms reported Psychiatric/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: Denies Anxiety, Denies Depressed, Denies Weakness All Other Systems Reviewed Negative Unless Noted: Yes Physical Exam Vital Signs Vital Signs - First Documented 09/01/19 13:15 Temp 36.7 Pulse 93 Resp 24 B/P (MAP) 196/93 (127) Pulse Ox 97 O2 Delivery Room Air Capillary Refill : Less Than 3 Seconds Height, Weight, BMI Height: 5'1.00" Weight: 161lbs. 11.2oz. 73.306531mc; 32.43 BMI Method:Stated General Appearance: No Apparent Distress, WD/WN Eyes: Bilateral Eye Normal Inspection, Bilateral Eye PERRL, Bilateral Eye EOMI HEENT: PERRL/EOMI, Pharynx Normal Neck: Full Range of Motion, Non Tender, Supple Respiratory: Chest Non Tender, Lungs Clear, Normal Breath Sounds, No Accessory Muscle Use Cardiovascular: Regular Rate, Rhythm, No Edema Gastrointestinal: Normal Bowel Sounds, Non Tender, Soft Rectal: Deferred Back: Normal Inspection Extremity: Normal Capillary Refill, Normal Inspection, Non Tender, No Calf T enderness Neurologic/Psychiatric: Alert, Oriented x3, No Motor/Sensory Deficits, Normal 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 HYPERTENSION - PT TO CONTINUE WITH BETA YASIR AND SHAHEED-INHIBITOR ON DISCHARGE. DIABETES MELLITUS - CONTINUE METFORMIN ON DISCHARGE - HER HGBA1C IN THE OFFICE SHOWS SERIALLY FAIRLY GOOD DIABETIC CONTROL. ELEVATED LIVER ENZYMES - FATTY LIVER - CONTINUE WITH RECOMMENDATIONS FOR LOW FAT DIET AND WEIGHT LOSS ESOPHAGEAL REFLUX - CONTINUE WITH PEPCID. Admission Diagnosis CHEST HEAVINESS/PAIN PALPITATIONS HYPERTENSION DIABETES MELLITUS ELEVATED LIVER ENZYMES ESOPHAGEAL REFLUX EXERCISE INTOLERANCE Admission Status: Observation Clinical Quality Measures AMI/AHF: ASA po Prior to arrival: No (ALLERGIC) DVT/VTE Risk/Contraindication: Risk Factor Score Per Nursin RFS Level Per Nursing on Admit: 3=High JOON BENAVIDES MD Sep 02, 2019 08:50
[2019-09-02] MEDS ORDERED: CLOPIDOGREL 75 MG (PLAVIX) TABLET PO SCH (09:00)
[2019-09-02] MEDS ORDERED: lisINopril 5 MG (PRINIVIL) TABLET PO SCH (09:00)
[2019-09-02] MEDS ORDERED: METO-387 PO (09:49)
[2019-09-02] MEDS ORDERED: LISI-556 PO (09:49)
[2019-09-02] MEDS ORDERED: ATOR40TA PO (09:49)
[2019-09-02] MEDS ORDERED: CLOP75TA28 PO (09:52)
--- NOTE | 2019-09-02 09:54 | Discharge Inst-Complex ---
PDI Reconcile Patient Problems Problems Reviewed?: Yes Med Rec & Follow Up Appt. Prescription: Transmitted to Pharmacy Activity, Diet and PDI Resume Normal Activity: Yes Discharge Diet: ADA Diet Diet After 24 Hours: Clear Liquid if Nauseous Drink 6-8 Glasses of Fluid/Day: Yes Driving Instructions: You May Drive May Return to Work/School/Day: May Return to Work Return to The Hospital For: recurrent chest pain, persistent palpitations, or any life-threatening illness or injury Symptoms to Reoprt to : Appetite Changes, Bleeding Excessive, Fever Over 101 Degrees F, Pain/Pressure in Chest, Heart Beat Irreg/Pounding, Pain/Pressure in Jaw, Questions/Concerns For Problems or Questions: Contact Your Physician, Go to Emergency Room JOON ARCEO MD Sep 02, 2019 09:54
--- NOTE | 2019-09-02 11:31 | Diagnostic Imaging Report ---
PROCEDURE: US Renal Bilateral. TECHNIQUE: Multiple real-time grayscale images were obtained over the kidneys in various projections bilaterally. INDICATION: Atypical contour upper pole of the right kidney was noted at nonenhanced CT 01/13/2019. FINDINGS: Kidneys appear unremarkable. No sonographic findings of solid or cystic renal mass, the right 10.0, the left 11.9 cm. Echotexture and cortical thickness unremarkable. No echogenic or shadowing stone no hydronephrosis. The bladder appeared normal. IMPRESSION: Normal sonographic appearance of the unobstructed and nonfocal kidneys. In particular no findings to suggest a right upper pole mass. Dictated by: Dictated on workstation # [id number]
--- NOTE | 2019-09-02 13:25 | STRESS TEST ---
DATE OF SERVICE: 09/02/2019 RESTING AND POST REGADENOSON TECHNETIUM-99M TETROFOSMIN SPECT CT IMAGING Baseline images were carried out after injection of 10.69 mCi of technetium-99m Tetrofosmin. This was followed by 0.4 mg of regadenoson and 32.2 mCi of technetium-99m Tetrofosmin for stress imaging. The electrocardiogram showed sinus rhythm. Isolated premature ventricular contractions were seen. These were infrequent. The electrocardiogram did not change significantly with the regadenoson infusion. She noted mild shortness of breath and abdominal cramping following regadenoson infusion, which resolved in a few minutes. Review of images at rest and following stress does not indicate any significant perfusion defects consistent with myocardial ischemia or infarction. Gated images show normal global left ventricular systolic function, normal regional wall motion. Left ventricular ejection fraction is calculated to be 71%. Left ventricular end diastolic volume is 40 mL. TID is absent (1.11). CONCLUSIONS: 1. No evidence of any significant myocardial ischemia or infarction on this study. 2. Normal regional wall motion. 3. Normal global left ventricular systolic function with a calculated ejection fraction of 71%. Job ID: [id number] DocumentID: [id number] Dictated Date: 09/02/2019 09:30:36 Manager Floor Date: 09/02/2019 13:25:03 Dictated By: LEXY GONZALEZ MD, MA, FACP, FACC,
[2019-09-03] MEDS ORDERED: FAMOTIDINE 20 MG (PEPCID) TABLET PO SCH (09:00)
== END 2019-09-02 13:14 | disposition home or self-care (01) ==
LOC: EDUNIT# 13:12 → ER 13:14 → CSD 14:46
PROVIDERS: ADMIT Family Medicine; ATTEND Family Medicine
DX: I24.9 Acute ischemic heart disease, unspecified (principal); G47.30 Sleep apnea, unspecified; K21.9 Gastro-esophageal reflux disease without esophagitis; E11.9 Type 2 diabetes mellitus without complications; R94.5 Abnormal results of liver function studies; R00.2 Palpitations; Z88.6 Allergy status to analgesic agent; Z91.041 Radiographic dye allergy status; Z79.84 Long term (current) use of oral hypoglycemic drugs; Z98.51 Tubal ligation status; Z87.891 Personal history of nicotine dependence; Z83.3 Family history of diabetes mellitus; Z80.9 Family history of malignant neoplasm, unspecified
CPT/HCPCS: 36415; 71045; 76770; 78452; 80053; 80061; 82962; 83735; 83874; 83880; 84443; 84484; 85025; 85379; 85610; 85730; 93005; 93017; 93306

== ENCOUNTER 2019-09-02 13:26 | Outpatient (RCR) | payer MEDICARE, BC ==
[~2019-09-02 13:26] MED LIST changes: +ATOR40TA PO; +CHRO400T10 PO; +CLOP75TA28 PO; +LISI-556 PO; +METO-387 PO
[2019-09-15] MEDS ORDERED: PANT40TA2 PO (13:28)
[2019-11-02] MEDS ORDERED: FAMO-119 PO (12:13)
[2019-11-02] MEDS ORDERED: MULT1CAP27 PO (12:13)
[2019-11-26] MEDS ORDERED: HYDR-3455 PO (08:00)
[2019-11-26] MEDS ORDERED: VALA1000 PO (08:00)
== END 2019-12-01 | disposition home or self-care (01) ==
LOC: CARD 13:26
PROVIDERS: ATTEND Nurse Practitioner Family
DX: I49.3 Ventricular premature depolarization (principal); I49.1 Atrial premature depolarization

== ENCOUNTER 2019-11-02 05:41 | Outpatient (CLI) | payer MEDICARE, BC ==
[~2019-11-02] VITALS: Ht 152 cm; Wt 72.0 kg
[2019-11-02] MEDS ORDERED: FAMO-119 PO (12:13)
[2019-11-02] MEDS ORDERED: MULT1CAP27 PO (12:13)
== END 2019-11-02 12:17 ==
LOC: PREOP 05:41
PROVIDERS: ATTEND Specialist
DX: Z01.818 Encounter for other preprocedural examination (principal)

== ENCOUNTER 2019-11-04 10:45 | Day surgery (SDC) | payer MEDICARE, BC ==
[~2019-11-04] VITALS: Ht 152 cm; Wt 72.0 kg
[~2019-11-04 10:45] MED LIST changes: +MULT1CAP27 PO
[2019-11-04 10:50] VITALS: BP 144/68
[2019-11-04] MEDS ORDERED: MOXIFLOXACIN OPHTH SOLN 5 MG/ML 0.3 ML SYRINGE OP ONE (11:00)
[2019-11-04] MEDS ORDERED: POVIDONE (BETADINE) OPHTH SOLN 5% 30 ML OP ONE (11:00)
[2019-11-04] MEDS ORDERED: LIDOCAINE PF 1% 2 ML AMP IR PRN (11:00)
[2019-11-04] MEDS ORDERED: TIMOLOL MALEATE 0.5% 5 ML (TIMOPTIC) BTL OU PRN (11:00)
[2019-11-04] MEDS: TETRACAINE 0.5% OPHTH SOLN 4 ML BTL (SINGLE DOSE ONLY) OU PRN ×4 (11:05→11:35)
[2019-11-04] MEDS: CYCLOPENTOLATE 1% (CYCLOGYL) 2 ML DROPS OP SCH ×3 (11:15→11:35)
[2019-11-04] MEDS: PHENYLEPHRINE 10% OPHTH (NEO-SYN) 5 ML BTL OU SCH ×3 (11:15→11:35)
--- NOTE | 2019-11-04 11:45 | Ophthalmologist Pre-Op Note ---
Pre-Operative Progress Note H&P Reviewed The H&P was reviewed, patient examined and no changes noted. Date H&P Reviewed: Nov 04, 2019 Time H&P Reviewed: 11:45 Pre-Op Dx Cataract, Left Eye JUAN ANTONIO GUTIERREZ MD Nov 04, 2019 11:45 POS
[2019-11-04] MEDS ORDERED: MIDAZOLAM 2 MG/2 ML (VERSED) VIAL ONE (11:51)
--- NOTE | 2019-11-04 12:12 | Ophthalmology Operative Report ---
Cataract removal/placement IOL PREOPERATIVE DIAGNOSIS: Cataract Left Eye POSTOPERATIVE DIAGNOSIS: Cataract Left Eye PROCEDURE: Cataract removal and placement of posterior chamber implant, left eye SURGEON: Reji Gutierrez ANESTHESIA: Topical with sedation COMPLICATIONS: None ESTIMATED BLOOD LOSS: Minimal DESCRIPTION OF PROCEDURE: After proper informed consent was obtained, the patient, a 69 female, was taken to the Operating Room and the left eye was anesthetized with tetracaine. The left eye was then prepped and draped in the usual manner. A wire lid speculum was placed. A paracentesis was made at the left hand position. Preservative free lidocaine was injected into the anterior chamber followed by viscoelastic. A clear corneal incision was made in the temporal position. A capsulorrhexis was preformed and the central nuclear and cortical material were removed. The posterior capsule was polished and an Vasquez 20.5 AU00T0 was placed into the capsular bag. The residual viscoelastic was aspirated and balanced saline solution was injected into the anterior chamber. Moxifloxacin was injected into the anterior chamber. The wound was checked and found to be water tight. The patient tolerated the procedure well without complications. REJI GUTIERREZ MD Nov 04, 2019 12:11 POS
[2019-11-04 12:20] VITALS: BP 162/88
[2019-11-04] MEDS ORDERED: acetaZOLAMIDE ER 500 MG CAP (DIAMOX SEQUELS) PO ONE (12:30)
--- NOTE | 2019-11-04 12:44 | Anesthesia-General Post-Op ---
MAC Patient Condition Mental Status/LOC: Same as Preop Cardiovascular: Satisfactory Nausea/Vomiting: Absent Respiratory: Satisfactory Pain: Controlled Complications: Absent Post Op Complications Complications None Follow Up Care/Instructions Patient Instructions None needed. Anesthesiology Discharge Order Discharge Order Patient is doing well, no complaints, stable vital signs, no apparent adverse anesthesia problems. No complications reported per nursing. ИРИНА RIVERA CRNA Nov 04, 2019 12:44 POS
== END 2019-11-04 12:20 | disposition home or self-care (01) ==
LOC: SDC 10:45
PROVIDERS: ATTEND Specialist
DX: E11.36 Type 2 diabetes mellitus with diabetic cataract (principal); H25.12 Age-related nuclear cataract, left eye; K21.9 Gastro-esophageal reflux disease without esophagitis; Z90.49 Acquired absence of other specified parts of digestive tract; Z79.84 Long term (current) use of oral hypoglycemic drugs; Z88.6 Allergy status to analgesic agent; Z91.041 Radiographic dye allergy status; Z80.51 Family history of malignant neoplasm of kidney; Z80.41 Family history of malignant neoplasm of ovary
CPT/HCPCS: 82962

== ENCOUNTER 2019-11-21 05:40 | Outpatient (CLI) | payer MEDICARE, BC ==
[~2019-11-21] VITALS: Ht 152 cm; Wt 72.0 kg
== END 2019-11-22 11:48 | disposition home or self-care (01) ==
LOC: PREOP 05:40
PROVIDERS: ATTEND Specialist
DX: Z01.818 Encounter for other preprocedural examination (principal)

== ENCOUNTER 2019-11-25 06:29 | Day surgery (SDC) | payer MEDICARE, BC ==
[~2019-11-25] VITALS: Ht 152.4 cm; Wt 72.0 kg
[2019-11-25 06:42] VITALS: BP 147/93
[2019-11-25] MEDS ORDERED: POVIDONE (BETADINE) OPHTH SOLN 5% 30 ML OP ONE (06:45)
[2019-11-25] MEDS ORDERED: TIMOLOL MALEATE 0.5% 5 ML (TIMOPTIC) BTL OU PRN (06:45)
[2019-11-25] MEDS ORDERED: LIDOCAINE PF 1% 2 ML VIAL IR PRN (06:45)
[2019-11-25] MEDS ORDERED: MOXIFLOXACIN OPHTH SOLN 5 MG/ML 0.3 ML SYRINGE OP ONE (06:45)
[2019-11-25] MEDS: TETRACAINE 0.5% OPHTH SOLN 4 ML BTL (SINGLE DOSE ONLY) OU PRN ×4 (06:52→07:13)
[2019-11-25] MEDS: PHENYLEPHRINE 10% OPHTH (NEO-SYN) 5 ML BTL OU SCH ×3 (07:00→07:13)
[2019-11-25] MEDS: CYCLOPENTOLATE 1% (CYCLOGYL) 2 ML DROPS OP SCH ×3 (07:00→07:13)
[2019-11-25] MEDS ORDERED: MIDAZOLAM 2 MG/2 ML (VERSED) VIAL ONE (07:38)
[2019-11-25 08:05] VITALS: BP 136/69
[2019-11-25] MEDS ORDERED: acetaZOLAMIDE ER 500 MG CAP (DIAMOX SEQUELS) PO ONE (08:30)
--- NOTE | 2019-11-25 09:38 | Ophthalmologist Pre-Op Note ---
Pre-Operative Progress Note H&P Reviewed The H&P was reviewed, patient examined and no changes noted. Date H&P Reviewed: Nov 25, 2019 Time H&P Reviewed: 07:35 Pre-Op Dx Cataract, Right Eye JUAN ANTONIO GUTIERREZ MD Nov 25, 2019 09:38
--- NOTE | 2019-11-25 09:39 | Ophthalmology Operative Report ---
Cataract removal/placement IOL PREOPERATIVE DIAGNOSIS: Cataract Right Eye POSTOPERATIVE DIAGNOSIS: Cataract Right Eye PROCEDURE: Cataract removal and placement of posterior chamber implant, right eye SURGEON: Reji Gutierrez ANESTHESIA: Topical with sedation COMPLICATIONS: None ESTIMATED BLOOD LOSS: Minimal DESCRIPTION OF PROCEDURE: After proper informed consent was obtained, the patient, a 69 female, was taken to the Operating Room and the right eye was anesthetized with tetracaine. The right eye was then prepped and draped in the usual manner. A wire lid speculum was placed. A paracentesis was made at the left hand position. Preservative free lidocaine was injected into the anterior chamber followed by viscoelastic. A clear corneal incision was made in the temporal position. A capsulorrhexis was preformed and the central nuclear and cortical material were removed. The posterior capsule was polished and Vasquez 21.0 AU00T0 IOL was placed into the capsular bag. The residual viscoelastic was aspirated and balanced saline solution was injected into the anterior chamber. Moxifloxacin was injected into the anterior chamber. The wound was checked and found to be water tight. The patient tolerated the procedure well without complications. REJI GUTIERREZ MD Nov 25, 2019 09:39
--- NOTE | 2019-11-25 11:08 | Anesthesia-General Post-Op ---
MAC Patient Condition Mental Status/LOC: Same as Preop Cardiovascular: Satisfactory Nausea/Vomiting: Absent Respiratory: Satisfactory Pain: Controlled Complications: Absent Post Op Complications Complications None Follow Up Care/Instructions Patient Instructions None needed. Anesthesiology Discharge Order Discharge Order Patient was seen this morning after the procedure and she was doing well, no complaints, stable vital signs, no apparent adverse anesthesia problems. JACK VASQUEZ DO Nov 25, 2019 11:08
[2019-11-26] MEDS ORDERED: HYDR-3455 PO (08:00)
[2019-11-26] MEDS ORDERED: VALA1000 PO (08:00)
== END 2019-11-25 08:05 | disposition home or self-care (01) ==
LOC: SDC 06:29
PROVIDERS: ATTEND Specialist
DX: E11.36 Type 2 diabetes mellitus with diabetic cataract (principal); H25.11 Age-related nuclear cataract, right eye; K21.9 Gastro-esophageal reflux disease without esophagitis; Z88.6 Allergy status to analgesic agent; Z91.041 Radiographic dye allergy status; Z87.891 Personal history of nicotine dependence; Z79.84 Long term (current) use of oral hypoglycemic drugs; Z79.899 Other long term (current) drug therapy; Z83.518 Family history of other specified eye disorder; Z83.3 Family history of diabetes mellitus; Z80.51 Family history of malignant neoplasm of kidney

== ENCOUNTER 2019-11-26 06:47 | Emergency (ER) | payer MEDICARE, BC ==
[~2019-11-26] VITALS: Ht 152.4 cm; Wt 72.7 kg
--- NOTE | 2019-11-26 07:45 | ED Integumentary General ---
General Stated Complaint: LUMPS ON BACK OF HEAD Source: patient Exam Limitations: no limitations History of Present Illness Date Seen by Provider: Nov 26, 2019 Time Seen by Provider: 07:25 Initial Comments This 69-year-old white female presents with a painful rash to the left occipital. Patient had pain in the area 3 days ago. She noticed red bumps over the left occiput and frontal region this morning precipitating presentation to the emergency department. The patient has had recent cataract surgery. She is using postoperative eyedrops. Patient denies fever, chills, stiff neck, photophobia, pain or rash in another region, or similar episodes in the past. Patient denies immunosuppression or autoimmune disease. Allergies and Home Medications Allergies Coded Allergies: Iodinated Contrast Media (Verified Allergy, Unknown, 01/13/19) aspirin (Unverified Allergy, Unknown, 09/02/19) Home Medications Famotidine 20 Mg Tablet, 20 MG PO BID, (Reported) Metformin HCl 1,000 Mg Tablet, 1,000 MG PO BID, (Reported) Multivitamin 1 Each Capsule, 1 EACH PO DAILY, (Reported) Patient Home Medication List Home Medication List Reviewed: Yes Review of Systems Review of Systems Constitutional: No chills, No fever EENTM: other (painful rash over the left side of the caput.); No ear discharge, No ear pain, No blurred vision Respiratory: no symptoms reported Cardiovascular: no symptoms reported Genitourinary: no symptoms reported Musculoskeletal: no symptoms reported Skin: see HPI, rash (painful red rash over the left side of the caput.) Psychiatric/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: No Symptoms Reported Endocrine: No Symptoms Reported Hematologic/Lymphatic: No Symptoms Reported Past Eebzlgw-Lyritw-Hpumqw Hx Past Med/Social Hx: Reviewed Nursing Past Med/Soc Hx Patient Social History Former Smoker, Quit: Sep 03, 2005 2nd Hand Smoke Exposure: No Recent Foreign Travel: No Contact w/Someone Who Travel: No Recent Hopitalizations: No Seasonal Allergies Seasonal Allergies: No Past Medical History Surgeries: Yes (EGD/ESOPHAGEAL DILATIONS) Appendectomy, Gallbladder, Oophorectomy, Tubal Ligation Respiratory: Yes (CPAP AT NIGHT) Sleep Apnea Currently Using CPAP: Yes (CPAP at night) Currently Using BIPAP: No Cardiac: No Hypertension 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: No 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 Genitourinary: Yes Kidney Stones Gastrointestinal: Yes (esophageal strictures status post dilation) Gastroesophageal Reflux, Diverticulosis, Hiatal Hernia Musculoskeletal: No Endocrine: Yes (Diabetes, Diet controlled) Diabetes, Non-Insulin dep HEENT: Yes Cataract Loss of Vision: Denies Hearing Impairment: Denies Cancer: No Psychosocial: No Integumentary: No Blood Disorders: No Adverse Reaction/Blood Tranf: No Family Medical History Cancer, Diabetes Physical Exam Vital Signs Vital Signs - First Documented 11/26/19 07:18 Temp 36.2 Pulse 90 Resp 20 B/P (MAP) 141/77 (98) Pulse Ox 96 O2 Delivery Room Air Capillary Refill : General Appearance: WD/WN, mild distress HEENT: normal ENT inspection, other (there are areas of tender red 1 cm in diameter erythematous lesions over the left side of the skull. There is no facial or eye involvement.) Neck: normal inspection Cardiovascular: regular rate, rhythm Respiratory: lungs clear Gastrointestinal: normal bowel sounds, soft Back: normal inspection Extremities: normal range of motion, normal inspection Neurologic/Psychiatric: no motor/sensory deficits Skin: other (erythematous rash over the left skull) Skin Problem Location: scalp Skin Problem Character: erythema Progress/Results/Core Measures Results/Orders My Orders Orders - LISETTE CORTEZ MD Hydrocodone/Apap 5/325 Tablet (Lortab 5 (11/26/19 08:00) Vital Signs/I&O 11/26/19 07:18 Temp 36.2 Pulse 90 Resp 20 B/P (MAP) 141/77 (98) Pulse Ox 96 O2 Delivery Room Air Progress Progress Note : Time: 07:55 Progress Note I discussed the rash and the presentation with the patient and her . I believe this is shingles. Patient was given 2 Vicodin orally in the emergency department. I have prescribed Vicodin and valacyclovir. Departure Impression Primary Impression: Herpes zoster Qualified Codes: B02.9 - Zoster without complications Disposition: 01 HOME, SELF-CARE Condition: Improved Departure-Patient Inst. Decision time for Depature: 07:58 Referrals: JOON ARCEO MD (PCP/Family) Primary Care Physician Patient Instructions: Shingles (DC) Add. Discharge Instructions: Valacyclovir and Vicodin as prescribed. Follow-up with your doctor MARIELOS on Thursday for recheck. Return if any problems or questions. Scripts Hydrocodone/Acetaminophen (Vicodin 5-300 mg Tablet) 1 Each Tablet 1-2 EACH PO Q6H PRN for PAIN-MODERATE MDD 10 for 7 Days, TAB Prov: LISETTE CORTEZ MD 11/26/19 Valacyclovir HCl (Valacyclovir) 1,000 Mg Tablet 1000 MG PO Q8H for 7 Days, TAB Prov: LISETTE CORTEZ MD 11/26/19 LISETTE CORTEZ MD Nov 26, 2019 07:45
[2019-11-26] MEDS ORDERED: HYDR-3455 PO (08:00)
[2019-11-26] MEDS ORDERED: HYDROcodone/APAP 5 MG/325 MG (LORTAB) TAB PO ONE (08:00)
[2019-11-26] MEDS ORDERED: VALA1000 PO (08:00)
[2019-11-26 08:24] VITALS: BP 141/77
== END 2019-11-26 08:24 | disposition home or self-care (01) ==
LOC: EDUNIT# 06:47 → ER 06:49
DX: B02.9 Zoster without complications (principal); I10 Essential (primary) hypertension; K21.9 Gastro-esophageal reflux disease without esophagitis; E11.9 Type 2 diabetes mellitus without complications; Z87.442 Personal history of urinary calculi; Z88.6 Allergy status to analgesic agent; Z91.041 Radiographic dye allergy status; Z79.84 Long term (current) use of oral hypoglycemic drugs; Z87.891 Personal history of nicotine dependence; Z90.49 Acquired absence of other specified parts of digestive tract; Z98.41 Cataract extraction status, right eye
CPT/HCPCS: 99283

== ENCOUNTER 2023-01-07 10:43 | Emergency (ER) | payer MEDICARE, BC ==
[~2023-01-07] VITALS: Ht 152 cm; Wt 74.0 kg
[~2023-01-07 10:43] MED LIST changes: +HYDR-3455 PO; -LISI-556 PO; +LISI5TAB20 PO; +METF-865 PO; -METF500T8 PO; -METO-387 PO; +MTP25TSR PO; +VALA10007 PO
--- NOTE | 2023-01-07 11:07 | ED General ---
General Chief Complaint: Trauma-Non Activation Stated Complaint: FALL | RT SIDE INJ Nursing Triage Note: PT STATES HER DOG KNOCKED HER DOWN, CC OF RT RIB PAIN, DENIES HITTING HER HEAD Source of Information: Patient Exam Limitations: No Limitations History of Present Illness Date Seen by Provider: Jan 07, 2023 Time Seen by Provider: 11:00 Initial Comments 72-year-old female presents to the ED after a fall. States the dog made her trip, she landed on her right arm, and is now complaining of right rib pain. Denies any right arm pain, has full range of motion of the right arm. Denies hitting her head. States she felt a pop in her ribs when she fell. States injury occurred approximately 1 hour prior to arrival. Not taking any pain medication. Past medical history includes diabetes and hypertension. Currently on metformin and 1 blood pressure med. Allergies and Home Medications Allergies Coded Allergies: Iodinated Contrast Media (Verified Allergy, Unknown, 01/13/19) aspirin (Unverified Allergy, Unknown, 09/02/19) Patient Home Medication List Famotidine (Pepcid) 20 Mg Tablet, 20 MG PO BID, (Reported) Entered as Reported by: DENICE ESPANA on 11/02/19 1213 Hydrocodone/Acetaminophen (Vicodin 5-300 mg Tablet) 1 Each Tablet, 1-2 EACH PO Q6H PRN for PAIN-MODERATE Prescribed by: LISETTE CORTEZ MD on 11/26/19 0800 Metformin HCl (Metformin HCl) 1,000 Mg Tablet, 1,000 MG PO BID, (Reported) Entered as Reported by: MARITZA POTTER on 01/14/19 0842 Multivitamin (Multivitamins) 1 Each Capsule, 1 EACH PO DAILY, (Reported) Entered as Reported by: DENICE ESPANA on 11/02/19 1213 Valacyclovir HCl (Valacyclovir) 1,000 Mg Tablet, 1,000 MG PO Q8H Prescribed by: LISETTE CORTEZ MD on 11/26/19 0800 Past Diuwywp-Pmraaw-Silksv Hx Patient Social History Tobacco Use?: No Substance use?: No Alcohol Use?: No Seasonal Allergies Seasonal Allergies: No Past Medical History Surgery/Hospitalization HX: DIABETIC TYPE II, HYPERTENSION, GALLBLADDER, APPE, TUBAL LIGATION Surgeries: Yes (EGD/ESOPHAGEAL DILATIONS) Appendectomy, Gallbladder, Oophorectomy, Tubal Ligation Respiratory: Yes (CPAP AT NIGHT) Sleep Apnea Currently Using CPAP: Yes (CPAP at night) Currently Using BIPAP: No Cardiac: No Hypertension 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 Genitourinary: Yes Kidney Stones Gastrointestinal: Yes (esophageal strictures status post dilation) Gastroesophageal Reflux, Diverticulosis, Hiatal Hernia Musculoskeletal: No Endocrine: Yes (Diabetes, Diet controlled) Diabetes, Non-Insulin dep HEENT: Yes Cataract Loss of Vision: Denies Hearing Impairment: Denies Cancer: No Psychosocial: No Integumentary: No Blood Disorders: No Adverse Reaction/Blood Tranf: No Family Medical History Cancer, Diabetes Physical Exam Vital Signs Vital Signs - First Documented 01/07/23 10:50 Temp 36.5 Pulse 88 Resp 20 B/P (MAP) 171/91 (117) Pulse Ox 95 O2 Delivery Room Air Capillary Refill : Less Than 3 Seconds Height, Weight, BMI Height: 5'1.00" Weight: 161lbs. 11.2oz. [id number]; 32.00 BMI Method:Stated Progress/Results/Core Measures Suspected Sepsis SIRS Temperature: Pulse: 88 Respiratory Rate: 20 Blood Pressure 171 /91 Mean: 117 Results/Orders My Orders Orders - RONNY MACHADO APRN Ribs, Right 2-3 Views (01/07/23 11:04) Vital Signs/I&O 01/07/23 10:50 Temp 36.5 Pulse 88 Resp 20 B/P (MAP) 171/91 (117) Pulse Ox 95 O2 Delivery Room Air Capillary Refill : Less Than 3 Seconds Blood Pressure Mean: 117 Departure Impression Primary Impression: Contusion of rib on right side Disposition: 01 HOME, SELF-CARE Condition: Stable Departure-Patient Inst. Decision time for Depature: 11:40 Referrals: JOON ARCEO MD (PCP/Family) Primary Care Physician Patient Instructions: Bruised Rib Add. Discharge Instructions: You may take ibuprofen or Tylenol as needed for pain. Follow-up with your primary care provider. Return for uncontrolled pain, shortness of breath, abdominal pain, or any other new, concerning, or worsening symptoms. All discharge instructions reviewed with patient and/or family. Voiced understanding. RONNY MACHADO APRN Jan 07, 2023 11:07
--- NOTE | 2023-01-07 11:29 | Diagnostic Imaging Report ---
INDICATION: Injury, pain. FINDINGS: Frontal and oblique views of the right ribs performed. FINDINGS: The right lung is clear. No effusion or pneumothorax. No pleural hematoma. No rib fracture deformity or bony destructive process. There is old deformity to the mid shaft of the right clavicle, chronic. IMPRESSION: No rib fracture or acute abnormality apparent. Dictated by: Dictated on workstation # [id number]
[2023-01-07 11:45] VITALS: BP 171/91
== END 2023-01-07 11:45 | disposition home or self-care (01) ==
LOC: EDUNIT# 10:43 → ER 10:46
DX: S20.211A Contusion of right front wall of thorax, initial encounter (principal); Z88.6 Allergy status to analgesic agent; W01.0XXA Fall on same level from slipping, tripping and stumbling without subsequent striking against object, initial encounter; X50.1XXA Overexertion from prolonged static or awkward postures, initial encounter
CPT/HCPCS: 71100

== ENCOUNTER 2023-09-22 10:36 | Emergency (ER) | payer MEDICARE, BC ==
[~2023-09-22] VITALS: Ht 152.4 cm; Wt 72.5 kg
[2023-09-22] MEDS ORDERED: NS IV 500 ML 500 ML IV ONE (11:30)
--- NOTE | 2023-09-22 11:35 | ED Cardiac General ---
History of Present Illness General Chief Complaint: Cardiac/General Problems Stated Complaint: HEART FLUTTER FOR PAST HOUR Nursing Triage Note: PT AMB TO RM 10 WITH CC OF CHEST DISCOMFORT AND A FLUTTER FOR AN HOUR. PT STATES THAT SHE HAS SOB AND TIGHTNESS IN HER CHEST. Source: patient Exam Limitations: no limitations History of Present Illness Date Seen by Provider: Sep 22, 2023 Time Seen by Provider: 11:19 Initial Comments 73-year-old female presents to the ER with complaint of a fluttering of her heart. She reports that she has had this intermittently for several months. She said her primary care provider ordered a Holter monitor, but she never had it completed. She states that normally the episodes usually last 5 to 10 minutes and improve with rest. She states that today she came in because it lasted much longer, states it lasted approximately 1.5 hours and did not improve with rest. She states that currently she is not having the sensation. She states that today she became dizzy and short of air with it. States that sometimes she becomes hot and sweaty with the fluttering, but states that did not occur today. She denies any chest pain. She denies any recent illness, denies fevers, sore throat, cough, abdominal pain, nausea, vomiting, diarrhea. Past medical history includes diabetes and hypertension. She currently takes metformin and losartan. Allergies and Home Medications Allergies Coded Allergies: Iodinated Contrast Media (Verified Allergy, Unknown, 01/13/19) aspirin (Unverified Allergy, Unknown, 09/02/19) Patient Home Medication List Home Medication List Reviewed: Yes Famotidine (Pepcid) 20 Mg Tablet, 20 MG PO BID, (Reported) Entered as Reported by: DENICE ESPANA on 11/02/19 1213 Hydrocodone/Acetaminophen (Vicodin 5-300 mg Tablet) 1 Each Tablet, 1-2 EACH PO Q6H PRN for PAIN-MODERATE Prescribed by: LISETTE CORTEZ MD on 11/26/19 0800 Metformin HCl (Metformin HCl) 1,000 Mg Tablet, 1,000 MG PO BID, (Reported) Entered as Reported by: MARITZA POTTER on 01/14/19 0842 Multivitamin (Multivitamins) 1 Each Capsule, 1 EACH PO DAILY, (Reported) Entered as Reported by: DENICE ESPANA on 11/02/19 1213 Valacyclovir HCl (Valacyclovir) 1,000 Mg Tablet, 1,000 MG PO Q8H Prescribed by: LISETTE CORTEZ MD on 11/26/19 0800 Review of Systems Review of Systems Constitutional: see HPI Past Dycbvfx-Nytlhe-Xsmtod Hx Patient Social History Tobacco Use?: No Substance use?: No Alcohol Use?: No Immunizations Up To Date First/Initial COVID19 Vaccinat: YES Second COVID19 Vaccination Paulo: YES Third COVID19 Vaccination Date: YES Seasonal Allergies Seasonal Allergies: No Past Medical History Surgery/Hospitalization HX: DIABETIC TYPE II, HYPERTENSION, GALLBLADDER, APPE, TUBAL LIGATION Surgeries: Yes (EGD/ESOPHAGEAL DILATIONS) Appendectomy, Gallbladder, Oophorectomy, Tubal Ligation Respiratory: Yes (CPAP AT NIGHT) Sleep Apnea Currently Using CPAP: Yes (CPAP at night) Currently Using BIPAP: No Cardiac: No Hypertension 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 Genitourinary: Yes Kidney Stones Gastrointestinal: Yes (esophageal strictures status post dilation) Gastroesophageal Reflux, Diverticulosis, Hiatal Hernia Musculoskeletal: No Endocrine: Yes (Diabetes, Diet controlled) Diabetes, Non-Insulin dep HEENT: Yes Cataract Loss of Vision: Denies Hearing Impairment: Denies Cancer: No Psychosocial: No Integumentary: No Blood Disorders: No Adverse Reaction/Blood Tranf: No Family Medical History Cancer, Diabetes Physical Exam Vital Signs Vital Signs - First Documented 09/22/23 10:42 Temp 36.4 Pulse 108 B/P (MAP) 164/92 (116) Pulse Ox 96 O2 Delivery Room Air Capillary Refill : Height, Weight, BMI Height: 5'1.00" Weight: 161lbs. 11.2oz. 73.359502pl; 31.00 BMI Method:Stated General Appearance: No Apparent Distress, WD/WN Neck: Normal Inspection, Supple Respiratory: Lungs Clear, Normal Breath Sounds, No Accessory Muscle Use, No Respiratory Distress Cardiovascular: Regular Rate, Rhythm Extremity: Normal Inspection, Normal Range of Motion Neurologic/Psychiatric: Alert, Normal Mood/Affect Skin: Normal Color, Warm/Dry Progress/Results/Core Measures Results/Orders Lab Results Laboratory Tests Test 09/22/23 10:54 Range/Units White Blood Count 8.0 4.3-11.0 10^3/uL Red Blood Count 5.13 H 3.80-5.11 10^6/uL Hemoglobin 14.5 11.5-16.0 g/dL Hematocrit 45 35-52 % Mean Corpuscular Volume 88 80-99 fL Mean Corpuscular Hemoglobin 28 25-34 pg Mean Corpuscular Hemoglobin Concent 32 32-36 g/dL Red Cell Distribution Width 12.8 10.0-14.5 % Platelet Count 254 130-400 10^3/uL Mean Platelet Volume 11.2 9.0-12.2 fL Immature Granulocyte % (Auto) 0 % Neutrophils (%) (Auto) 57 42-75 % Lymphocytes (%) (Auto) 32 12-44 % Monocytes (%) (Auto) 5 0-12 % Eosinophils (%) (Auto) 6 0-10 % Basophils (%) (Auto) 1 0-10 % Neutrophils # (Auto) 4.5 1.8-7.8 10^3/uL Lymphocytes # (Auto) 2.5 1.0-4.0 10^3/uL Monocytes # (Auto) 0.4 0.0-1.0 10^3/uL Eosinophils # (Auto) 0.5 H 0.0-0.3 10^3/uL Basophils # (Auto) 0.1 0.0-0.1 10^3/uL Immature Granulocyte # (Auto) 0.0 0.0-0.1 10^3/uL Sodium Level 141 135-145 MMOL/L Potassium Level 3.8 3.6-5.0 MMOL/L Chloride Level 105 98-107 MMOL/L Carbon Dioxide Level 19 L 21-32 MMOL/L Anion Gap 17 H 5-14 MMOL/L Blood Urea Nitrogen 13 7-18 MG/DL Creatinine 0.84 0.60-1.30 MG/DL Estimat Glomerular Filtration Rate 73 BUN/Creatinine Ratio 15 Glucose Level 191 H 70-105 MG/DL Calcium Level 9.5 8.5-10.1 MG/DL Corrected Calcium 9.3 8.5-10.1 MG/DL Magnesium Level 1.9 1.6-2.4 MG/DL Total Bilirubin 0.5 0.1-1.0 MG/DL Aspartate Amino Transf (AST/SGOT) 57 H 5-34 U/L Alanine Aminotransferase (ALT/SGPT) 84 H 0-55 U/L Alkaline Phosphatase 101 40-136 U/L Total Protein 8.2 6.4-8.2 GM/DL Albumin 4.3 3.2-4.5 GM/DL TSH [place] Testing 0.54 0.35-4.94 UIU/ML My Orders Orders - RONNY GARCIA APRN Cbc And Automated Diff (09/22/23 11:29) Magnesium (09/22/23 11:29) Comprehensive Metabolic Panel (09/22/23 11:29) Monitor-Rhythm Ecg Trace Only (09/22/23 11:29) Ed Iv/Invasive Line Start (09/22/23 11:29) Thyroid Analyzer (09/22/23 11:29) Ns Iv 500 Ml (Ns Iv 500 Ml) (09/22/23 11:30) Medications Given in ED Current Medications Medications Dose Ordered Sig/Mary Route Start Time Stop Time Status Last Admin Dose Admin Sodium Chloride 500 ml @ 0 mls/hr Q0M ONCE IV 09/22/23 11:30 09/22/23 11:31 DC 09/22/23 11:35 0 MLS/HR Vital Signs/I&O 09/22/23 09/22/23 10:42 12:27 Temp 36.4 Pulse 108 89 B/P (MAP) 164/92 (116) 136/70 Pulse Ox 96 93 O2 Delivery Room Air Room Air Blood Pressure Mean: 116 Progress Progress Note : Progress Note Patient seen and evaluated, resting comfortably in bed, no acute distress. Based on exam and symptoms, work-up initiated including CBC, CMP, magnesium, thyroid analyzer, EKG. 500 mL of IV fluids ordered. 1220 Labs reviewed. CBC grossly normal. CMP shows slightly decreased CO2 19, slightly elevated anion gap 17, glucose elevated 191. AST slightly elevated 57, ALT slightly elevated at 84. TSH normal. Results discussed with patient. Patient instructed to follow-up with primary care provider to get a Holter monitor ordered and to discuss her elevated liver function test. Patient is stable for discharge. All questions sought and answered. Discharge instructions and return precautions provided. Initial ECG Impression Date: Sep 22, 2023 Initial ECG Impression Time: 10:48 Initial ECG Rate: 104 Initial ECG Rhythm: S.Tach Initial ECG Intervals: Normal Initial ECG Impression: Nonspecific Changes Initial ECG Comparisson: Unchanged Departure Impression Primary Impression: Irregular heart beat Disposition: HOME, SELF-CARE Condition: Stable Departure-Patient Inst. Decision time for Depature: 12:24 Referrals: JOON BENAVIDES MD (PCP/Family) Primary Care Physician Patient Instructions: Arrhythmias (DC) Add. Discharge Instructions: Follow-up with Dr. Benavides so that she can order the Holter monitor. Call her today to let her know that you were seen in the emergency department. Follow-up with Dr. Benavides regarding your elevated liver function test. Return for severe chest pain, severe shortness of breath, or any other new, concerning, or worsening symptoms. All discharge instructions reviewed with patient and/or family. Voiced understanding. Copy Copies To 1: JOON BENAVIDES MD, BRITTANY R APRN Sep 22, 2023 11:35
[2023-09-22 11:36] LABS: BASOPHILS # (AUTO) 0.1 10^3/uL (0.0-0.1); BASOPHILS % (AUTO) 1 % (0-10); EOSINOPHILS # (AUTO) 0.5 10^3/uL (0.0-0.3); EOSINOPHILS % (AUTO) 6 % (0-10); HEMATOCRIT 45 % (35-52); HEMOGLOBIN 14.5 g/dL (11.5-16.0); LYMPHOCYTES # (AUTO) 2.5 10^3/uL (1.0-4.0); LYMPHOCYTES % (AUTO) 32 % (12-44); MEAN CORPUSCULAR HEMOGLOBIN 28 pg (25-34); MEAN CORPUSCULAR HGB CONC 32 g/dL (32-36); MEAN CORPUSCULAR VOLUME 88 fL (80-99); MEAN PLATELET VOLUME 11.2 fL (9.0-12.2); MONOCYTES # (AUTO) 0.4 10^3/uL (0.0-1.0); MONOCYTES % (AUTO) 5 % (0-12); NEUTROPHILS # (AUTO) 4.5 10^3/uL (1.8-7.8); NEUTROPHILS % (AUTO) 57 % (42-75); PLATELET COUNT 254 10^3/uL (130-400)
[2023-09-22 11:38] LABS: ALBUMIN 4.3 GM/DL (3.2-4.5); POTASSIUM 3.8 MMOL/L (3.6-5.0)
[2023-09-22 11:39] LABS: CALCIUM 9.5 MG/DL (8.5-10.1)
[2023-09-22 11:40] LABS: TOTAL PROTEIN 8.2 GM/DL (6.4-8.2)
[2023-09-22 11:42] LABS: BILIRUBIN,TOTAL 0.5 MG/DL (0.1-1.0)
[2023-09-22 11:44] LABS: CREATININE SERUM 0.84 MG/DL (0.60-1.30)
[2023-09-22 11:47] LABS: MAGNESIUM 1.9 MG/DL (1.6-2.4)
[2023-09-22 12:07] LABS: TSH (THYROID ANALYZER) 0.54 UIU/ML (0.35-4.94)
[2023-09-22 12:27] VITALS: BP 136/70
== END 2023-09-22 12:34 | disposition home or self-care (01) ==
LOC: EDUNIT# 10:36 → ER 10:37
DX: I49.9 Cardiac arrhythmia, unspecified (principal); G47.30 Sleep apnea, unspecified; E11.65 Type 2 diabetes mellitus with hyperglycemia; I10 Essential (primary) hypertension; Z79.84 Long term (current) use of oral hypoglycemic drugs; Z99.89 Dependence on other enabling machines and devices
CPT/HCPCS: 36415; 80053; 83735; 84443; 85025; 93005